=== PATIENT | female | born 1960 | race Caucasian/White ===

== ENCOUNTER → 2019-12-22 14:16 | Outpatient (BNVA) | payer OTHER, SELFPAY | PROVIDERS: PCP Internal Medicine; Visit Provider Anesthesiology | DX: M47.816 Spondylosis without myelopathy or radiculopathy, lumbar region (principal); M51.36 Other intervertebral disc degeneration, lumbar region; M96.1 Postlaminectomy syndrome, not elsewhere classified; G89.4 Chronic pain syndrome | CPT/HCPCS: 99212 ==

== ENCOUNTER 2020-01-07 07:36 | Outpatient (REF) | payer OTHER, SELFPAY ==
[2020-01-07 09:35] LABS: MANUAL DIFF FLAG NO
[2020-01-07 09:42] LABS: Basophils Percent Auto 0.8 % (0-2); Eosinophils Absolute Auto 0.1 X10*3/uL (0.0-0.4); Eosinophils Percent Auto 2.3 % (0-4); Hemoglobin 13.2 g/dl (12.0-16.0); Imm Gran Abs Auto 0.01 X10*3/uL (0.00-0.03); Imm Gran Pct Auto 0.2 % (0.0-0.4); Lymphocytes Absolute Auto 1.3 X10*3/uL (1.2-4.9); Lymphocytes Percent Auto 26.7 % (20-40); Mean Corpuscular HGB Conc 32.2 g/dl (31.0-35.0); Mean Corpuscular Hemoglobin 31.3 pg (27.0-33.0); Mean Corpuscular Volume 97.2 fL (80-98); Mean Platelet Volume 10.6 fL (9.4-12.3); Monocytes Absolute Auto 0.4 X10*3/uL (0.1-1.2); Monocytes Percent Auto 7.6 % (2-11); Neutrophils Percent Auto 62.4 % (45-73); Platelet Count 265 X10*3/uL (160-400); Red Blood Count 4.22 X10*6/uL (4.20-5.50); Red Cell Distribution Width 12.5 % (11.0-16.0); White Blood Count 4.8 X10*3/uL (4.8-10.8)
[2020-01-07 09:46] LABS: Estimated Average Glucose 114 mg/dL; Hemoglobin A1c % 5.6 %
[2020-01-07 10:04] LABS: Anion Gap 14 (12-20); Blood Urea Nitrogen 13 mg/dL (9-16); Calcium 8.7 mg/dL (8.4-10.2); Carbon Dioxide 27 mmol/L (22-29); Chloride 107 mmol/L (96-108); Cholesterol 249 mg/dL; Estimated Glomerular Filt Rate > 60; Glucose Fasting 96 mg/dL (60-99); HDL Cholesterol 66 mg/dL; LDL Cholesterol Calculated 170 mg/dl; Potassium 4.5 mmol/l (3.3-5.1); Sodium 143 mmol/L (135-145); Triglycerides 68 mg/dL
[2020-01-07 10:29] LABS: TSH reflex Free T4 1.08 mIU/mL (0.32-4.0)
== END 2020-01-07 07:37 | disposition home or self-care (01) ==
LOC: HO.LAB 07:36
PROVIDERS: PCP Internal Medicine; Visit Provider Nurse Practitioner Family
DX: Z00.00 Encounter for general adult medical examination without abnormal findings (principal)
CPT/HCPCS: 36415; 80048; 80061; 83036; 84443; 85025

== ENCOUNTER 2020-05-02 07:34 | Outpatient (REF) | payer OTHER, SELFPAY ==
[2020-05-02 07:59] LABS: MANUAL DIFF FLAG NO
[2020-05-02 08:03] LABS: Basophils Percent Auto 0.9 % (0-2); Eosinophils Absolute Auto 0.1 X10*3/uL (0.0-0.4); Eosinophils Percent Auto 2.7 % (0-4); Hematocrit 40.3 % (37-47); Hemoglobin 13.1 g/dl (12.0-16.0); Lymphocytes Absolute Auto 1.3 X10*3/uL (1.2-4.9); Lymphocytes Percent Auto 29.4 % (20-40); Mean Corpuscular HGB Conc 32.5 g/dl (31.0-35.0); Mean Corpuscular Volume 95.3 fL (80-98); Mean Platelet Volume 10.4 fL (9.4-12.3); Monocytes Absolute Auto 0.4 X10*3/uL (0.1-1.2); Monocytes Percent Auto 8.2 % (2-11); Neutrophils Absolute Auto 2.7 X10*3/uL (2.0-8.3); Neutrophils Percent Auto 58.8 % (45-73); Platelet Count 255 X10*3/uL (160-400); Red Blood Count 4.23 X10*6/uL (4.20-5.50); Red Cell Distribution Width 12.4 % (11.0-16.0); White Blood Count 4.5 X10*3/uL (4.8-10.8)
[2020-05-02 08:37] LABS: Alanine Aminotransferase 10 U/L (0-31); Albumin Level 4.5 g/dL (3.5-5.0); Alkaline Phosphatase 107 U/L (39-117); Anion Gap 11 (12-20); Aspartate Amino Transferase 16 U/L (5-31); Bilirubin Total 0.5 mg/dL (0.0-1.0); Blood Urea Nitrogen 15 mg/dL (9-16); Calcium 9.5 mg/dL (8.4-10.2); Carbon Dioxide 29 mmol/L (22-29); Chloride 106 mmol/L (96-108); Cholesterol 230 mg/dL; Estimated Glomerular Filt Rate > 60; Glucose Fasting 105 mg/dL (60-99); HDL Cholesterol 54 mg/dL; LDL Cholesterol Calculated 162 mg/dl; Sodium 141 mmol/L (135-145); Total Protein 6.7 g/dL (6.5-8.0); Triglycerides 70 mg/dL
[2020-05-02 08:58] LABS: TSH reflex Free T4 1.33 uIU/mL (0.32-4.0)
[2020-05-07 13:22] LABS: Vitamin D 25-OH, D2 <4 ng/mL; Vitamin D 25-OH, D3 48 ng/mL; Vitamin D 25-OH, Total 48 ng/mL (30-100)
== END 2020-05-02 07:35 | disposition home or self-care (01) ==
LOC: HO.LAB 07:34
PROVIDERS: PCP Internal Medicine; Visit Provider Internal Medicine
DX: E78.5 Hyperlipidemia, unspecified (principal); R63.5 Abnormal weight gain; E55.9 Vitamin D deficiency, unspecified
CPT/HCPCS: 36415; 80053; 80061; 82306; 84443; 85025

== ENCOUNTER → 2020-05-03 08:00 | Outpatient (BNVA) | payer OTHER, SELFPAY | PROVIDERS: PCP Internal Medicine; Visit Provider Anesthesiology | DX: M47.816 Spondylosis without myelopathy or radiculopathy, lumbar region (principal); M51.36 Other intervertebral disc degeneration, lumbar region; M96.1 Postlaminectomy syndrome, not elsewhere classified; G89.4 Chronic pain syndrome; Z79.899 Other long term (current) drug therapy | CPT/HCPCS: 99212 ==

== ENCOUNTER → 2020-08-22 10:01 | Outpatient (BNVA) | payer OTHER, SELFPAY | PROVIDERS: PCP Internal Medicine; Visit Provider Psychiatry & Neurology Neurology | DX: G47.62 Sleep related leg cramps (principal); G47.00 Insomnia, unspecified | CPT/HCPCS: 99202 ==

== ENCOUNTER 2020-08-25 09:00 | Outpatient (RCR) | payer OTHER, SELFPAY ==
--- NOTE | 2020-05-30 13:17 | MHC.PT.EP ---
[facility] [place] Office [place] [facility] [place] Office [address] Rowan Vnan [address] [phone] F: [phone] F: [phone] F: [phone] F: [phone] Physical Therapy Plan of Care Date of Evaluation: 05/30/20 Date of Surgery: 03/10/20 Diagnosis: chronic pain syndrome other intervertebral disc degenerative, lumbar region spondylosis withotu myelopathy or radiculopathy, lumbar region Assessment: 60 y/o male referred to PT with chronic pain syndrome, other intervertebral disc degeneration lumbar region, spondylosis without myelopathy or radiculopathy lumbar region. Pt has PMH significant for laminectomy lumbar spine 03/10/20, cervical fusion C4-7 2014, and anxiety/depression. She reports pain and difficulty with sitting, transitional movements and feels like she veers when she walks. Examination shows decreased lumbar AROM, decreased core and LE strength, poor squat mechanics, and impaired gait pattern with intermittent drifting. Pt reports Dr. Araujo would like her to perform nerve flossing. Recommend PT 2x/week for 4 weeks to address impairments, implement HEP, and optimize functional mobility. POC to include nerve glides, log-rolling, core stabilization, and balance training. Frequency and Duration: The patient will be seen 2x/week for 4 weeks Short Term Goals: 2 weeks: 1. I with HEP 2. Pt will demonstrate proper log roll technique without cues 5/5x 3. 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 I with HEP and self management 2. Pt will be able to sit > 30minutes with pain < 3/10 Treatment Plan: Modalities to reduce pain, spasms and effusion. Manual therapy to restore motion and function. Therapeutic exercise to improve strength and flexibility. Neuromuscular re-education for posture and balance. Therapeutic activities to return to functional activities of daily living. Electronically signed by: Missy Childs PT Please sign and return to therapist. Thank you for your referral.
--- NOTE | 2020-08-30 14:09 | MHC.PT.DC ---
[facility] [place] Office [place] Office [place] Office [address] Rowan Vann 140 [facility] [phone] F: [phone] F: [phone] F: [phone] F: [phone] Physical Therapy Discharge Report Diagnosis: chronic pain syndrome other intervertebral disc degenerative, lumbar region spondylosis withotu myelopathy or radiculopathy, lumbar region Date of Surgery: 03/10/20 Date of Evaluation: 05/30/20 Date of Discharge: 08/30/20 Treatments to Date: 12 Cancellations to Date: 5 No Shows to Date: 0 Discharge Status: Recommend MD Follow-up Discharge Summary: The patient overall reports minimal to no improvement with physical therapy to this point. She is still experiencing low back pain and radicular symptoms including lower extremity numbness. She is independent with her home exercise program including core stabilization and a thoracolumbar and lower extremity flexibility program. She is discharged from this physical therapy plan of care. She does have a follow-up with her doctor and her surgeon in the near future. Electronically signed by: Lady Pérez PT, DPT Please sign and return to therapist. Thank you for your referral.
== END 2020-08-30 14:10 | disposition home or self-care (01) ==
LOC: HO.PT 09:00
PROVIDERS: PCP Internal Medicine; Visit Provider Anesthesiology
DX: G89.4 Chronic pain syndrome (principal); M51.36 Other intervertebral disc degeneration, lumbar region; M47.816 Spondylosis without myelopathy or radiculopathy, lumbar region
CPT/HCPCS: 97110; 97112; 97161; 97530

== ENCOUNTER → 2020-09-07 09:06 | Outpatient (BNVA) | payer OTHER, SELFPAY | PROVIDERS: PCP Internal Medicine; Visit Provider Anesthesiology | DX: M47.816 Spondylosis without myelopathy or radiculopathy, lumbar region (principal); M51.36 Other intervertebral disc degeneration, lumbar region; M96.1 Postlaminectomy syndrome, not elsewhere classified; G89.4 Chronic pain syndrome | CPT/HCPCS: 99212 ==

== ENCOUNTER 2020-09-22 08:01 | Outpatient (REF) | payer OTHER, SELFPAY ==
[2020-09-22 08:45] LABS: MANUAL DIFF FLAG NO
[2020-09-22 08:55] LABS: Basophils Percent Auto 0.7 % (0-2); Eosinophils Absolute Auto 0.1 X10*3/uL (0.0-0.4); Hematocrit 39.8 % (37-47); Hemoglobin 12.9 g/dl (12.0-16.0); Imm Gran Abs Auto 0.01 X10*3/uL (0.00-0.03); Imm Gran Pct Auto 0.2 % (0.0-0.4); Lymphocytes Absolute Auto 1.4 X10*3/uL (1.2-4.9); Lymphocytes Percent Auto 30.2 % (20-40); Mean Corpuscular HGB Conc 32.4 g/dl (31.0-35.0); Mean Corpuscular Hemoglobin 31.1 pg (27.0-33.0); Mean Corpuscular Volume 95.9 fL (80-98); Mean Platelet Volume 10.4 fL (9.4-12.3); Monocytes Absolute Auto 0.4 X10*3/uL (0.1-1.2); Monocytes Percent Auto 9.7 % (2-11); Neutrophils Absolute Auto 2.6 X10*3/uL (2.0-8.3); Neutrophils Percent Auto 57.2 % (45-73); Platelet Count 216 X10*3/uL (160-400); Red Blood Count 4.15 X10*6/uL (4.20-5.50); Red Cell Distribution Width 12.3 % (11.0-16.0); White Blood Count 4.5 X10*3/uL (4.8-10.8)
[2020-09-23 09:31] LABS: Lyme Blot 1.41 index
[2020-09-24 13:28] LABS: Lyme Abs Screen POSITIVE
[2020-09-27 10:46] LABS: 18 KD (IgG) Band NON-REACTIVE; 23 KD (IgG) Band NON-REACTIVE; 23 KD (IgM) Band REACTIVE; 28 KD (IgG) Band NON-REACTIVE; 30 KD (IgG) Band NON-REACTIVE; 39 KD (IgM) Band NON-REACTIVE; 41 KD (IgM) Band NON-REACTIVE; 45 KD (IgG) Band NON-REACTIVE; 58 KD (IgG) Band NON-REACTIVE; 66 KD (IgG) Band NON-REACTIVE; 93 KD (IgG) Band NON-REACTIVE; Lyme IgG Blot Interp NEGATIVE (NEGATIVE); Lyme IgM Blot Interp NEGATIVE (NEGATIVE)
== END 2020-09-22 08:02 | disposition home or self-care (01) ==
LOC: HO.LAB 08:01
PROVIDERS: PCP Internal Medicine; Visit Provider Nurse Practitioner Family
DX: S30.860A Insect bite (nonvenomous) of lower back and pelvis, initial encounter (principal); W57.XXXA Bitten or stung by nonvenomous insect and other nonvenomous arthropods, initial encounter; D72.819 Decreased white blood cell count, unspecified
CPT/HCPCS: 36415; 85025; 86617; 86618

== ENCOUNTER → 2020-10-23 19:18 | Outpatient (REF) | payer OTHER, SELFPAY | LOC: HO.SL 19:18 | PROVIDERS: PCP Internal Medicine; Visit Provider Psychiatry & Neurology Neurology | DX: G47.62 Sleep related leg cramps (principal); G47.00 Insomnia, unspecified; R40.0 Somnolence | CPT/HCPCS: 95810 ==

== ENCOUNTER → 2020-11-13 13:46 | Outpatient (BNVA) | payer OTHER, SELFPAY | PROVIDERS: Visit Provider Orthopaedic Surgery | DX: M25.531 Pain in right wrist (principal) | CPT/HCPCS: 20550; 99202; J1100 ==

== ENCOUNTER → 2020-11-14 09:35 | Outpatient (BNVA) | payer OTHER, SELFPAY | PROVIDERS: PCP Internal Medicine; Visit Provider Psychiatry & Neurology Neurology ==

== ENCOUNTER 2021-01-17 10:57 | Observation (INO) | payer OTHER, SELFPAY ==
[2021-01-17] VITALS (7 sets, daily range): BP systolic 98–186; BP diastolic 53–95; PULSE 51–113; RESP 12–18; TEMP 36.1–36.9; O2SAT 96–100; BMI 25.7
--- NOTE | 2021-01-17 | ECG_ITS ---
Test Reason : marilyn symptoms Blood Pressure : / mmHG Vent. Rate : 098 BPM Atrial Rate : 098 BPM P-R Int : 158 ms QRS Dur : 070 ms QT Int : 350 ms P-R-T Axes : 060 -34 027 degrees QTc Int : 446 ms Normal sinus rhythm Possible Left atrial enlargement Left axis deviation Abnormal ECG No previous ECGs available Referred By: Generic ED Physician Electronically Signed By:NAREN HIGHTOWER MD
--- NOTE | ~2021-01-17 | CT_ITS ---
EXAMINATION: CT HEAD WITHOUT CONTRAST (STROKE PROTOCOL) CLINICAL INFORMATION: Stroke protocol. Tingling left arm and face. COMPARISON: None. TECHNIQUE: Contiguous axial imaging was performed from the skull base to vertex without intravenous administration of contrast. This CT examination was performed using dose optimization techniques as appropriate, variously including the following: *Automated exposure control *Adjustment of mA and/or kV according to patient size (this includes techniques or standardized protocols for targeted exams where dose is matched to indication/reason for exam; i.e. extremities or head) *Use of iterative reconstruction technique DLP: 637 mGy-cm. FINDINGS: There is no intracranial hemorrhage, hematoma, or extra-axial fluid collection. The ventricles are normal in size. There is no hydrocephalus, edema, or mass effect. The polanco-white matter differentiation appears symmetric. There is no acute infarct or mass lesion. The calvarium appears intact. There is no pneumocephalus or orbital emphysema. The visualized sinuses and middle ears and mastoid air cells show no significant mucosal thickening. There are no air-fluid levels. CT/CT head for stroke IMPRESSION: No acute intracranial findings. This critical result was discussed with Dr. Plunkett at 1208 hours on 01/17/2021. It was ascertained that the content and urgency of the report was understood at the time of direct communication.
--- NOTE | ~2021-01-17 | CT_ITS ---
EXAMINATION: CT ANGIOGRAM NECK WITH CONTRAST CT ANGIOGRAM BRAIN WITH CONTRAST CLINICAL INFORMATION: Possible thrombectomy. Large vessel occlusion. COMPARISON: Head CT 01/17/2021. TECHNIQUE: Test bolus sequences followed by intravenous administration 100 mL of Omnipaque 350. Helical imaging was performed in the axial plane from the thoracic inlet to the skull vertex. Delayed postcontrast imaging of the head was also performed. The data was processed at the ep technologist workstation for generation of MIP sequences. Angled MIPs and volume rendered reformatted images were also generated at an offline 3D workstation. Stenoses are assessed in accordance with NASCET criteria unless otherwise indicated. This CT examination was performed using dose optimization techniques as appropriate, variously including the following: *Automated exposure control *Adjustment of mA and/or kV according to patient size (this includes techniques or standardized protocols for targeted exams where dose is matched to indication/reason for exam; i.e. extremities or head) *Use of iterative reconstruction technique DLP: 1455 mGy-cm FINDINGS: Head CT: There is no intracranial hemorrhage, large acute infarction, or mass lesion. The ventricles are normal in size and configuration without evidence of hydrocephalus. There is no abnormal enhancement. The visualized paranasal sinuses and mastoid air cells are clear. Maxillary and mandibular dental disease is seen. Neck CTA: The aortic arch and great vessel origins are patent. The bilateral common carotid arteries are patent. Atheromatous changes are seen at the right carotid bifurcation without significant stenosis of the proximal internal carotid artery. The left internal carotid artery is patent. The bilateral vertebral arteries are patent. Head CTA: No proximal vessel occlusion is seen. There is a 2.8 mm medially projecting aneurysm arising from the paraclinoid segment of the left internal carotid artery best seen on series 6 image 292/891. Non-vascular findings: There is no consolidation within the upper lungs. A 5 mm pulmonary nodule seen in the right upper lobe abutting the pleura. CT/CT angio head neck stroke IMPRESSION: No acute intracranial abnormality identified. No large vessel occlusion or high-grade narrowing within the head or neck arteries. Incidentally noted 2.8 mm medially projecting aneurysm arising from the paraclinoid segment of the left internal carotid artery. 5 mm right upper lobe pulmonary nodule. According to the updated 2017 Fleischner Society recommendations, the advised follow-up imaging for solid nodules < 6 mm is: LOW RISK PATIENT: No routine follow-up. HIGH RISK PATIENT: Optional CT at 12 months. Degenerative changes are seen within the spine. There are postoperative findings of anterior cervical discectomy and fusion from C4 to C7. This critical result was discussed with Dr. Wallace on 01/17/2021 12:24 PM, and it was ascertained that the content and urgency of the report was understood at the time of direct communication.
--- NOTE | ~2021-01-17 | MR_ITS ---
EXAMINATION: MR BRAIN WITHOUT CONTRAST CLINICAL INFORMATION: Stroke. COMPARISON: CTA head and neck from 01/17/2021. TECHNIQUE: MRI of the brain was obtained using routine sequences without contrast. FINDINGS: Potential punctate focus of restricted diffusion within the right cerebellar hemisphere of these image ). No additional focal restricted diffusion is demonstrated to suggest acute or subacute cerebral ischemia. No evidence of acute or chronic hemorrhagic products on heme-sensitive imaging. Scattered periventricular and deep white matter T2 FLAIR hyperintensities consistent with mild underlying microangiopathy. The ventricles are normal in morphology and size. No abnormal mass effect. No midline shift. Normal appearance of the pituitary gland. Normal positioning of the cerebellar tonsils. Normal arterial and venous vascular flow voids are present. Normal, homogeneous marrow signal. Partially visualized anterior fusion of the cervical spine. Mild mucosal thickening of the paranasal sinuses. No signal abnormalities within the mastoids. MR/MR head/brain wo con IMPRESSION: 1. Potential punctate focus of restricted diffusion within the right cerebellar hemisphere may represent artifact versus a tiny acute infarct. 2. No additional acute intracranial abnormalities. 3. Mild underlying microangiopathy.
--- NOTE | 2021-01-17 11:28 | ED_ITS ---
HPI - Neuro Symptoms/Deficit General Chief Complaint: Neuro Symptoms/Deficit Stated Complaint: hbp Time Seen by Provider: 01/17/21 11:28 Source: patient Mode of arrival: ambulatory Limitations: no limitations History of Present Illness HPI Narrative: left facial, left arm and left leg tingling, started about 2 hours ago. Onset (ago): hour(s) Location: left face, left arm and left leg Severity: mild Associated symptoms: denies other symptoms Related Data Home Medications Medication Instructions Recorded Confirmed clonazepam 0.5 mg tablet 0.5 mg PO BID PRN 01/06/20 01/17/21 gabapentin 800 mg tablet 800 mg PO TID 01/06/20 01/17/21 acetaminophen 325 mg tablet 650 mg PO Q4H PRN 01/17/21 01/17/21 fluticasone propionate 50 1 spray INTRANASAL DAILY PRN 01/17/21 01/17/21 mcg/actuation nasal spray,suspension gabapentin 100 mg capsule 100 mg PO TID 01/17/21 01/17/21 melatonin 10 mg tablet 10 mg PO BEDTIME 01/17/21 01/17/21 Allergies Allergy/AdvReac Type Severity Reaction Status Date / Time Erythromycin Allergy Intermediate shortness Verified 11/14/20 09:36 of breath quetiapine [From SEROQUEL] Allergy Intermediate TREMORS, Verified 11/14/20 09:36 ISSUES WITH EYE PRESSURE, INCREASED SI trazodone [TRAZODONE] Allergy Mild DIFFICULTY Verified 11/14/20 09:36 BREATHING, shortness of breath Review of Systems Constitutional: Constitutional: Reports no additional constitutional complaints Eyes: Eyes: Reports no additional eye complaints ENT: Denies dizziness Cardiovascular: Cardiovascular: Reports no additional cardiovascular complaints Respiratory: Respiratory: Reports as per HPI Gastrointestinal: Gastrointestinal: Reports no additional gastrointestinal complaints Genitourinary: Genitourinary: Reports no additional female genitourinary complaints Musculoskeletal: Musculoskeletal: Reports no additional musculoskeletal complaints Integumentary/Breasts: Skin/Breast: Denies rash Neurologic: Reports system reviewed and no additional complaints, except as documented, Denies dizziness and Denies Sensory deficit (Neuro) Psychiatric: Psychiatric: Denies anxiety PMFSH Past Medical History Medical History Anxiety Chronic pain syndrome Daytime sleepiness De Quervain's disease (tenosynovitis) Disc degeneration, lumbar Dyslipidemia Left ear pain Leukopenia Mild recurrent major depression WILL (obstructive sleep apnea) Polyarthralgia Postlaminectomy syndrome, cervical Spondylosis without myelopathy or radiculopathy, lumbar region Weight gain Surgical History History of carpal tunnel release History of fusion of cervical spine Status post lumbar spine surgery for decompression of spinal cord Family History Family History Father Emphysema of lung Mother Stroke Hypertension Diabetes Brother Bladder cancer Son No problems noted. Daughter No problems noted. 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 Physical Exam Vital Signs: Vital Signs: Last Vital Signs Temp 98.4 F 01/17/21 13:16 Pulse 78 01/17/21 13:16 Resp 12 01/17/21 13:16 BP 153/88 H 01/17/21 13:16 Pulse Ox 100 01/17/21 13:16 Body Mass Index 25.7 Const: General: healthy appearing Nutritional Appearance: average body habitus Orientation/consciousness: oriented to person and patient oriented x3 Limitations: no limitations HENMT: Head: Yes normal to inspection Ears: external ears normal General nose exam: Normal external nose present Mouth: Normal oral and palatal mucosa present and oropharynx normal Throat: Yes posterior oropharynx normal Eyes: General: appearance normal, both eyes and all related structures Neck: Other: supple Neck: Yes normal visual inspection Chest: Chest palpation & inspection: normal inspection of the chest Resp: Auscultation: clear to auscultation bilaterally Cardio: Jugular venous distension: no JVD Rate: regular rate Rhythm: regular rhythm Heart sounds: S1 normal heart sound present and S2 normal heart sound present GI: Inspection: Yes normal to inspection Palpation (GI): Soft to palpation, nontender and No hepatosplenomegaly present Auscultation: normal bowel sounds : General: Yes no CVA tenderness Back/Spine/Pelvis: Back: no CVA tenderness Skin: General skin exam: no rashes or lesions noted Neuro: General: oriented to person and patient oriented x3 Cranial nerves: Yes CN's II-XII intact bilaterally Motor exam (neuro): 5/5 motor strength pr esent throughout Sensory Exam: No Sensory deficit (Neuro) Extrem: General: Yes normal to inspection Psych: Appearance: grossly normal Course Reevaluation(s) Reevaluation #1: on reavaluation patient is tearful and crying states that her leg is still numb worse than her arm and face. In addition incidental carotid aneurysm, I will admit for TIA Time: 13:55 [facility] - Neuro Symptoms/Deficit Lab Data Result diagrams: 01/17/21 11:48 01/17/21 11:48 Labs: Lab Results 01/17/21 01/17/21 01/17/21 Range/Units 11:40 11:48 11:48 WBC 5.5 (4.8-10.8) X10*3/uL RBC 4.09 L (4.20-5.50) X10*6/uL Hgb 13.1 (12.0-16.0) g/dl Hct 39.4 (37.0-47.0) % MCV 96.3 (80.0-98.0) fL MCH 32.0 (27.0-33.0) pg MCHC 33.2 (31.0-35.0) g/dl RDW 12.2 (11.0-16.0) % Plt Count 231 (160-400) X10*3/uL MPV 10.5 (9.4-12.3) fL Immature Gran % (Auto) 0.2 (0.0-0.4) % Neut % (Auto) 67.1 (45-73) % Lymph % (Auto) 25.1 (20-40) % [place] % (Auto) 6.5 (2-11) % Eos % (Auto) 0.4 (0-4) % Baso % (Auto) 0.7 (0-2) % Lymph # (Auto) 1.4 (1.2-4.9) X10*3/uL [place] # (Auto) 0.4 (0.1-1.2) X10*3/uL Eos # (Auto) 0.0 (0.0-0.4) X10*3/uL Baso # (Auto) 0.0 (0.0-0.2) X10*3/uL Abs Immat Gran (auto) 0.01 (0.00-0.03) X10*3/uL Absolute Neuts (auto) 3.7 (2.0-8.3) x10*3/uL Absolute Nucleated RBC 0.000 (0.0-0.012) X10*3/uL Nucleated RBC % (auto) 0.0 (0.0-0.2) /100WBC PT 12.5 (9.9-13.0) SEC INR 1.1 (0.9-1.1) Sodium (135-145) mmol/L Potassium (3.3-5.1) mmol/L Chloride (96-108) mmol/L Carbon Dioxide (22-29) mmol/L Anion Gap (12-20) BUN (9-16) mg/dL Creatinine (0.5-1.4) mg/dL Estim Creat Clear Calc Estimated GFR POC Glucose 109 (60-115) mg/dL Random Glucose (60-115) mg/dL Calcium (8.4-10.2) mg/dL Troponin I High Sens (<3.5-17.0) ng/L 01/17/21 01/17/21 01/17/21 Range/Units 11:48 11:48 13:13 WBC (4.8-10.8) X10*3/uL RBC (4.20-5.50) X10*6/uL Hgb (12.0-16.0) g/dl Hct (37.0-47.0) % MCV (80.0-98.0) fL MCH (27.0-33.0) pg MCHC (31.0-35.0) g/dl RDW (11.0-16.0) % Plt Count (160-400) X10*3/uL MPV (9.4-12.3) fL Immature Gran % (Auto) (0.0-0.4) % Neut % (Auto) (45-73) % Lymph % (Auto) (20-40) % [place] % (Auto) (2-11) % Eos % (Auto) (0-4) % Baso % (Auto) (0-2) % Lymph # (Auto) (1.2-4.9) X10*3/uL [place] # (Auto) (0.1-1.2) X10*3/uL Eos # (Auto) (0.0-0.4) X10*3/uL Baso # (Auto) (0.0-0.2) X10*3/uL Abs Immat Gran (auto) (0.00-0.03) X10*3/uL Absolute Neuts (auto) (2.0-8.3) x10*3/uL Absolute Nucleated RBC (0.0-0.012) X10*3/uL Nucleated RBC % (auto) (0.0-0.2) /100WBC PT (9.9-13.0) SEC INR (0.9-1.1) Sodium 144 (135-145) mmol/L Potassium 5.1 (3.3-5.1) mmol/L Chloride 108 (96-108) mmol/L Carbon Dioxide 28 (22-29) mmol/L Anion Gap 13 (12-20) BUN 15 (9-16) mg/dL Creatinine 0.81 (0.5-1.4) mg/dL Estim Creat Clear Calc 68.2 Estimated GFR > 60 POC Glucose 88 (60-115) mg/dL Random Glucose 119 H (60-115) mg/dL Calcium 10.1 D (8.4-10.2) mg/dL Troponin I High Sens < 3.5 (<3.5-17.0) ng/L Imaging Data CT scan - head: Radiologist's impression: no acute stroke seen. IMPRESSION: No acute intracranial findings. ? This critical result was discussed with Dr. Plunkett at 1208 hours on 01/17/2021. It was ascertained that the content and urgency of the report was understood at the time of direct communication. CT angio head and neck: Radiologist's impression: IMPRESSION: No acute intracranial abnormality identified. No large vessel occlusion or high-grade narrowing within the head or neck arteries. Incidentally noted 2.8 mm medially projecting aneurysm arising from the paraclinoid segment of the left internal carotid artery. 5 mm right upper lobe pulmonary nodule. According to the updated 2017 Fleischner Society recommendations, the advised follow-up imaging for solid nodules < 6 mm is: ?? LOW RISK PATIENT: No routine follow-up. ?? HIGH RISK PATIENT: Optional CT at 12 months. Degenerative changes are seen within the spine. There are postoperative findings of anterior cervical discectomy and fusion from C4 to C7. ? This critical result was discussed with Dr. Wallace on 01/17/2021 12:24 PM, and it was ascertained that the content and urgency of the report was understood at the time of direct communication. ? ECG Data Attestation: I personally reviewed and interpreted this ECG as follows: Interpretation: sinus rate of 100, no st or twave changes NIH Stroke Scale Level of Consciousness: Alert Level of Consciousness Questions: Answers both questions correctly Level of Consciousness Commands: Performs both tasks correctly Best Gaze: Normal Visual: No visual loss Facial Palsy: Normal Motor Arm (Right): No drift Motor Arm (Left): No drift Motor Leg (Right): No drift Motor Leg (Left): No drift Limb Ataxia: Absent Sensory: Mild to moderate sensory loss Best Language: No aphasia Dysarthia: Normal Extinction and Inattention: No abnormality Score: 1 Discharge Plan Discharge Clinical Impression: Transient ischemic attack (TIA) Patient Disposition: Admitted As Inpatient
[2021-01-17 11:45] LABS: Glucose, Whole Blood 109 mg/dL (60-115)
[2021-01-17 11:56] LABS: MANUAL DIFF FLAG NO
[2021-01-17 12:04] LABS: Basophils Percent Auto 0.7 % (0-2); Eosinophils Percent Auto 0.4 % (0-4); Hematocrit 39.4 % (37.0-47.0); Hemoglobin 13.1 g/dl (12.0-16.0); Imm Gran Abs Auto 0.01 X10*3/uL (0.00-0.03); Imm Gran Pct Auto 0.2 % (0.0-0.4); Lymphocytes Absolute Auto 1.4 X10*3/uL (1.2-4.9); Lymphocytes Percent Auto 25.1 % (20-40); Mean Corpuscular HGB Conc 33.2 g/dl (31.0-35.0); Mean Corpuscular Volume 96.3 fL (80.0-98.0); Mean Platelet Volume 10.5 fL (9.4-12.3); Monocytes Absolute Auto 0.4 X10*3/uL (0.1-1.2); Monocytes Percent Auto 6.5 % (2-11); Neutrophils Absolute Auto 3.7 x10*3/uL (2.0-8.3); Neutrophils Percent Auto 67.1 % (45-73); Platelet Count 231 X10*3/uL (160-400); Red Blood Count 4.09 X10*6/uL (4.20-5.50); Red Cell Distribution Width 12.2 % (11.0-16.0); White Blood Count 5.5 X10*3/uL (4.8-10.8)
[2021-01-17 12:11] LABS: INTERNATIONAL NORM RATIO 1.1 (0.9-1.1); Prothrombin Time 12.5 SEC (9.9-13.0)
[2021-01-17 12:18] LABS: Anion Gap 13 (12-20); Blood Urea Nitrogen 15 mg/dL (9-16); Calcium 10.1 mg/dL (8.4-10.2); Carbon Dioxide 28 mmol/L (22-29); Chloride 108 mmol/L (96-108); Creatinine Clr Calc Pharmacy 68.2; Estimated Glomerular Filt Rate > 60; Glucose Random 119 mg/dL (60-115); Potassium 5.1 mmol/L (3.3-5.1); Sodium 144 mmol/L (135-145)
[2021-01-17] MEDS: iohexoL 350 MG/ML 100 ML INFUS..BTL IV (12:22)
[2021-01-17 12:25] LABS: Troponin-I High Sensitivity < 3.5 ng/L (<3.5-17.0)
[2021-01-17 12:29] LABS: Stroke Lab Use COMPLETE
[2021-01-17 13:19] LABS: Glucose, Whole Blood 88 mg/dL (60-115)
--- NOTE | 2021-01-17 13:45 | PC.NURSE ---
pt seen by dr. chavez, pt aware of plan of care.
--- NOTE | 2021-01-17 14:06 | PHA.MEDREC ---
Pharmacy Consult ? Medication Reconciliation Pharmacy has completed the medication reconciliation. There are no remarkable issues for provider's attention. Radha Hazel, PromiseD
--- NOTE | 2021-01-17 14:09 | MHC.STROKE ---
[address] MCKEON THAT HE WAS ACTIVATING A STROKE PROTOCOL . WALK-IN, LKW/ONSET 0900. NIHSS = 1 FOR SENSORY/NUMBNESS FACE/ARM/LEG. CTH AND CTA H/N DONE, REVIEWED BY DR PRAJAPATI AND DISCUSSED WITH DR MCKEON. THERE IS AN INCIDENTAL 2.8MM ANEURYSN LEFT ICA ON THE CTA. HER BP IS RUNNING 170'S/100'S, EXCLUDED FROM TPA BASED ON LOW NIHSS AND NON-DISABLING SYMPTOMS. I MET WITH THE PATIENT, SHE IS VERY ANXIOUS, I WALKED HER THE BATHROOM, SLIGHTLY UNSTEADY GAIT WHICH EXPLAINED THAT IS HER BASELINE. PASSED SWALLOW SCREEN. SHE IS VERY ANXIOUS AND SAID SHE IS TREATED FOR THAT. SHE LIVES AND CARES FOR HER MOTHER, THE MOTHER IS WITH HER AND I HAVE ARRANGED FOR THE [facility] TO GIVE THE MOTHER A RIDE HOME. SHE LIVES CLOSE BY. STROKE EDUCATION INITIATED.
--- NOTE | 2021-01-17 14:30 | PC.NURSE ---
pt seen by hosp, pt aware of plan of care for admission to hosp.
--- NOTE | 2021-01-17 14:34 | PM.IMHP ---
History of Present Illness Date of Service: 01/17/21 Chief Complaint: Tingling sensation A 60 years old female with PMH of depression, Lyme disease, WILL, PTSD among others who presented to the hospital with 2 hours history of tingling sensation on the left side of her body. The patient reports that she was trying to read her blood pressure this morning and found a significantly elevated at the same time she started feeling left-sided face, arm and leg tingling sensation with numbness. Denies any headache, lightheadedness, double vision, nausea or vomiting or any focal weakness. She presented to the emergency where a CT scan and CTA were negative for any acute findings but noticed a small aneurysm and pulm nodule. Admitted for further evaluation and treatment. Review of Systems Review of Systems: No fever, chills but reports feeling anxious and worried No chest pain, palpitation but concerned about high blood pressure readings No shortness of breath or coughing No abdominal pain, nausea or vomiting No urinary symptoms No any rash or wounds PMFSH Medical History Anxiety Chronic pain syndrome Daytime sleepiness De Quervain's disease (tenosynovitis) Disc degeneration, lumbar Dyslipidemia Left ear pain Leukopenia Mild recurrent major depression WILL (obstructive sleep apnea) Polyarthralgia Postlaminectomy syndrome, cervical Spondylosis without myelopathy or radiculopathy, lumbar region Weight gain Family History Father Emphysema of lung Mother Stroke Hypertension Diabetes Brother Bladder cancer Son No problems noted. Daughter No problems noted. 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 Meds Allergies Allergy/AdvReac Type Severity Reaction Status Date / Time Erythromycin Allergy Intermediate shortness Verified 11/14/20 09:36 of breath quetiapine [From SEROQUEL] Allergy Intermediate TREMORS, Verified 11/14/20 09:36 ISSUES WITH EYE PRESSURE, INCREASED SI trazodone [TRAZODONE] Allergy Mild DIFFICULTY Verified 11/14/20 09:36 BREATHING, shortness of breath Active Medications: Current Medications Acetaminophen (Acetaminophen 325 Mg Tablet) 650 mg PO Q4H PRN PRN Reason: Pain, Mild (Pain Scale 1-3) Amlodipine Besylate (Amlodipine Besylate 5 Mg Tablet) 5 mg PO DAILY BRAIN; Protocol Aspirin (Aspirin Enteric Coated 81 Mg Tablet.Dr) 162 mg PO DAILY BRAIN Clonazepam (Clonazepam 0.5 Mg Tablet) 0.5 mg PO BID PRN PRN Reason: Anxiety Enoxaparin Sodium (Enoxaparin Sodium 40 Mg/0.4 Ml Syringe) 40 mg SUBCUT Q24H BRAIN Fluticasone Propionate (Fluticasone Propionate Nasal [address] [place]) 1 spray NOSTRIL-B DAILY PRN PRN Reason: Allergy Symptoms Gabapentin (Gabapentin 100 Mg Capsule) 100 mg PO TID BRAIN Gabapentin (Gabapentin 400 Mg Capsule) 800 mg PO TID COUNT INCLUDES THE [facility] Ondansetron HCl (Ondansetron Hcl 4 Mg/2 Ml Vial) 4 mg IVPUSH Q8H PRN PRN Reason: Nausea and Vomiting Pharmacy Consult (Consult Rx Perform Med Rec) 1 each MISCELLANE ONCE PRN PRN Reason: Consult order Sodium Chloride (0.9 % Sodium Chloride Flush 3 Ml Syringe) 3 ml IVFLUSH QSHIFT COUNT INCLUDES THE [facility] Home Medications Medication Instructions Recorded Confirmed Last Taken Type clonazepam 0.5 mg tablet 0.5 mg PO BID PRN 01/06/20 01/17/21 01/17/21 History gabapentin 800 mg tablet 800 mg PO TID 01/06/20 01/17/21 01/17/21 History acetaminophen 325 mg tablet 650 mg PO Q4H PRN 01/17/21 01/17/21 01/17/21 History fluticasone propionate 50 1 spray INTRANASAL DAILY PRN 01/17/21 01/17/21 Unknown History mcg/actuation nasal spray,suspension gabapentin 100 mg capsule 100 mg PO TID 01/17/21 01/17/21 01/17/21 History melatonin 10 mg tablet 10 mg PO BEDTIME 01/17/21 01/17/21 01/17/21 History Physical Exam Vital Signs and Narrative: Vital Signs: Last Vital Signs Temp 98.4 F 01/17/21 13:16 Pulse 78 01/17/21 13:16 Resp 12 01/17/21 13:16 BP 153/88 H 01/17/21 13:16 Pulse Ox 100 01/17/21 13:16 Body Mass Index 25.7 Const: Other: Constitutional : Alert, oriented, anxious and distressed Neck : Normal inspection, Supple Cardiovascular : RRR, S1 S2, no lower extremity edema Respiratory : Good bilateral air entry, no crackles, wheezes or rhonchi Gastrointestinal: soft, lax, Normal bowel sounds, Non tender Skin : Warm, Dry Neurological : Alert & oriented x3, No focal deficit, mild numbness noted on superficial exam Results Labs CBC and Chem 7: 01/17/21 11:48 01/17/21 11:48 Labs: Laboratory Results - last 24 hr 01/17/21 01/17/21 01/17/21 11:40 11:48 11:48 MCV 96.3 MCH 32.0 MCHC 33.2 RDW 12.2 Plt Count 231 MPV 10.5 Immature Gran % (Auto) 0.2 Neut % (Auto) 67.1 Lymph % (Auto) 25.1 [place] % (Auto) 6.5 Eos % (Auto) 0.4 Baso % (Auto) 0.7 Lymph # (Auto) 1.4 [place] # (Auto) 0.4 Eos # (Auto) 0.0 Baso # (Auto) 0.0 Abs Immat Gran (auto) 0.01 Absolute Neuts (auto) 3.7 Absolute Nucleated RBC 0.000 Nucleated RBC % (auto) 0.0 PT 12.5 INR 1.1 Anion Gap Estim Creat Clear Calc Estimated GFR POC Glucose 109 Random Glucose Calcium Troponin I High Sens 01/17/21 01/17/21 01/17/21 11:48 11:48 13:13 MCV MCH MCHC RDW Plt Count MPV Immature Gran % (Auto) Neut % (Auto) Lymph % (Auto) [place] % (Auto) Eos % (Auto) Baso % (Auto) Lymph # (Auto) [place] # (Auto) Eos # (Auto) Baso # (Auto) Abs Immat Gran (auto) Absolute Neuts (auto) Absolute Nucleated RBC Nucleated RBC % (auto) PT INR Anion Gap 13 Estim Creat Clear Calc 68.2 Estimated GFR > 60 POC Glucose 88 Random Glucose 119 H Calcium 10.1 D Troponin I High Sens < 3.5 Imaging Radiologist's Impressions: Impressions Head CT 01/17/21 11:34 IMPRESSION: No acute intracranial findings. This critical result was discussed with Dr. Plunkett at 1208 hours on 01/17/2021. It was ascertained that the content and urgency of the report was understood at the time of direct communication. Head/Neck CTA 01/17/21 11:36 IMPRESSION: No acute intracranial abnormality identified. No large vessel occlusion or high-grade narrowing within the head or neck arteries. Incidentally noted 2.8 mm medially projecting aneurysm arising from the paraclinoid segment of the left internal carotid artery. 5 mm right upper lobe pulmonary nodule. According to the updated 2017 Fleischner Society recommendations, the advised follow-up imaging for solid nodules < 6 mm is: LOW RISK PATIENT: No routine follow-up. HIGH RISK PATIENT: Optional CT at 12 months. Degenerative changes are seen within the spine. There are postoperative findings of anterior cervical discectomy and fusion from C4 to C7. This critical result was discussed with Dr. Wallace on 01/17/2021 12:24 PM, and it was ascertained that the content and urgency of the report was understood at the time of direct communication. Assessment and Plan (1) Cerebral aneurysm: Status: Acute (2) Anxiety attack: Status: Acute (3) Tingling: Status: Acute A 60 years old female with PMH of depression, Lyme disease, WILL, PTSD among others who presented to the hospital with 2 hours history of tingling sensation on the left side of her body. Tingling sensation Concerning for possible TIA or stroke CT, CTA negative for any acute findings Started on baby aspirin Hold on MRI for now Monitor neurological signs Consider neurology evaluation the morning Uncontrolled hypertension Likely secondary to anxiety given normal previous readings To give amlodipine 5 mg now and monitor Anxiety attack Patient is very concerned about her blood pressure, mother, life and diseases To use as needed clonazepam To get care team evaluation Cerebral aneurysm Noticed on CTA arising from the left internal carotid next Lyme to follow-up as outpatient with neurosurgery Lung nodule Noted on CTA To repeat CT scan in 6 months DVT PPX Lovenox Quality Stroke Does the patient have a stroke diagnosis?: No VTE Prior VTE?: No VTE Risk Level:: Medical - moderate - high VTE Device Contraindication: Treatment Not Indicated VTE Drug Contraindication: N/A - Med Ordered
--- NOTE | 2021-01-17 14:35 | MHC.STROKE ---
NEUROLOGY CONSULT BY DR PRAJAPATI DONE TODAY WAS DONE UNDER AN ICORRECT ACCOUNT [[id number]. A PRINTED COPY OF THE CONSULT IS ON THE HARD COPY CHART OR REFER TO THAT ACCCOUNT NUMBER UNDER VISITS/REPORTS. HE IS RECOMMENDING A MRI. SEE HIS CONSULT.
[2021-01-17] MEDS: Gabapentin 400 MG CAPSULE 800 MG PO ×2 (16:11→21:38)
[2021-01-17] MEDS: Gabapentin 100 MG CAPSULE PO ×2 (16:12→21:38)
[2021-01-17] MEDS: amLODIPine Besylate 5 MG TABLET PO (16:13)
[2021-01-17] MEDS: clonazePAM 0.5 MG TABLET PO ×2 (16:13→22:31)
[2021-01-17] MEDS: 0.9 % Sodium Chloride Flush 3 ML SYRINGE IVFLUSH ×2 (16:23→21:40)
[2021-01-17] MEDS: Enoxaparin Sodium 40 MG/0.4 ML SYRINGE SUBCUT (17:19)
[2021-01-17] MEDS: Melatonin 3 MG TABLET 9 MG PO (22:31)
[2021-01-18 03:42] VITALS: BP 105/68; PULSE 62; RESP 18; TEMP 36.4; O2SAT 97
[2021-01-18 07:02] LABS: Hematocrit 38.5 % (37.0-47.0); Hemoglobin 12.7 g/dl (12.0-16.0); Mean Corpuscular Hemoglobin 32.2 pg (27.0-33.0); Mean Corpuscular Volume 97.7 fL (80.0-98.0); Platelet Count 227 X10*3/uL (160-400); Red Blood Count 3.94 X10*6/uL (4.20-5.50); Red Cell Distribution Width 12.2 % (11.0-16.0); White Blood Count 10.1 X10*3/uL (4.8-10.8)
[2021-01-18] MEDS: 0.9 % Sodium Chloride Flush 3 ML SYRINGE IVFLUSH (07:24)
[2021-01-18 07:31] LABS: Anion Gap 13 (12-20); Blood Urea Nitrogen 13 mg/dL (9-16); Calcium 9.2 mg/dL (8.4-10.2); Carbon Dioxide 28 mmol/L (22-29); Chloride 107 mmol/L (96-108); Cholesterol 208 mg/dL; Creatinine Clr Calc Pharmacy 67.4; Estimated Glomerular Filt Rate > 60; Glucose Random 92 mg/dL (60-115); HDL Cholesterol 52 mg/dL; LDL Cholesterol Calculated 137 mg/dl; Potassium 4.4 mmol/L (3.3-5.1); Sodium 144 mmol/L (135-145); Triglycerides 97 mg/dL
[2021-01-18 08:00] VITALS: BP 99/54; PULSE 53; RESP 18; TEMP 36.7; O2SAT 96
--- NOTE | 2021-01-18 10:12 | P.DS_ITS ---
DS: Providers Provider Date of Service: 01/18/21 Date of admission: 01/17/21 14:30 Primary care physician: Radha Gee MD Consults: 01/17/21 14:30 Consult to Care Team Routine Comment: Reason for consultation: PTSD, Stressed, in tears, not suicidal. for eval and rec. DS: Diagnosis Discharge Diagnosis (1) Cerebral aneurysm: Status: Acute (2) Anxiety attack: Status: Acute (3) Tingling: Status: Acute DS: Summary Hospital Course Hospital Course: Admission note HPI A 60 years old female with PMH of depression, Lyme disease, WILL, PTSD among others who presented to the hospital with 2 hours history of tingling sensation on the left side of her body.? The patient reports that she was trying to read her blood pressure this morning and found a significantly elevated at the same time she started feeling left- sided face, arm and leg tingling sensation with numbness.? Denies any headache, lightheadedness, double vision, nausea or vomiting or any focal weakness. She presented to the emergency where a CT scan and CTA were negative for any acute findings but noticed a small aneurysm and pulm nodule. Admitted for further evaluation and treatment. Hospital course The patient was admitted for observation were reported tingling sensation on the left side. CT scan and CTA were negative for any acute findings. Evaluated by Neurology who recommended doing MRI to rule out any strokes or masses as her symptoms is likely a result of migraine disorder. MRI was negative for any acute findings. CT a showed an evidence of left internal carotid aneurysm small in size of 2.8 mm. To be evaluated as outpatient with neurosurgery. CTA also showed 5 mm right upper lobe pulmonary nodule which need to be followed in 6 months by PCP as well. To follow-up with Dr. Aiken in the office after calling for an appointment. To see your primary care physician to arrange for neuro surgery consult for internal carotid aneurysm and to arrange for a repeat CT chest in 6 months to follow-up on lung nodule. Time Spent with Patient Time attestation: Total time spent providing and/or coordinating discharge services: Discharge coordination time: Greater than 30 minutes Quality: Stroke Does the patient have a stroke diagnosis?: No Physical Exam Vital Signs: Vital Signs: Last Vital Signs Temp 98.0 F 01/18/21 08:00 Pulse 53 01/18/21 08:00 Resp 18 01/18/21 08:00 BP 99/54 L 01/18/21 08:00 Pulse Ox 96 01/18/21 08:00 Body Mass Index 25.7 Const: Other: Constitutional : Alert, oriented, anxious and distressed Neck : Normal inspection, Supple Cardiovascular : RRR, S1 S2, no lower extremity edema Respiratory : Good bilateral air entry, no crackles, wheezes or rhonchi Gastrointestinal: soft, lax, Normal bowel sounds, Non tender Skin : Warm, Dry Neurological : Alert & oriented x3, No focal deficit, mild numbness noted on superficial exam DS: Data Data Completed and Pending Labs on day of discharge: Laboratory Results - last 24 hr 01/17/21 01/17/21 01/17/21 11:40 11:48 11:48 WBC 5.5 RBC 4.09 L Hgb 13.1 Hct 39.4 MCV 96.3 MCH 32.0 MCHC 33.2 RDW 12.2 Plt Count 231 MPV 10.5 Immature Gran % (Auto) 0.2 Neut % (Auto) 67.1 Lymph % (Auto) 25.1 [place] % (Auto) 6.5 Eos % (Auto) 0.4 Baso % (Auto) 0.7 Lymph # (Auto) 1.4 [place] # (Auto) 0.4 Eos # (Auto) 0.0 Baso # (Auto) 0.0 Abs Immat Gran (auto) 0.01 Absolute Neuts (auto) 3.7 Absolute Nucleated RBC 0.000 Nucleated RBC % (auto) 0.0 PT 12.5 INR 1.1 Sodium Potassium Chloride Carbon Dioxide Anion Gap BUN Creatinine Estim Creat Clear Calc Estimated GFR POC Glucose 109 Random Glucose Calcium Troponin I High Sens Triglycerides Cholesterol LDL Cholesterol, Calc HDL Cholesterol 01/17/21 01/17/21 01/17/21 11:48 11:48 13:13 WBC RBC Hgb Hct MCV MCH MCHC RDW Plt Count MPV Immature Gran % (Auto) Neut % (Auto) Lymph % (Auto) [place] % (Auto) Eos % (Auto) Baso % (Auto) Lymph # (Auto) [place] # (Auto) Eos # (Auto) Baso # (Auto) Abs Immat Gran (auto) Absolute Neuts (auto) Absolute Nucleated RBC Nucleated RBC % (auto) PT INR Sodium 144 Potassium 5.1 Chloride 108 Carbon Dioxide 28 Anion Gap 13 BUN 15 Creatinine 0.81 Estim Creat Clear Calc 68.2 Estimated GFR > 60 POC Glucose 88 Random Glucose 119 H Calcium 10.1 D Troponin I High Sens < 3.5 Triglycerides Cholesterol LDL Cholesterol, Calc HDL Cholesterol 01/18/21 01/18/21 05:34 05:34 WBC 10.1 RBC 3.94 L Hgb 12.7 Hct 38.5 MCV 97.7 MCH 32.2 MCHC 33.0 RDW 12.2 Plt Count 227 MPV 11.0 Immature Gran % (Auto) Neut % (Auto) Lymph % (Auto) [place] % (Auto) Eos % (Auto) Baso % (Auto) Lymph # (Auto) [place] # (Auto) Eos # (Auto) Baso # (Auto) Abs Immat Gran (auto) Absolute Neuts (auto) Absolute Nucleated RBC 0.000 Nucleated RBC % (auto) 0.0 PT INR Sodium 144 Potassium 4.4 Chloride 107 Carbon Dioxide 28 Anion Gap 13 BUN 13 Creatinine 0.82 Estim Creat Clear Calc 67.4 Estimated GFR > 60 POC Glucose Random Glucose 92 Calcium 9.2 D Troponin I High Sens Triglycerides 97 Cholesterol 208 LDL Cholesterol, Calc 137 HDL Cholesterol 52 Discharge Plan Discharge Patient Disposition: Home, Self-Care Discharge Diagnosis: Tingling sensation Referrals: Radha Schultz MD [Primary Care Provider] - 1 Week Discharge Medications: Continued gabapentin 100 mg capsule 100 mg PO TID RF: 0 fluticasone propionate 50 mcg/actuation spray,suspension 1 spray intranasal DAILY PRN (Reason: Allergy Symptoms) RF: 0 melatonin 10 mg tablet 10 mg PO BEDTIME RF: 0 acetaminophen 325 mg Tablet 650 mg PO Q4H PRN (Reason: Pain) RF: 0 clonazepam 0.5 mg tablet 0.5 mg PO BID PRN (Reason: Anxiety) RF: 0 gabapentin 800 mg tablet 800 mg PO TID RF: 0 Discharge Orders: Discharge Order (Routine); Ordered 01/18/21 Ordered By: Kraig Fernandez Diet: advance to usual diet Activity on Discharge: As tolerated Stand Alone Forms: Patient Portal Discharge page Care Plan Goals: Read below Health Concerns: Read below Plan of Treatment: Read below Assessment: You were admitted to the hospital for evaluation of left-sided numbness. Images for your brain done including CT scan and MRI were negative for any acute findings or stroke. You were evaluated by neurologist with think her symptoms are result of migraine headache or nerve injury. Try to take pain medications and improvement should be expected the next few days. To follow-up with Dr. Aiken in the office after calling for an appointment. To see your primary care physician to arrange for neuro surgery consult for internal carotid aneurysm and to arrange for a repeat CT chest in 6 months to follow-up on lung nodule.
[2021-01-18] MEDS: Gabapentin 400 MG CAPSULE 800 MG PO (10:53)
[2021-01-18] MEDS: Aspirin Enteric Coated 81 MG TABLET.DR PO (10:53)
[2021-01-18] MEDS: Gabapentin 100 MG CAPSULE PO (10:53)
[2021-01-18] MEDS: clonazePAM 0.5 MG TABLET PO (10:55)
--- NOTE | 2021-01-18 11:13 | MHC.CM.PN ---
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 SHE REPORTS SHE IS INDEPENDENT WITH ALL CARE AND MOBILITY PT DENIES USE OF DME OR SERVICES SHE SAYS HER DAUGHTER IS HER HCP, COPY REQUESTED PCP IS [facility] NOTICE DELIVERED PT REPORTS SHE IS FEELING OVERWHELMED AND ASKS TO SPEAK WITH SOMEONE FROM CARE TEAM. CM WILL PASS REQUEST TO THE CARE TEAM THE CONSULT WAS ALREADY PLACED. PT WILL DC HOME TODAY WITH NO SERVICES
--- NOTE | 2021-01-19 11:11 | MHC.CARE ---
CARE Team left VM with Pt regarding support secondary to Pt being on list for follow up call.
--- NOTE | 2021-01-19 12:36 | MHC.CARE ---
Follow up call completed.
== END 2021-01-18 13:42 | disposition home or self-care (01) ==
LOC: HO.ED 13:56 → HO.EDOVER 14:36 → HO.S3 18:19
PROVIDERS: Admitting Provider Student in an Organized Health Care Education/Training Program; Emergency Provider Emergency Medicine; PCP Internal Medicine; Visit Provider Student in an Organized Health Care Education/Training Program
DX: I67.1 Cerebral aneurysm, nonruptured (principal); R20.2 Paresthesia of skin; R94.31 Abnormal electrocardiogram [ECG] [EKG]; I99.8 Other disorder of circulatory system; R91.1 Solitary pulmonary nodule; M43.22 Fusion of spine, cervical region
CPT/HCPCS: 36415; 70450; 70496; 70498; 70551; 80048; 80061; 82947; 84484; 85025; 85027; 85610; 90471; 90686; 93005; 96372; 96374; 96375; 99218; 99285; J1650; Q9967

== ENCOUNTER 2021-01-29 08:31 | Outpatient (REF) | payer OTHER, SELFPAY ==
--- NOTE | ~2021-01-29 | XR_ITS ---
EXAMINATION: XR HAND, LEFT XR HAND, RIGHT CLINICAL INFORMATION: Polyarthralgia COMPARISON: None TECHNIQUE: 3 views of each hand FINDINGS: Left hand: No fracture or dislocation. Alignment is maintained. Mild joint space narrowing throughout the interphalangeal joints with small osteophytes present. Mild degenerative change of the first carpal metacarpal joint. The soft tissues are unremarkable. No osseous erosions. Right hand: No fracture or dislocation. Alignment is anatomic. Mild joint space narrowing with small osteophytes throughout the interphalangeal joints. Mild degenerative change of the first carpometacarpal joint. No osseous erosion. The soft tissues are unremarkable. XR/XR hand LT min 3V IMPRESSION: Mild osteoarthritic changes bilaterally.
--- NOTE | ~2021-01-29 | XR_ITS ---
EXAMINATION: XR HAND, LEFT XR HAND, RIGHT CLINICAL INFORMATION: Polyarthralgia COMPARISON: None TECHNIQUE: 3 views of each hand FINDINGS: Left hand: No fracture or dislocation. Alignment is maintained. Mild joint space narrowing throughout the interphalangeal joints with small osteophytes present. Mild degenerative change of the first carpal metacarpal joint. The soft tissues are unremarkable. No osseous erosions. Right hand: No fracture or dislocation. Alignment is anatomic. Mild joint space narrowing with small osteophytes throughout the interphalangeal joints. Mild degenerative change of the first carpometacarpal joint. No osseous erosion. The soft tissues are unremarkable. XR/XR hand RT min 3V IMPRESSION: Mild osteoarthritic changes bilaterally.
--- NOTE | ~2021-01-29 | XR_ITS ---
EXAMINATION: XR CERVICAL SPINE CLINICAL INFORMATION: Polyarthralgia COMPARISON: 02/09/2019 TECHNIQUE: 5 views of the cervical spine were obtained. FINDINGS: There is anterior fusion hardware in place from C4-C7. There is solid bony fusion of the vertebral bodies. Hardware is intact. Disc spaces at the upper cervical spine are maintained with remaining vertebral body heights maintained. No bony neuroforaminal narrowing. The atlantoaxial joint is well aligned. The dens is intact. The prevertebral soft tissues are unremarkable. The visualized lung apices are clear. XR/XR cervical spine 5V IMPRESSION: Intact fusion hardware from C4 to C7 with appropriate alignment.
--- NOTE | ~2021-01-29 | XR_ITS ---
EXAMINATION: XR FOOT, LEFT XR FOOT, RIGHT CLINICAL INFORMATION: Polyarthralgia COMPARISON: None TECHNIQUE: 3 views of each foot FINDINGS: Left foot: No fracture or dislocation. Mild joint space narrowing at the first metatarsophalangeal joint with osteophyte formation. Small plantar heel spur. No ankle joint effusion. The soft tissues are unremarkable. Right foot: No fracture or dislocation. Alignment is anatomic. Mild joint space narrowing at the first metatarsophalangeal joint with small osteophytes present. The soft tissues are unremarkable. No ankle joint effusion. XR/XR foot RT min 3V IMPRESSION: Mild degenerative changes bilaterally at the first metatarsophalangeal joints.
--- NOTE | ~2021-01-29 | XR_ITS ---
EXAMINATION: XR FOOT, LEFT XR FOOT, RIGHT CLINICAL INFORMATION: Polyarthralgia COMPARISON: None TECHNIQUE: 3 views of each foot FINDINGS: Left foot: No fracture or dislocation. Mild joint space narrowing at the first metatarsophalangeal joint with osteophyte formation. Small plantar heel spur. No ankle joint effusion. The soft tissues are unremarkable. Right foot: No fracture or dislocation. Alignment is anatomic. Mild joint space narrowing at the first metatarsophalangeal joint with small osteophytes present. The soft tissues are unremarkable. No ankle joint effusion. XR/XR foot LT min 3V IMPRESSION: Mild degenerative changes bilaterally at the first metatarsophalangeal joints.
== END 2021-01-29 08:32 | disposition home or self-care (01) ==
LOC: HO.HMGCX 08:31
PROVIDERS: PCP Internal Medicine; Visit Provider Internal Medicine Rheumatology
DX: M25.50 Pain in unspecified joint (principal)
CPT/HCPCS: 72050; 73130; 73630

== ENCOUNTER → 2021-03-06 12:43 | Outpatient (BNVA) | payer OTHER, SELFPAY | PROVIDERS: PCP Internal Medicine; Referring Provider Internal Medicine; Visit Provider Psychiatry & Neurology Neurology ==

== ENCOUNTER 2021-03-08 18:07 | Outpatient (REF) | payer OTHER, SELFPAY | END 2021-03-08 18:08 | disposition home or self-care (01) | LOC: HO.LNP 18:07 | PROVIDERS: Visit Provider Internal Medicine | DX: N39.0 Urinary tract infection, site not specified (principal) | CPT/HCPCS: 87086; 87088; 87186 ==

== ENCOUNTER 2021-06-21 08:00 | Outpatient (RCR) | payer OTHER, SELFPAY ==
[2021-04-06 10:05] VITALS: BP 124/62; PULSE 53; O2SAT 96
--- NOTE | 2021-04-06 12:28 | MHC.PT.EP ---
[facility] [place] Office [place] Office [place] Office [address] Rowan Vann [address] [phone] F: [phone] F: [phone] F: [phone] F: [phone] Physical Therapy Plan of Care Date of Evaluation: Date of Surgery: Diagnosis: ABNORMALITIES OF GAIT AND MOBILITY Assessment: 61 YO FEMALE REF TO PT W H/O TIA ON 01/17/21 W LEFT LE RESIDUAL STRENGTH AND STANDING BALANCE DEFICITS. Pt IS CURRENTLY IN THE PROCESS OF MEDICAL MANAGEMENT OF HER INTERNAL CAROTID ANEURYSM- SHE NOTED SHE WAS NOT GIVEN ANY ACTIVITY RESTRICTIONS. SHE INTERMITTENTLY USES HER CANE- MORE FOR OUTDOOR FITNESS WALKING, TODAY WE DISCUSSED IMPORTANCE OF MORE CONSISTENT GAIT W CANE. SHE HAS A H/O LUMBAR AND CERVICAL LAMINECTOMIES, AND, PRE-EXISTING TO TIA SHE HAD LEs NEUROPATHY. OBJECTIVELY, Pt HAS DECENT LEs AROM, LIMITED TRUNK AROM, DECR PROX LEs AND TRUNK STRENGTH, DECR SENSATION IN LEFT LE (NUMBNESS/ TINGLING), AND FLUCTUATING PAIN IN HER HIP AND LB. FUNCTIONALLY, Pt HAS (+) BALANCE DEFICITS W MORE STATIC TASKS, Pt INCONSISTENTLY UTILIZES HER CANE CREATING AN ALTERED/ UNSTEADY GAIT, REQ ASSIST TO REGAIN NEUTRAL POSE AT TIMES. Pt WOULD BENEFIT FROM PT TO ADDRESS ABOVE FINDINGS -> DEV A HEP ADDRESSING STRENGTH AND BALANCE , GUIDING Pt W IMPROVING SAFETY AWARENESS AND FUNCTIONAL INDEP. Frequency and Duration: The patient will be seen 1-2 x WK x 8 WKS Short Term Goals: Pt DEMON STATIC STAND, FOR SIMUL ADLs x 2 MIN, W/O LOB IN 2 WKS Pt DEMO IMPROVED GAIT MECH W LEAST RESTRICTIVE AD ON LEVEL GROUND AND STAIRS IN 3 WKS INITIATE / DEV A HEP TO ADDRESS LEs STRENGTH AND TRUNK STAB IN 2 WKS Outreach Associate Goals: Pt REPORT INCREASED PERF W REG ADLs EVIDENT IN IMPROVED LEFI BY 8-10 POINTS ( AT EVAL 45/80 ) IN 8 WKS *Pt SIMUL 3:3 ADLs , ESPEC FUNCTIONAL SQUAT, W PROPER MECHANICS IN 8 WKS *Pt DEMON IMPROVED STRENGTH IN LEFT > Rt LE/ TRUNK BY 1 GRADE IN 8 WKS Treatment Plan: Modalities to reduce pain, spasms and effusion. Manual therapy to restore motion and function. Therapeutic exercise to improve strength and flexibility. Neuromuscular re-education for posture and balance. Therapeutic activities to return to functional activities of daily living. Electronically signed by: Barbara Mackey PT Please sign and return to therapist. Thank you for your referral.
--- NOTE | 2021-06-21 09:31 | MHC.PT.DC ---
[facility] [place] Office [place] Office [place] Office [address] Rowan Vann 140 [facility] [phone] F: [phone] F: [phone] F: [phone] F: [phone] Physical Therapy Discharge Report Diagnosis: ABNORMALITIES OF GAIT AND MOBILITY Date of Surgery: Date of Evaluation: 04/06/21 Date of Discharge: 06/21/21 Treatments to Date: 9 Cancellations to Date: 1 No Shows to Date: Discharge Status: Achieved Goals Improved Function Independent with HEP Discharge Summary: Pt MET PT GOALS AT THIS TIME- SHE IS INDEP W PROGR HEP; Pt PERF HIGHER LEVEL FOOT STRENGTHENING/ STAB EXER, JORDANA IMPROVED CATIE LEs AND TRUNK STRENGTH- SHE DEMON OVERALL IMPROVED GAIT AND FUNCTIONAL MOB W/O LOB. Electronically signed by: Barbara Mackey,PT Please sign and return to therapist. Thank you for your referral.
== END 2021-06-21 09:32 | disposition home or self-care (01) ==
LOC: HO.PT 08:00
PROVIDERS: PCP Internal Medicine; Visit Provider Internal Medicine
DX: R26.89 Other abnormalities of gait and mobility (principal); R29.898 Other symptoms and signs involving the musculoskeletal system
CPT/HCPCS: 97110; 97112; 97162; 97530

== ENCOUNTER 2021-07-03 07:13 | Outpatient (REF) | payer OTHER, SELFPAY ==
[2021-07-03 07:43] LABS: MANUAL DIFF FLAG NO
[2021-07-03 08:34] LABS: Basophils Absolute Auto 0.1 X10*3/uL (0.0-0.2); Basophils Percent Auto 0.5 % (0-2); Eosinophils Absolute Auto 0.1 X10*3/uL (0.0-0.4); Eosinophils Percent Auto 1.3 % (0-4); Hematocrit 38.4 % (37.0-47.0); Hemoglobin 12.4 g/dl (12.0-16.0); Imm Gran Abs Auto 0.03 X10*3/uL (0.00-0.03); Imm Gran Pct Auto 0.3 % (0.0-0.4); Lymphocytes Absolute Auto 1.6 X10*3/uL (1.2-4.9); Lymphocytes Percent Auto 17.7 % (20-40); Mean Corpuscular HGB Conc 32.3 g/dl (31.0-35.0); Mean Corpuscular Hemoglobin 31.2 pg (27.0-33.0); Mean Corpuscular Volume 96.5 fL (80.0-98.0); Mean Platelet Volume 10.9 fL (9.4-12.3); Monocytes Absolute Auto 0.6 X10*3/uL (0.1-1.2); Monocytes Percent Auto 6.7 % (2-11); Neutrophils Absolute Auto 6.8 x10*3/uL (2.0-8.3); Neutrophils Percent Auto 73.5 % (45-73); Platelet Count 224 X10*3/uL (160-400); Red Blood Count 3.98 X10*6/uL (4.20-5.50); Red Cell Distribution Width 12.3 % (11.0-16.0); White Blood Count 9.2 X10*3/uL (4.8-10.8)
[2021-07-03 09:00] LABS: Alanine Aminotransferase 26 U/L (0-31); Albumin Level 4.4 g/dL (3.5-5.0); Alkaline Phosphatase 84 U/L (39-117); Anion Gap 13 (12-20); Aspartate Amino Transferase 23 U/L (5-31); Bilirubin Total 0.4 mg/dL (0.0-1.0); Blood Urea Nitrogen 19 mg/dL (9-16); Carbon Dioxide 29 mmol/L (22-29); Chloride 105 mmol/L (96-108); Cholesterol 174 mg/dL; Estimated Glomerular Filt Rate > 60; Glucose Fasting 89 mg/dL (60-99); HDL Cholesterol 68 mg/dL; LDL Cholesterol Calculated 96 mg/dl; Potassium 4.7 mmol/L (3.3-5.1); Sodium 142 mmol/L (135-145); Total Protein 6.7 g/dL (6.5-8.0); Triglycerides 51 mg/dL
== END 2021-07-03 07:14 | disposition home or self-care (01) ==
LOC: HO.LAB 07:13
PROVIDERS: PCP Internal Medicine; Visit Provider Nurse Practitioner Family
DX: E78.5 Hyperlipidemia, unspecified (principal); M25.50 Pain in unspecified joint; D64.9 Anemia, unspecified
CPT/HCPCS: 36415; 80053; 80061; 85025

== ENCOUNTER 2021-07-17 07:40 | Outpatient (REF) | payer OTHER, SELFPAY ==
--- NOTE | ~2021-07-17 | CT_ITS ---
EXAMINATION: CT CHEST WITHOUT CONTRAST CLINICAL INFORMATION: Solitary pulmonary nodule. COMPARISON: None TECHNIQUE: Multidetector volumetric CT imaging of the chest was done. Axial MIP volume rendering provided. Sagittal and coronal reformatted images were obtained. This CT examination was performed using dose optimization techniques as appropriate, variously including the following: *Automated exposure control *Adjustment of mA and/or kV according to patient size (this includes techniques or standardized protocols for targeted exams where dose is matched to indication/reason for exam; i.e. 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 LUNGS: The lungs are well-expanded and clear of acute pneumonic process. There is a 5 mm nodule right posterior apex image 92/5, 4 mm ground-glass nodule right upper lobe axial image 148/5, 3 mm nodule right upper lobe anterior segment image 220/5, 4 mm nodule right middle lobe axial image 244/5, 4 mm nodule subpleural based left lower lobe axial image 244/5, 3 mm nodule left lower lobe adjacent to the major fissure axial image 245/5, ground-glass 3 mm nodule left upper lobe peripherally based axial image 209/5, subpleural-based 3 mm nodule right middle lobe axial image 289/5, 3 mm nodule left lower lobe axial image 311/5, 2 mm nodule right lower lobe image 317/5. MEDIASTINUM: The thyroid lobes are symmetrical and normal. The central trachea and the bronchi are widely patent. The heart size and great vessels are normal caliber. No pericardial effusion seen. No abnormal sized mediastinal or hilar lymph nodes. PLEURA: There is no pleural effusion. No pleural mass or thickening. AXILLA: There are small bilateral axillary lymph nodes. The largest left axillary lymph node measures 1.2 cm in long axis with normal-appearing central medulla. The chest wall appears unremarkable. UPPER ABDOMEN: Visualized liver, spleen, pancreas and bilateral adrenal glands are unremarkable. OSSEOUS STRUCTURES: There is mild ventral spondylosis mid dorsal spine. No lytic or sclerotic process seen. CT/CT chest wo con IMPRESSION: Multiple bilateral pulmonary nodules, the largest measuring 5 mm in the right upper lobe. Recommend followup as per Fleischner guidelines in 12 months and then followed by 18 months. No abnormal mediastinal or axillary lymphadenopathy seen. Fleischner guidelines were followed.
== END 2021-07-17 07:41 | disposition home or self-care (01) ==
LOC: HO.CT 07:40
PROVIDERS: PCP Internal Medicine; Visit Provider Nurse Practitioner Family
DX: R91.1 Solitary pulmonary nodule (principal)
CPT/HCPCS: 71250

== ENCOUNTER 2021-09-03 07:14 | Outpatient (REF) | payer OTHER, SELFPAY ==
[2021-09-03 08:32] LABS: Alanine Aminotransferase 20 U/L (0-31); Albumin Level 4.3 g/dL (3.5-5.0); Alkaline Phosphatase 91 U/L (39-117); Anion Gap 9 (12-20); Aspartate Amino Transferase 20 U/L (5-31); Bilirubin Total 0.5 mg/dL (0.0-1.0); Blood Urea Nitrogen 13 mg/dL (9-16); Carbon Dioxide 28 mmol/L (22-29); Chloride 108 mmol/L (96-108); Cholesterol 181 mg/dL; Estimated Glomerular Filt Rate > 60; Glucose Fasting 96 mg/dL (60-99); HDL Cholesterol 72 mg/dL; LDL Cholesterol Calculated 99 mg/dl; Potassium 4.1 mmol/L (3.3-5.1); Sodium 141 mmol/L (135-145); Total Protein 6.5 g/dL (6.5-8.0); Triglycerides 51 mg/dL
== END 2021-09-03 07:15 | disposition home or self-care (01) ==
LOC: HO.LAB 07:14
PROVIDERS: PCP Internal Medicine; Visit Provider Internal Medicine
DX: E78.5 Hyperlipidemia, unspecified (principal)
CPT/HCPCS: 36415; 80053; 80061

== ENCOUNTER → 2021-10-09 10:34 | Outpatient (BNVA) | payer OTHER, SELFPAY | PROVIDERS: PCP Internal Medicine; Visit Provider Hospitalist | DX: R91.8 Other nonspecific abnormal finding of lung field (principal); J43.9 Emphysema, unspecified; F17.210 Nicotine dependence, cigarettes, uncomplicated | CPT/HCPCS: 99202 ==

== ENCOUNTER 2022-03-11 08:47 | Outpatient (REF) | payer OTHER, SELFPAY ==
[2022-03-11 11:25] LABS: Alanine Aminotransferase 18 U/L (0-31); Albumin Level 4.5 g/dL (3.5-5.0); Alkaline Phosphatase 93 U/L (39-117); Anion Gap 11 (12-20); Aspartate Amino Transferase 22 U/L (5-31); Bilirubin Total 0.4 mg/dL (0.0-1.0); Blood Urea Nitrogen 14 mg/dL (9-16); Calcium 9.6 mg/dL (8.4-10.2); Carbon Dioxide 30 mmol/L (22-29); Chloride 109 mmol/L (96-108); Cholesterol 188 mg/dL; Estimated Glomerular Filt Rate > 60; Glucose Fasting 102 mg/dL (60-99); HDL Cholesterol 79 mg/dL; LDL Cholesterol Calculated 100 mg/dl; Potassium 4.6 mmol/L (3.3-5.1); Sodium 145 mmol/L (135-145); Total Protein 6.7 g/dL (6.5-8.0); Triglycerides 46 mg/dL
== END 2022-03-11 08:48 | disposition home or self-care (01) ==
LOC: HO.HMGCLDS 08:47
PROVIDERS: PCP Internal Medicine; Visit Provider Internal Medicine
DX: G89.4 Chronic pain syndrome (principal); E78.5 Hyperlipidemia, unspecified
CPT/HCPCS: 36415; 80053; 80061

== ENCOUNTER 2022-04-11 08:35 | Outpatient (REF) | payer OTHER, SELFPAY ==
--- NOTE | ~2022-04-11 | CT_ITS ---
EXAMINATION: CT ANGIOGRAM OF THE HEAD CLINICAL INFORMATION: Internal carotid aneurysm follow-up. COMPARISON: MRI scan of the brain and CTA of the head and neck 01/17/2021. TECHNIQUE: A noncontrast axial CT scan of the head was obtained. Test bolus series followed by intravenous administration 17 mL of Omnipaque 350. Helical imaging was performed in the axial plane from the mediastinum to the skull vertex. The degree of stenosis is based off NASCET criteria. The data was processed at the clinical technologist workstation for generation of MIP images. Three-dimensional volume rendered reformatted images were also generated at an offline 3-D workstation. This CT examination was performed using dose optimization techniques as appropriate, variously including the following: *Automated exposure control *Adjustment of mA and/or kV according to patient size (this includes techniques or standardized protocols for targeted exams where dose is matched to indication/reason for exam; i.e. extremities or head) *Use of iterative reconstruction technique DLP: 2341 mGy-cm. FINDINGS: CT Head: There is no evidence of acute intracranial hemorrhage or territorial infarction. No abnormal mass-effect or midline shift is seen. Schmidt to white matter differentiation is well preserved. No extra-axial fluid collections are identified. There is no abnormal enhancement. The ventricles and sulci normal in size. Brain parenchymal signal is unremarkable. The osseous structures and soft tissues are normal. The mastoid air cells are well-aerated. There is mucoperiosteal thickening in the right greater than left maxillary sinuses, and there are right greater than left maxillary sinus fluid levels dependently. CTA Head: In the anterior circulation, the distal internal carotid arteries within the neck appear normal. The bilateral cavernous internal carotid arteries are patent. The study redemonstrates a saccular aneurysm off the medial aspect of the left paraclinoid internal carotid artery which measures 3.2 mm (image 177/604, series 15), slightly increased compared to prior imaging. The middle and anterior cerebral arteries bilaterally demonstrate normal caliber with no evidence of focal stenosis, aneurysm or vascular malformation. There is normal arborization of the middle cerebral artery branches. The anterior communicating artery is normal. In the posterior circulation, the left vertebral artery is dominant. The vertebral arteries intradurally have uniform caliber. The basilar artery appears normal. The posterior cerebral arteries have normal caliber. The venous sinuses opacify normally. CT/CT angio head neck IMPRESSION: 1. There are no acute bleeds or territorial infarcts. 2. There are no masses or areas of abnormal enhancement. 3. The study redemonstrates an aneurysm off the medial aspect of the left paraclinoid internal carotid artery, slightly increased in size compared to prior imaging.
[2022-04-11] MEDS: iohexoL 350 MG/ML 100 ML INFUS..BTL 70 ML IV (09:34)
== END 2022-04-11 08:36 | disposition home or self-care (01) ==
LOC: HO.CT 08:35
PROVIDERS: Visit Provider Internal Medicine
DX: I67.1 Cerebral aneurysm, nonruptured (principal)
CPT/HCPCS: 70496; 70498; Q9967

== ENCOUNTER → 2022-05-14 09:53 | Outpatient (BNVA) | payer OTHER, SELFPAY | PROVIDERS: PCP Internal Medicine; Visit Provider Psychiatry & Neurology Neurology | DX: I67.1 Cerebral aneurysm, nonruptured (principal); R26.9 Unspecified abnormalities of gait and mobility | CPT/HCPCS: 99212 ==

== ENCOUNTER 2022-06-19 08:56 | Outpatient (REF) | payer OTHER, SELFPAY ==
[2022-06-21 22:09] LABS: Lyme Abs Screen <0.90 index
== END 2022-06-19 08:57 | disposition home or self-care (01) ==
LOC: HO.HMGCLDS 08:56
PROVIDERS: PCP Internal Medicine; Visit Provider Internal Medicine
DX: T14.8XXA Other injury of unspecified body region, initial encounter (principal); W57.XXXA Bitten or stung by nonvenomous insect and other nonvenomous arthropods, initial encounter; Y93.9 Activity, unspecified; Y92.9 Unspecified place or not applicable; Y99.9 Unspecified external cause status
CPT/HCPCS: 36415; 86617; 86618

== ENCOUNTER 2022-07-01 08:48 | Outpatient (REF) | payer OTHER, SELFPAY ==
--- NOTE | 2022-07-01 14:04 | PFT_ITS ---
Forced vital capacity 89%, FEV1 89%, FEV1/FVC ratio is 76. [id number] 80% and MVV 75%. Post bronchodilator therapy, there is a small improvement in FEV1 and significant improvement in [id number]. Total lung capacity 84%. Residual volume 82%. Diffusion capacity 83% CONCLUSION: The baseline results are normal, but there is a good response to bronchodilator therapy indicating that the patient may have mild bronchial asthma or reactive airways. Clinical correlation is recommended. MD ANDRES Weinstein/[facility] / [id number]
== END 2022-07-01 08:49 | disposition home or self-care (01) ==
LOC: HO.RESP 08:48
PROVIDERS: PCP Internal Medicine; Visit Provider Hospitalist
DX: R91.1 Solitary pulmonary nodule (principal)
CPT/HCPCS: 94010; 94727; 94729

== ENCOUNTER 2022-07-04 08:32 | Outpatient (REF) | payer OTHER, SELFPAY ==
--- NOTE | ~2022-07-04 | CT_ITS ---
EXAMINATION: CT CHEST WITHOUT CONTRAST CLINICAL INFORMATION: Solitary pulmonary nodule. COMPARISON: CT of the chest 07/17/2021. TECHNIQUE: Multidetector volumetric CT imaging of the chest was done. Axial MIP volume rendering provided. Sagittal and coronal reformatted images were obtained. This CT examination was performed using dose optimization techniques as appropriate, variously including the following: *Automated exposure control *Adjustment of mA and/or kV according to patient size (this includes techniques or standardized protocols for targeted exams where dose is matched to indication/reason for exam; i.e. 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 LUNGS: Again visualized are multiple pulmonary nodules 4 mm and less. The largest pulmonary nodule right upper lobe posterior apex measures 5 mm and is stable on axial image 116/6. A 4 mm ground-glass right upper lobe nodule in the right upper lobe is stable on axial image 22/4. Left lower lobe superior segment subpleural 3 mm nodule is stable as well. Other 4 mm nodules are stable as well. There is no new appearing nodule seen. No acute consolidation. The lungs are expanded. MEDIASTINUM: Thyroid lobes are symmetric and normal. The central trachea and the bronchi are widely patent. Heart size and the great vessels are normal caliber. No pericardial effusion seen. No abnormal size mediastinal or hilar lymph nodes. CORONARY ARTERY CALCIFICATION: None visualized on this study. PLEURA: There is no pleural effusion. No pleural mass or thickening. AXILLA: No lymphadenopathy. UPPER ABDOMEN: Visualized liver, spleen, pancreas and bilateral adrenal glands are unremarkable. There are no radiopaque gallstones. OSSEOUS STRUCTURES: No aggressive lytic or sclerotic process seen. CT/CT chest wo IV con IMPRESSION: Multiple bilateral upper nodules are stable. The largest 5 mm nodule in right upper lobe is stable. There are no new nodules. Recommend follow-up as per Fleischner guidelines. Fleischner guidelines were followed.
== END 2022-07-04 08:33 | disposition home or self-care (01) ==
LOC: HO.CT 08:32
PROVIDERS: PCP Internal Medicine; Visit Provider Hospitalist
DX: R91.1 Solitary pulmonary nodule (principal)
CPT/HCPCS: 71250

== ENCOUNTER 2022-07-09 08:33 | Outpatient (REF) | payer OTHER, SELFPAY ==
--- NOTE | ~2022-07-09 | MR_ITS ---
EXAMINATION: MR BRAIN WITHOUT CONTRAST MR ANGIOGRAPHY BRAIN WITHOUT CONTRAST CLINICAL INFORMATION: Gait abnormalities. Cerebral aneurysm. COMPARISON: CTA head from 04/11/2022. Brain MRI from 01/17/2021. TECHNIQUE: MRI of the brain was obtained using routine sequences without contrast. 3D [id number] MR angiography was performed through the brain without the use of intravenous gadolinium. 3D postprocessing including acquisition of multiplanar MIP reformats are obtained at the technologist workstation and utilized for image interpretation. Stenoses are assessed in accordance with NASCET criteria unless otherwise indicated. FINDINGS: Brain MRI: No focal restricted diffusion is demonstrated to suggest acute or subacute cerebral ischemia. No evidence of acute or chronic hemorrhagic products on heme-sensitive imaging. Scattered periventricular and deep white matter T2 FLAIR hyperintensities consistent with mild underlying microangiopathy. The ventricles are normal in morphology and size. No abnormal mass effect. No midline shift. Normal appearance of the pituitary gland. Normal positioning of the cerebellar tonsils. Normal arterial and venous vascular flow voids are present. Normal, homogeneous marrow signal. Moderate degenerative spondyloarthropathy of the visualized upper cervical spine. Partially visualized instrumented anterior fusion of the mid cervical spine. Mild mucosal thickening of the paranasal sinuses. No signal abnormalities within the mastoids. Head MRA: Normal flow-related signal within the anterior circulation without evidence of focal stenosis or occlusion of the intradural internal carotid, middle cerebral, or anterior cerebral arteries. Normal flow-related signal within the posterior circulation without evidence of focal stenosis or occlusion of the intradural vertebral, basilar, superior cerebellar, or posterior cerebral arteries. 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 No demonstrated new intradural aneurysms. MR/MR angio head wo con IMPRESSION: 1. No acute intracranial abnormalities. 2. Mild underlying microangiopathy. 3. 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 4. Otherwise, normal MRA of the head.
--- NOTE | ~2022-07-09 | MR_ITS ---
EXAMINATION: MR BRAIN WITHOUT CONTRAST MR ANGIOGRAPHY BRAIN WITHOUT CONTRAST CLINICAL INFORMATION: Gait abnormalities. Cerebral aneurysm. COMPARISON: CTA head from 04/11/2022. Brain MRI from 01/17/2021. TECHNIQUE: MRI of the brain was obtained using routine sequences without contrast. 3D [id number] MR angiography was performed through the brain without the use of intravenous gadolinium. 3D postprocessing including acquisition of multiplanar MIP reformats are obtained at the technologist workstation and utilized for image interpretation. Stenoses are assessed in accordance with NASCET criteria unless otherwise indicated. FINDINGS: Brain MRI: No focal restricted diffusion is demonstrated to suggest acute or subacute cerebral ischemia. No evidence of acute or chronic hemorrhagic products on heme-sensitive imaging. Scattered periventricular and deep white matter T2 FLAIR hyperintensities consistent with mild underlying microangiopathy. The ventricles are normal in morphology and size. No abnormal mass effect. No midline shift. Normal appearance of the pituitary gland. Normal positioning of the cerebellar tonsils. Normal arterial and venous vascular flow voids are present. Normal, homogeneous marrow signal. Moderate degenerative spondyloarthropathy of the visualized upper cervical spine. Partially visualized instrumented anterior fusion of the mid cervical spine. Mild mucosal thickening of the paranasal sinuses. No signal abnormalities within the mastoids. Head MRA: Normal flow-related signal within the anterior circulation without evidence of focal stenosis or occlusion of the intradural internal carotid, middle cerebral, or anterior cerebral arteries. Normal flow-related signal within the posterior circulation without evidence of focal stenosis or occlusion of the intradural vertebral, basilar, superior cerebellar, or posterior cerebral arteries. 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 No demonstrated new intradural aneurysms. MR/MR head/brain wo con IMPRESSION: 1. No acute intracranial abnormalities. 2. Mild underlying microangiopathy. 3. 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 4. Otherwise, normal MRA of the head.
== END 2022-07-09 08:34 | disposition home or self-care (01) ==
LOC: HO.MRI 08:33
PROVIDERS: PCP Internal Medicine; Visit Provider Psychiatry & Neurology Neurology
DX: I67.1 Cerebral aneurysm, nonruptured (principal); R26.9 Unspecified abnormalities of gait and mobility
CPT/HCPCS: 70544; 70551

== ENCOUNTER → 2022-07-17 10:45 | Outpatient (BNVA) | payer OTHER, SELFPAY | PROVIDERS: PCP Internal Medicine; Visit Provider Hospitalist | DX: J43.9 Emphysema, unspecified (principal); R91.8 Other nonspecific abnormal finding of lung field; F17.210 Nicotine dependence, cigarettes, uncomplicated | CPT/HCPCS: 99212 ==

== ENCOUNTER 2022-10-01 13:38 | Outpatient (AMB) | payer OTHER, SELFPAY ==
[2022-10-01 13:43] VITALS: BP 118/80; PULSE 75; O2SAT 98; BMI 27.1
--- NOTE | 2022-10-01 13:43 | A.OFFPC_ITS ---
Vital Signs 10/01/22 13:43 Height 5 ft 4 in Weight 158 lb BMI 27.1 BP 118/80 Blood Pressure Location Lt brachial Position Sitting Pulse 75 Pulse Source Pulse Oximeter Pulse Oximetry (%) 98 Oxygen Delivery Method Room Air Intake Visit Reasons: Annual exam Intake Note: Patient is here today for a physical. Wholesale Representative Required: No Accompanied by: Self / Same As Patient Allergies erythromycin base Allergy (Intermediate, Verified 10/01/22 14:11) Shortness of Breath quetiapine [From Seroquel] Allergy (Intermediate, Verified 10/01/22 14:11) Tremors, issue with eye pressure, Increased SI trazodone [TRAZODONE] Allergy (Mild, Verified 10/01/22 14:11) Difficulty breathing, shortness of breath Medication List - Last Reconciled 10/01/22 by Radha Gee MD acetaminophen 650 mg PO Q4H PRN aspirin (Adult Aspirin Regimen) 81 mg PO DAILY clonazepam 0.5 mg PO BID PRN duloxetine 30 mg PO DAILY fluticasone propionate 50 mcg/actuation 2 sprays intranasal DAILY 30 days gabapentin 100 mg PO BEDTIME gabapentin 800 mg PO TID rosuvastatin 5 mg PO BEDTIME 90 days Ventolin HFA 90 mcg/actuation (albuterol sulfate) 2 inhalations inhalation Q6H PRN 30 days NS Tobacco use date assessed: 03/11/22 Fall risk assessment: 1 Fall in past year Last assessed Fall Risk: 10/01/22 Dental Screening Dental Screen Date: 10/01/22 Did you have a dental visit in the last 12 months?: No Did you have a dental problem in the last 6 months where you did not have access to dental care?: Yes Was dental information given to patient?: Yes HPI HPI Comments History of Present Illness Details This is a 62-year-old female that comes for her physical exam. She has 0.3 cm saccular aneurysm projecting from left ICA by MRI of the brain done in June 2022 and would like to see Lenin Oseguera at [facility] from neuro surgery due to seen him before for her lumbar spine. She is very interested in surgical repair of aneurysm. Last mammogram was over a year ago. Has never had a bone density. Last Pap smear was over 3 years ago. Last colonoscopy was at 58 years old in [place] and was normal as per patient. Has abnormal gait and use a cane occasionally. Had esophageal stricture and was told that needed repair every 2-3 years. Barium swallow pending for next month. [facility] Medical History (Updated 10/01/22 @ 14:26 by Radha Gee MD) Anxiety Chronic pain syndrome Daytime sleepiness De Quervain's disease (tenosynovitis) Disc degeneration, lumbar Dyslipidemia Emphysema lung Gait disorder Left ear pain Leg weakness Leukopenia Loss of balance Mild recurrent major depression WILL (obstructive sleep apnea) Physical exam Polyarthralgia Postlaminectomy syndrome, cervical Spondylosis without myelopathy or radiculopathy, lumbar region Tobacco dependence UTI (urinary tract infection) Weight gain Surgical History History of back surgery History of carpal tunnel release History of fusion of cervical spine Status post lumbar spine surgery for decompression of spinal cord Family History Father Emphysema of lung Mother Stroke Hypertension Diabetes Brother Bladder cancer Son No problems noted. Daughter No problems noted. 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 Dinesh Dalton, Angy Pickard, Arcadio Luis and colleagues, with an educational tad from [employer]. Review of Systems Const All systems reviewed & are unremarkable except as noted in HPI and below Eyes Reports no additional complaints, Denies change in vision and Denies other visual disturbances Card Denies chest pain at rest, Denies chest pain with activity, Denies edema, Denies irregular heart rhythm, Denies claudication, Denies dyspnea, Denies dyspnea on exertion, Denies orthopnea, Denies paroxysmal nocturnal dyspnea and Denies slow heart rate Resp Denies cough, Denies dyspnea and Denies dyspnea on exertion GI Denies abdominal pain, Denies change in bowel habits, Denies excessive flatus, Denies nausea and Denies vomiting Denies urinary incontinence, Denies urinary hesitancy and Denies urinary urgency Musc Reports abnormal gait, Denies atrophy, Denies deformity and Denies limited range of motion Skin/Breast Denies bleeding lesions, Denies changing lesions and Denies rash Neuro Reports abnormal gait, Denies confusion and Denies lack of coordination Psych Denies confusion Physical exam (Primary Care) Vital Signs: Last Vital Signs Pulse 75 10/01/22 13:43 BP 118/80 10/01/22 13:43 Pulse Ox 98 10/01/22 13:43 Oxygen Delivery Method Room Air 10/01/22 13:43 BMI result Body Mass Index 27.1 Tobacco/Smoking Status: Tobacco use Status Tobacco use date assessed 03/11/22 10/01/22 13:58 Patient Tobacco Use Status Current someday Tobacco 10/01/22 13:58 Tobacco use type Cigarette 10/01/22 13:58 e-Cigarette/Vaping Use Never Used 10/01/22 13:58 Thrive Assessment: Date of Thrive Assessment Date Thrive assessed 03/11/22 10/01/22 13:58 Const General: No confusion Orientation/consciousness: patient oriented x3 and No confusion HENMT Head: Yes normal to inspection, Yes normocephalic and Yes atraumatic Ears: external ears normal Eyes General: appearance normal, both eyes and all related structures Eyelids: Yes eyelids normal Conjunctivae: conjunctivae normal Neck Neck: Yes normal visual inspection and Yes supple Resp Effort & Inspection: normal respiratory effort Auscultation: clear to auscultation bilaterally Cardio Jugular venous distension: no JVD Rate: regular rate Rhythm: regular rhythm Heart sounds: S1 normal heart sound present and S2 normal heart sound present GI Inspection: Yes normal to inspection Palpation (GI): Soft to palpation and nontender Auscultation: normal bowel sounds Skin General skin exam: no rashes or lesions noted Neuro General: patient oriented x3, no focal motor deficits and No confusion Gait exam (Neuro): Wide-based gait present Extrem General: Yes full ROM Psych Appearance: grossly normal Assessment and Plan Assessment & Plan (1) Physical exam: Code(s): Z00.00 - Encounter for general adult medical examination without abnormal findings Plan: Repeat in a year Orders: Orders Comprehensive [place]. 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
== END 2022-10-01 14:38 | disposition home or self-care (01) ==
PROVIDERS: PCP Internal Medicine; Visit Provider Internal Medicine
DX: Z00.00 Encounter for general adult medical examination without abnormal findings (principal)
CPT/HCPCS: 99396

== ENCOUNTER 2022-10-15 09:57 | Outpatient (REF) | payer OTHER, SELFPAY ==
[2022-10-15 14:08] LABS: Alanine Aminotransferase 20 U/L (0-31); Albumin Level 4.7 g/dL (3.5-5.0); Alkaline Phosphatase 101 U/L (39-117); Anion Gap 13 (12-20); Aspartate Amino Transferase 24 U/L (5-31); Bilirubin Total 0.4 mg/dL (0.0-1.0); Blood Urea Nitrogen 7 mg/dL (9-16); Calcium 10.2 mg/dL (8.4-10.2); Carbon Dioxide 28 mmol/L (22-29); Chloride 107 mmol/L (96-108); Cholesterol 200 mg/dL (<200); Estimated Glomerular Filt Rate > 60; Glucose Fasting 104 mg/dL (60-99); HDL Cholesterol 73 mg/dL (>40); LDL Cholesterol Calculated 110 mg/dL (<100); Potassium 4.1 mmol/L (3.3-5.1); Sodium 144 mmol/L (135-145); Total Protein 7.6 g/dL (6.5-8.0); Triglycerides 86 mg/dL (<150)
[2022-10-15 14:12] LABS: Vitamin D 25-OH Total > 154.2 ng/mL (>30)
== END 2022-10-15 09:58 | disposition home or self-care (01) ==
LOC: HO.HMGCLDS 09:57
PROVIDERS: PCP Internal Medicine; Visit Provider Internal Medicine
DX: E55.9 Vitamin D deficiency, unspecified (principal); E78.5 Hyperlipidemia, unspecified; R26.9 Unspecified abnormalities of gait and mobility; J43.9 Emphysema, unspecified
CPT/HCPCS: 36415; 80053; 80061; 82306

== ENCOUNTER 2022-11-22 08:47 | Outpatient (REF) | payer OTHER, SELFPAY ==
--- NOTE | ~2022-11-22 | FL_ITS ---
EXAMINATION: FL BARIUM SWALLOW CLINICAL INFORMATION: Gastroesophageal reflux disease without esophagitis COMPARISON: None available. TECHNIQUE: Barium swallow examination is performed using fluoroscopic evaluation in addition to multiple fluoroscopic spot views. The patient is imaged both upright and prone and using both thick and thin sulfate along with effervescent granules. Barium tablet was also administered Fluoroscopy time: 40 seconds DAP: 3966 microGycm2 Images: 22 FINDINGS: The swallowing mechanism is normal. No aspiration or penetration is seen. Esophageal motility is normal. No hernia, reflux, mass or stricture is seen. Barium tablet passed freely into the stomach. FL/FL barium swallow IMPRESSION: Normal barium swallow.
== END 2022-11-22 08:48 | disposition home or self-care (01) ==
LOC: HO.XRAY 08:47
PROVIDERS: PCP Internal Medicine; Visit Provider Hospitalist
DX: K21.9 Gastro-esophageal reflux disease without esophagitis (principal)
CPT/HCPCS: 74220

== ENCOUNTER → 2022-11-22 08:51 | Outpatient (BNV) | payer OTHER, SELFPAY | PROVIDERS: PCP Internal Medicine; Visit Provider Radiology Diagnostic Radiology | DX: K21.9 Gastro-esophageal reflux disease without esophagitis (principal) | CPT/HCPCS: 74221 ==

== ENCOUNTER 2022-12-05 12:19 | Emergency (ER) | payer OTHER, SELFPAY ==
[2022-12-05 12:27] VITALS: BP 200/100; PULSE 78; O2SAT 100
[2022-12-05 12:33] VITALS: BP 154/99; PULSE 77; RESP 19; TEMP 36.6; O2SAT 98; BMI 25.7
--- NOTE | 2022-12-05 12:35 | ECG_ITS ---
Test Reason : CHEST TIGHTNESS Blood Pressure : / mmHG Vent. Rate : 065 BPM Atrial Rate : 065 BPM P-R Int : 160 ms QRS Dur : 074 ms QT Int : 416 ms P-R-T Axes : 052 -50 027 degrees QTc Int : 432 ms Normal sinus rhythm Left anterior fascicular block Inferior infarct (cited on or before 05-DEC-2022) Abnormal ECG When compared with ECG of 17-JAN-2021 11:15, Vent. rate has decreased BY 33 BPM Questionable change in initial forces of Inferior leads Referred By: Cedrick Arteaga Electronically Signed By:NAREN HIGHTOWER MD
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
[2022-12-05 13:07] LABS: MANUAL DIFF FLAG NO
[2022-12-05 13:08] LABS: Basophils Absolute Auto 0.1 X10*3/uL (0.0-0.2); Basophils Percent Auto 1.4 % (0-2); Eosinophils Absolute Auto 0.1 X10*3/uL (0.0-0.4); Eosinophils Percent Auto 1.2 % (0-4); Hematocrit 40.5 % (37.0-47.0); Hemoglobin 13.5 g/dl (12.0-16.0); Imm Gran Abs Auto 0.02 X10*3/uL (0.00-0.03); Imm Gran Pct Auto 0.4 % (0.0-0.4); Lymphocytes Absolute Auto 1.5 X10*3/uL (1.2-4.9); Lymphocytes Percent Auto 31.9 % (20-40); Mean Corpuscular HGB Conc 33.3 g/dl (31.0-35.0); Mean Corpuscular Hemoglobin 31.9 pg (27.0-33.0); Mean Corpuscular Volume 95.7 fL (80.0-98.0); Mean Platelet Volume 9.9 fL (9.4-12.3); Monocytes Absolute Auto 0.3 X10*3/uL (0.1-1.2); Monocytes Percent Auto 5.8 % (2-11); Neutrophils Absolute Auto 2.9 x10*3/uL (2.0-8.3); Neutrophils Percent Auto 59.3 % (45-73); Platelet Count 229 X10*3/uL (160-400); Red Blood Count 4.23 X10*6/uL (4.20-5.50); Red Cell Distribution Width 11.9 % (11.0-16.0); White Blood Count 4.8 X10*3/uL (4.8-10.8)
[2022-12-05 13:33] LABS: Alanine Aminotransferase 12 U/L (0-31); Albumin Level 4.8 g/dL (3.5-5.0); Alkaline Phosphatase 89 U/L (39-117); Anion Gap 14 (12-20); Aspartate Amino Transferase 19 U/L (5-31); Bilirubin Total 0.4 mg/dL (0.0-1.0); Blood Urea Nitrogen 6 mg/dL (9-16); Carbon Dioxide 26 mmol/L (22-29); Chloride 109 mmol/L (96-108); Estimated Glomerular Filt Rate > 60; Glucose Random 99 mg/dL (60-115); Lipase 15 U/L (8-78); Potassium 3.8 mmol/L (3.3-5.1); Sodium 145 mmol/L (135-145); Total Protein 7.5 g/dL (6.5-8.0)
[2022-12-05 15:43] VITALS: BP 155/74; PULSE 84; RESP 16; O2SAT 95
[2022-12-05 17:55] VITALS: BP 160/96; PULSE 70; RESP 16; O2SAT 100
== END 2022-12-05 18:16 | disposition home or self-care (01) ==
PROVIDERS: Physician Assistant; Emergency Provider Emergency Medicine; PCP Internal Medicine
DX: I10 Essential (primary) hypertension (principal); E78.5 Hyperlipidemia, unspecified; F17.210 Nicotine dependence, cigarettes, uncomplicated; Z79.82 Long term (current) use of aspirin; Z79.899 Other long term (current) drug therapy
CPT/HCPCS: 36415; 80053; 83690; 85025; 93005; 99283

== ENCOUNTER 2022-12-13 10:02 | Outpatient (AMB) | payer OTHER, SELFPAY ==
[2022-12-13 10:06] VITALS: BP 142/96; PULSE 88; O2SAT 100; BMI 26.8
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
== END 2022-12-13 10:41 | disposition home or self-care (01) ==
PROVIDERS: PCP Internal Medicine; Visit Provider Nurse Practitioner Family
DX: I10 Essential (primary) hypertension (principal)
CPT/HCPCS: 99213

== ENCOUNTER 2023-01-14 08:13 | Outpatient (AMB) | payer OTHER, SELFPAY ==
[2023-01-14 08:29] VITALS: BP 128/76; PULSE 71; O2SAT 98; BMI 25.1
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
== END 2023-01-14 08:51 | disposition home or self-care (01) ==
PROVIDERS: PCP Internal Medicine; Visit Provider Hospitalist
DX: R91.8 Other nonspecific abnormal finding of lung field (principal); J43.2 Centrilobular emphysema; F17.200 Nicotine dependence, unspecified, uncomplicated; J43.9 Emphysema, unspecified
CPT/HCPCS: 99214

== ENCOUNTER → 2023-01-14 08:13 | Outpatient (BNVA) | payer OTHER, SELFPAY | PROVIDERS: PCP Internal Medicine; Visit Provider Hospitalist | DX: Z23 Encounter for immunization (principal); J43.2 Centrilobular emphysema; R91.8 Other nonspecific abnormal finding of lung field; F17.210 Nicotine dependence, cigarettes, uncomplicated | CPT/HCPCS: 90471; 90686; 99212 ==

== ENCOUNTER 2023-03-04 09:00 | Outpatient (RCR) | payer MEDICARE, OTHER, SELFPAY ==
--- NOTE | 2023-01-21 12:47 | MHC.PT.EP ---
[facility] Office [place] Office [place] Office [address] Rowan Vann [address] [phone] F: [phone] F: [phone] F: [phone] F: [phone] Physical Therapy Plan of Care Date of Evaluation: 01/21/23 Date of Surgery: n/a Diagnosis: gait and mobility abnormalities Assessment: Patient is a 62 year old male presenting to PT with complaints of abnormalities of gait and balance. Pt reports onset began about 1 year ago due to insidious onset with progressive worsening. She presents today with impairments in balance, gait mechanics, LE strength. Pt's current occupation is none, with baseline physical activities including caring for her mom, ADLs, ambulating, stair negotiation. Pt expresses jail goal of reducing falls, and is motivated to work towards this in PT. Clinical presentation today is most consistent with signs and sx associated with gait and mobility abnormalities and pt will benefit from skilled PT 1 week x 6 weeks to address the following problems and impairments noted upon evaluation: balance, gait mechanics, LE strength. These problems limit the patient with the following functional activities: caring for her mom, ADLs, ambulating, stair negotiation. The prescribed treatment plan of care is medically necessary. Co-morbidities of emphysema, hx lumbar and cervical fusion, hx TIA were identified and taken into considerations of plan of care. Pt was educated on HEP, role of PT, prognosis, POC. Frequency and Duration: The patient will be seen 1 x 6 weeks Short Term Goals: Pt will demonstrate compliance with getting a RW in 3 weeks for improved safety. Pt will demonstrate improved safety with STS by reaching for the chair with her hands in 3 weeks. Pt will demonstrate improved LE MMT strength by 1/3 grade in 3 weeks. Custodial Goals: Pt will demonstrate improved LEFI score by 9 points in 6 weeks for improved functional mobility. Pt will demonstrate improved DGI score in 6 weeks for decreased risk of falls. Treatment Plan: Modalities to reduce pain, spasms and effusion. Manual therapy to restore motion and function. Therapeutic exercise to improve strength and flexibility. Neuromuscular re-education for posture and balance. Therapeutic activities to return to functional activities of daily living. Electronically signed by: Krystina Esposito, PT, DPT, ATC Please sign and return to therapist. Thank you for your referral.
--- NOTE | 2023-03-04 09:55 | MHC.PT.DC ---
[facility] [place] Office [place] Office [place] Office [address] Rowan Vann [address] [phone] F: [phone] F: [phone] F: [phone] F: [phone] Physical Therapy Discharge Report Diagnosis: gait and mobility abnormalities Date of Surgery: n/a Date of Evaluation: 01/21/23 Date of Discharge: 03/04/23 Treatments to Date: 7 Cancellations to Date: 0 No Shows to Date: 0 Discharge Status: Recommend MD Follow-up Discharge Summary: 03/04/2023: Pt has unfortunately made little to no progress since start of PT. She reports she feels she is getting worse everyday. She is having daily falls. She is more stable with the walker but unfortunately this is not stopping her daily falls. She demonstrates foot drop primarily on R but also at times on the L too. I have encouraged her on multiple occasions to see a neurologist but it seems she has been unsuccessful in getting scheduled. At this time max benefits of PT have been provided and skilled PT is not appropriate as she is not progressing. I again highly encourage her to see a neurologist for further imaging and evaluation. Electronically signed by: Krystina Esposito, PT, DPT, ATC Please sign and return to therapist. Thank you for your referral.
== END 2023-03-04 09:56 | disposition home or self-care (01) ==
LOC: HO.PTCHIC 09:00
PROVIDERS: PCP Internal Medicine; Visit Provider Internal Medicine
DX: M54.16 Radiculopathy, lumbar region (principal); R26.89 Other abnormalities of gait and mobility
CPT/HCPCS: 97110; 97112; 97116; 97162

== ENCOUNTER 2023-03-24 09:17 | Outpatient (REF) | payer MEDICARE, OTHER, SELFPAY ==
[2023-03-24 10:14] LABS: Influenza A PCR NEGATIVE (Negative); Influenza B PCR NEGATIVE (Negative); Resp Syncy Virus RNA Qual PCR NEGATIVE (Negative); SARS COV2 PCR INHOUSE POSITIVE (Negative)
== END 2023-03-24 09:18 | disposition home or self-care (01) ==
LOC: HO.LAB 09:17
PROVIDERS: PCP Internal Medicine; Visit Provider Internal Medicine
DX: R09.89 Other specified symptoms and signs involving the circulatory and respiratory systems (principal); Z11.52 Encounter for screening for COVID-19; Z20.828 Contact with and (suspected) exposure to other viral communicable diseases
CPT/HCPCS: 0241U

== ENCOUNTER 2023-04-01 09:47 | Outpatient (AMB) | payer MEDICARE, OTHER, SELFPAY ==
[2023-04-01 09:53] VITALS: BP 120/82; BMI 25.2
--- NOTE | 2023-04-01 09:53 | A.OFFPC_ITS ---
Vital Signs 04/01/23 09:53 Height 5 ft 4 in Weight 147 lb BMI 25.2 BP 120/82 Blood Pressure Location Lt brachial Position Sitting Intake Visit Reasons: sacular aneurysm, esophageal stricture Intake Note: Patient here for a follow up sacular aneurysm, esophageal stricture, covid Boarding Room Fixer Required: No Accompanied by: Self / Same As Patient Allergies erythromycin base Allergy (Intermediate, Verified 04/01/23 10:12) Shortness of Breath quetiapine [From Seroquel] Allergy (Intermediate, Verified 04/01/23 10:12) Tremors, issue with eye pressure, Increased SI trazodone [TRAZODONE] Allergy (Mild, Verified 04/01/23 10:12) Difficulty breathing, shortness of breath Medication List - Last Reconciled 04/01/23 by Radha Gee MD acetaminophen 650 mg PO Q4H PRN aspirin (Adult Aspirin Regimen) 81 mg PO DAILY clonazepam 0.5 mg PO BID PRN duloxetine 30 mg PO DAILY fluocinolone acetonide oil 0.01% (DermOtic Oil) 5 drps otic (ear) left BID 7 days fluticasone propionate 50 mcg/actuation 2 sprays intranasal DAILY 30 days gabapentin 100 mg PO BEDTIME gabapentin 800 mg PO TID lisinopril 10 mg PO DAILY rosuvastatin 5 mg PO BEDTIME 90 days triamcinolone acetonide 0.1% 1 appl topical DAILY 30 days Ventolin HFA 90 mcg/actuation (albuterol sulfate) 2 inhalations inhalation Q6H PRN 30 days NS Tobacco use date assessed: 04/01/23 Fall risk assessment: 2 + Falls in past year Last assessed Fall Risk: 04/01/23 Dental Screening Dental Screen Date: 04/01/23 Did you have a dental visit in the last 12 months?: No Did you have a dental problem in the last 6 months where you did not have access to dental care?: No Was dental information given to patient?: Patient has dentist HPI HPI Comments History of Present Illness Details This is a 63-year-old female with hypertension, dyslipidemia, emphysema and mild major depression that complains of dysphagia and has history of esophageal stricture. She would like to be referred to Gastroenterology for possible endoscopy to fix this problem. Had a barium swallow recently that was normal. She had COVID a week ago and still feel short of breath but no cough, fever or congestion. Has a hard time taking a deep breath and I will order a chest x-ray. Lungs are clear. Blood pressure stable. Cholesterol well controlled with statins. On duloxetine for her depression. Has brain aneurysm and will have surgery next month at [facility]. Walks with a walker for gait stability. [facility] Medical History (Updated 04/01/23 @ 12:02 by Radha Gee MD) Gait disorder Tobacco dependence Emphysema lung UTI (urinary tract infection) Leg weakness Loss of balance Physical exam Left ear pain Mild recurrent major depression Polyarthralgia Daytime sleepiness Leukopenia De Quervain's disease (tenosynovitis) Anxiety Weight gain Dyslipidemia WILL (obstructive sleep apnea) Postlaminectomy syndrome, cervical Chronic pain syndrome Disc degeneration, lumbar Spondylosis without myelopathy or radiculopathy, lumbar region Surgical History History of back surgery Status post lumbar spine surgery for decompression of spinal cord History of fusion of cervical spine History of carpal tunnel release Family History Father Emphysema of lung Mother Stroke Hypertension Diabetes Brother Bladder cancer Son No problems noted. Daughter No problems noted. 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 1. Little interest or pleasure in doing things: several days 2. Feeling down, depressed, or hopeless: several days 3. Trouble falling or staying asleep, or sleeping too much: more than half the days 4. Feeling tired or having little energy: more than half the days 5. Poor appetite or overeating: nearly every day 6. Feeling bad about yourself - or that you are a failure or have let yourself or your family down: several days 7. Trouble concentrating on things, such as reading the newspaper or watching television: not at all 8. Moving or speaking so slowly that other people could have noticed. Or the opposite - being so fidgety or restless that you have been moving around a lot more than usual: not at all 9. Thoughts that you would be better off or of hurting yourself in some way: not at all Total score: 10 Depression Screening Interpretation: Positive Depression Screening Follow-up: Existing condition Depression Screening Done: Yes 35300 - PHQ-9 Billing: Yes Source: Developed by Drs. Dinesh Dalton, Angy Pickard, Arcadio Luis and colleagues, with an educational tad from [employer]. Thrive Questionnaire Date Thrive assessed: 04/01/23 I am a: Patient What is your living situation today?: I have a steady place to live Within the past 12 months, did the food you bought not last and you didn't have the money to get more?: Never true Within the past 12 months, did you worry whether your food would run out before you got money to buy more?: Never true Do you have trouble paying for medicines?: No Do you have trouble getting transportation to medical appointments?: No Do you have trouble paying your heating and electricity bill?: No Do you have trouble taking care of your child, family member or friend?: No Do you have trouble with day-to-day activities such as bathing, preparing meals, shopping, managing finances, etc.?: No Are you currently unemployed and looking for a job?: No Are you interested in more education?: No Please select the resources that you would like help with: None THRIVE Score: 0 AUDIT C Alcohol Use Questionnaire (AUDIT-C) 1. How often do you have a drink containing alcohol?: Never Total Score: 0 STEPHANIE-7 AMB Questionnaire STEPHANIE-7 Date STEPHANIE - 7 assessed: 04/01/23 Feeling nervous, anxious, or on edge: 3 = Nearly every day Not being able to stop or control worryin = Several days Worrying too much about different things: 1 = Several days Trouble relaxin = Nearly every day Being so restless that it is hard to sit still: 1 = Several days Becoming easily annoyed or irritable: 0 = Not at all Feeling afraid as if something awful might happen: 1 = Several days Total STEPHANIE-7 score (0-4 normal; 5-9 mild; 10-14 moderate; 15-21 severe): 10 Source: Developed by Drs. Dinesh Dalton, Angy Pickard, Arcadio Luis and colleagues, with an educational tad from [employer]. STEPHANIE-7 Assessment Billing STEPHANIE-7 Assessment Tool: STEPHANIE-7 Assessment 20083 Review of Systems Const All systems reviewed & are unremarkable except as noted in HPI and below Eyes Reports no additional complaints, Denies change in vision and Denies other visual disturbances Card Denies chest pain at rest, Denies chest pain with activity, Denies edema, Denies irregular heart rhythm, Denies claudication, Denies dyspnea, Denies dyspnea on exertion, Denies orthopnea, Denies paroxysmal nocturnal dyspnea and Denies slow heart rate Resp Denies cough, Denies dyspnea and Denies dyspnea on exertion GI Denies abdominal pain, Denies change in bowel habits, Denies excessive flatus, Denies nausea and Denies vomiting Denies urinary incontinence, Denies urinary hesitancy and Denies urinary urgency Musc Denies abnormal gait, Denies atrophy, Denies deformity and Denies limited range of motion Skin/Breast Denies bleeding lesions, Denies changing lesions and Denies rash Neuro Denies abnormal gait and Denies lack of coordination Physical exam (Primary Care) Vital Signs: Last Vital Signs BP 120/82 04/01/23 09:53 BMI result Body Mass Index 25.2 Tobacco/Smoking Status: Tobacco use Status Tobacco use date assessed 04/01/23 04/01/23 10:00 Patient Tobacco Use Status Former Tobacco user 04/01/23 10:00 Tobacco use type Cigarette 04/01/23 09:56 e-Cigarette/Vaping Use Never Used 04/01/23 09:56 PHQ-9: PHQ-9 Score PHQ-9: Total score 10 04/01/23 10:55 Depression Screening Interpretation: Positive Depression Screening Follow-up: Existing condition Thrive Assessment: Date of Thrive Assessment Date Thrive assessed 04/01/23 04/01/23 10:07 Const Limitations: ambulation with walker Eyes General: appearance normal, both eyes and all related structures Eyelids: Yes eyelids normal Conjunctivae: conjunctivae normal Neck Neck: Yes normal visual inspection and Yes supple Resp Effort & Inspection: normal respiratory effort Auscultation: clear to auscultation bilaterally Cardio Jugular venous distension: no JVD Rate: regular rate Rhythm: regular rhythm Heart sounds: S1 normal heart sound present and S2 normal heart sound present Extrem General: Yes full ROM Assessment and Plan Assessment & Plan (1) Mild recurrent major depression: Code(s): F33.0 - Major depressive disorder, recurrent, mild Plan: Continue duloxetine. (2) Dyslipidemia: Code(s): E78.5 - Hyperlipidemia, unspecified Plan: Continue statins. (3) Emphysema lung: Code(s): J43.9 - Emphysema, unspecified Qualifiers: Emphysema type: centrilobular Qualified Code(s): J43.2 - Centrilobular emphysema Plan: Continue rescue inhaler as needed. (4) Essential hypertension: Code(s): I10 - Essential (primary) hypertension Plan: Continue lisinopril. Blood pressure goal is equal or less than 130/80. (5) Dysphagia: Code(s): R13.10 - Dysphagia, unspecified Plan: Refer to Gastroenterology for further evaluation and management. Orders: Orders XR chest 2V Today R06.00 - Dyspnea, unspecified Referrals Gastroenterology Referral R13.10 - Dysphagia, unspecified, Z87.19 - Personal history of other diseases of the digestive system Coding Level of Care Code Est Pt Level 4 (04865) Diagnoses Mild recurrent major depression F33.0 Dyslipidemia E78.5 Centrilobular emphysema J43.2 Emphysema type: centrilobular Essential hypertension I10 Dysphagia R13.10 Additional Codes STEPHANIE-7 Assessment Billing - STEPHANIE-7 Assessment Tool: STEPHANIE-7 Assessment 79209 ([id number]) Time Spent (min) 24
== END 2023-04-01 10:22 | disposition home or self-care (01) ==
PROVIDERS: PCP Internal Medicine; Visit Provider Internal Medicine
DX: E78.5 Hyperlipidemia, unspecified (principal); F33.0 Major depressive disorder, recurrent, mild; J43.2 Centrilobular emphysema; I10 Essential (primary) hypertension; R13.10 Dysphagia, unspecified
CPT/HCPCS: 99214

== ENCOUNTER 2023-04-01 10:43 | Outpatient (REF) | payer MEDICARE, OTHER, SELFPAY ==
--- NOTE | ~2023-04-01 | XR_ITS ---
EXAMINATION: XR CHEST CLINICAL INFORMATION: Dyspnea. COMPARISON: Chest CT 07/18/2021. TECHNIQUE: 2 views of the chest were obtained. FINDINGS: The lungs are expanded and clear. Heart size and pulmonary vascularity is normal. There is moderate dextroscoliosis dorsal spine. XR/XR chest 2V IMPRESSION: No acute cardiopulmonary process seen.
== END 2023-04-01 10:44 | disposition home or self-care (01) ==
LOC: HO.HMGCX 10:43
PROVIDERS: PCP Internal Medicine; Visit Provider Internal Medicine
DX: R06.00 Dyspnea, unspecified (principal)
CPT/HCPCS: 71046

== ENCOUNTER 2023-04-23 10:34 | Outpatient (REF) | payer MEDICARE, OTHER, SELFPAY ==
--- NOTE | ~2023-04-23 | MR_ITS ---
EXAMINATION: MR LUMBAR SPINE WITHOUT AND WITH CONTRAST CLINICAL INFORMATION: Lumbar radiculopathy. COMPARISON: Lumbar spine MRI from 08/13/2019. TECHNIQUE: MRI of the lumbar spine was obtained using routine sequences without and following the administration of 6.5 mL of Gadavist intravenous contrast. FINDINGS: Normal anatomic alignment. Moderate degenerative disc disease at L1-L2 and L4-L5. Mild degenerative disc disease at T12-L1, L2-L3, and L3-L4. Associated mixed Modic type discogenic and plate changes including mild Modic type I discogenic edema from L1-L4. No additional suspicious marrow edema. The vertebral body heights are largely maintained. The conus medullaris terminates at the level of L2. The distal spinal cord is normal in appearance. No abnormal contrast enhancement. Laminotomy changes at L4-L5. No additional significant abnormalities of the paraspinal musculature. There is a nonenhancing 1 cm cyst in the right kidney partially incidental Limited evaluation of the intra-abdominal structures without significant abnormalities. The abdominal aorta is of normal contour and caliber. AXIAL SPINAL LEVELS: T12-L1: Shallow diffuse disc bulge. There is moderate left worse than right facet joint arthropathy. There is no neural foraminal stenosis. There is no spinal canal stenosis. L1-L2: Mild diffuse disc bulge with superimposed right foraminal disc protrusion. There is moderate right worse than left facet joint arthropathy. There is moderate right and mild left neural foraminal stenosis. There is stenosis of the right-sided radicular zone with no overt spinal canal stenosis centrally. L2-L3: Mild diffuse disc bulge. There is moderate bilateral facet joint arthropathy. There is mild bilateral neural foraminal stenosis. There is narrowing of the subarticular zones with no overt spinal canal stenosis centrally. L3-L4: Moderate diffuse disc bulge. There is moderate left worse than right facet joint arthropathy. There is moderate bilateral neural foraminal stenosis. There is stenosis of the subarticular zones with no overt spinal canal stenosis centrally. L4-L5: Moderate diffuse disc bulge. There is moderate to severe bilateral facet joint arthropathy. There is moderate to severe left and moderate right neural foraminal stenosis. There is stenosis of the subarticular zones with no overt spinal canal stenosis centrally. L5-S1: Shallow diffuse disc bulge. There is moderate left worse than right facet joint arthropathy. There is mild to moderate bilateral neural foraminal stenosis. There is no spinal canal stenosis. MR/MR lumbar spine wo/w con IMPRESSION: Moderate multilevel degenerative spondyloarthropathy of the lumbar spine as described in detail above. Most notably, there are narrowing/stenoses of the subarticular zones from L1-L5. Moderate neural foraminal stenoses from L1-S1. No overt spinal canal stenosis centrally.
[2023-04-23] MEDS: gadobutroL 7.5 ML VIAL IVPUSH (12:00)
== END 2023-04-23 10:35 | disposition home or self-care (01) ==
LOC: HO.MRI 10:34
PROVIDERS: PCP Internal Medicine; Visit Provider Internal Medicine
DX: M54.16 Radiculopathy, lumbar region (principal)
CPT/HCPCS: 72158; A9585

== ENCOUNTER 2023-05-15 08:25 | Outpatient (AMB) | payer MEDICARE, OTHER, SELFPAY ==
--- NOTE | 2023-05-15 08:29 | A.OFFVIS_ITS ---
Intake Vital Signs 05/15/23 08:38 Height 5 ft 4 in Weight 148 lb BMI 25.4 BP 120/70 Blood Pressure Location Rt brachial Position Sitting Pulse 66 Intake Visit Reasons: Dysphagia, unspecified Intake Note: New patient presents in office today for dysphagia. CC: Patient reports that she last had an EGD with dilation on 2016 and felt a huge improvement on her swallowing after procedure. She states that when she swallows she can feel her pills going down and sometimes chokes with foods for example noah rice . She states that she was told she would need dilation done every 3 years. She sates sometimes if she bends over after eating her food comes up. She also reports having back and neck issues and having an appt with a spine doctor coming up. Consumer Loan Officer Required: No Accompanied by: Self / Same As Patient Allergies erythromycin base Allergy (Intermediate, Verified 05/15/23 08:56) Shortness of Breath quetiapine [From Seroquel] Allergy (Intermediate, Verified 05/15/23 08:56) Tremors, issue with eye pressure, Increased SI trazodone [TRAZODONE] Allergy (Mild, Verified 05/15/23 08:56) Difficulty breathing, shortness of breath HPI Dysphagia, unspecified HPI Details 63-year-old female here for initial eval uation of dysphagia. She is referred by Rahda Schultz of [facility] primary care. PMX WILL - sleep study negative COPD High cholesterol Hypertension Smoker Allergic rhinitis Carotid aneurysm Depression/insomnia/anxiety Degenerative disc disease of the cervical spine with chronic pain Post-laminectomy syndrome-cervical Lumbar spondylosis De Quervain's tenosynovitis/polyarthralgias Gait disorder History of esophageal stricture * SURGICAL HISTORY Lumbar spine decompression surgery Cervical spinal fusion Right carpal tunnel release * ALLERGIES Erythromycin - sleepy Trazodone - diff breathing quetiapine - worse anxiety * Phase [employer] LABS: none sinee 11/2022 BARIUM SWALLOW 11/22/22 FINDINGS: The swallowing mechanism is normal. No aspiration or penetration is seen. Esophageal motility is normal. No hernia, reflux, mass or stricture is seen. Barium tablet passed freely into the stomach. FL/FL barium swallow IMPRESSION: Normal barium swallow. TODAY'S VISIT She HAD AN EGD at [facility] in [place] and they found Schatskis ring and it was dilated. She did have dysphagia as the indication for the procedure, and this was successful. She now has odynophagia of pills and they feel like they get stuck at the GE jxn. She also has trouble swallowing things like rice that will stick higher in the throat that near chokes her. She was told she would need stretching again every 3 years. And she found that the dilation lasted about this time. She has never been on any consistent acid reducing medication. She does not experience any subjective consistent HB except occasionally. She does burp alot. She will have GERD when she bends over. ROV after EGD [facility] Medical History Gait disorder Tobacco dependence Emphysema lung UTI (urinary tract infection) Leg weakness Loss of balance Physical exam Left ear pain Mild recurrent major depression Polyarthralgia Daytime sleepiness Leukopenia De Quervain's disease (tenosynovitis) Anxiety Weight gain Dyslipidemia WILL (obstructive sleep apnea) Postlaminectomy syndrome, cervical Chronic pain syndrome Disc degeneration, lumbar Spondylosis without myelopathy or radiculopathy, lumbar region Surgical History History of esophagogastroduodenoscopy (EGD) H/O colonoscopy History of back surgery Status post lumbar spine surgery for decompression of spinal cord History of fusion of cervical spine History of carpal tunnel release Family History Father Emphysema of lung Mother Stroke Hypertension Diabetes Brother Bladder cancer Son No problems noted. Daughter No problems noted. 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 Cognitive needs: No Hearing needs: No Vision needs: Yes Review of Systems Const Denies fatigue, Denies fever(s), Denies night sweats, Denies poor appetite and Denies weight loss Eyes Details: glasses Reports requires corrective lenses ENT Reports Normal hearing present, Denies dental pain, Reports dysphagia, Denies hearing loss, Denies mouth pain, Denies odynophagia, Denies throat swelling, Denies tongue swelling and Reports other (Dentition adequate) Card Reports no additional complaints Resp Reports no additional complaints GI Details: Denies abdominal pain, Denies melena, Denies bloating, Denies hematochezia, Denies constipation, Denies GI cramping, Reports dysphagia, Denies excessive flatus, Denies early satiety, Denies heartburn, Denies diarrhea, Denies nausea, Denies odynophagia, Denies vomiting and Denies hematemesis Musc Reports abnormal gait Skin/Breast Denies pruritus, Denies lesions, Denies rash and Denies jaundice Neuro Reports Normal hearing present, Denies Abnormal speech present, Reports abnormal gait, Reports lack of coordination, Reports focal weakness and Reports par esthesias Psych Reports anxiety Endo Denies fatigue Aller/Immun Denies throat swelling and Denies tongue swelling Physical Exam Vital Signs: Last Vital Signs Pulse 66 05/15/23 08:38 BP 120/70 05/15/23 08:38 BMI result Body Mass Index 25.4 Const General: cooperative, no acute distress, well developed and well groomed Nutritional Appearance: average body habitus and well nourished Orientation/consciousness: oriented to person, oriented to place and oriented to time Limitations: No language barrier and ambulation with walker HEENT Head: Yes normocephalic and Yes atraumatic Eyes General: appearance normal, both eyes and all related structures Pupils: Equal, round and reactive pupils present Neck Neck: Yes normal visual inspection and Yes no lymphadenopathy Thyroid: Thyroid normal Resp Effort & Inspection: normal respiratory effort and able to speak in complete sentences Auscultation: clear to auscultation bilaterally Cardio Rate: regular rate Rhythm: regular rhythm Heart sounds: Normal, physiologic split S2 sound present Peripheral pulses: radial pulses present and posterior tibial pulses present GI Inspection: No distended, No Abdominal panniculus present and Yes obesity Palpation (GI): Soft to palpation, nontender, no guarding, not rigid and No hepatosplenomegaly present Percussion: Yes normal to percussion Auscultation: normal bowel sounds Rectal Exam - Female: deferred Skin General skin exam: no rashes or lesions noted, turgor normal, skin not dry, no jaundice, No spider nevi and no striae Rashes: no rashes Nails: normal Neuro General: oriented to person, oriented to place and oriented to time Cranial nerves: Yes Equal, round and reactive pupils present and Yes Normal hearing present Speech: No Abnormal speech present Extrem General: Yes normal to inspection, No clubbing, No cyanosis and No edema Psych Appearance: grossly normal and well kempt Mental Status: mental status grossly normal Speech and movement: Normal speech and movement present Affect: normal affect Attitude: cooperative Thought process: Normal thought process present and not confabulating Thought content: Normal thought content present Insight: Fair insight present (Psych) Judgement: Fair judgement present (Psych) Assessment & Plan Assessment & Plan (1) Dysphagia: Code(s): R13.10 - Dysphagia, unspecified Plan She HAD AN EGD at [facility] in [place] and they found Schatskis ring and it was dilated. She did have dysphagia as the indication for the procedure, and this was successful. She now has odynophagia of pills and they feel like they get stuck at the GE jxn. She also has trouble swallowing things like rice that will stick higher in the throat that near chokes her. She was told she would need stretching again every 3 years. And she found that the dilation lasted about this time. She has never been on any consistent acid reducing medication. She does not experience any subjective consistent HB except occasionally. She does burp alot. She will have GERD when she bends over. ROV after EGD Orders: Orders EGD with Hernandez - GI Use Only Today R13.10 - Dysphagia, unspecified Comprehensive Met. Panel Today R13.10 - Dysphagia, unspecified Complete Blood Count Auto Diff Today R13.10 - Dysphagia, unspecified Quality Reporting (2019) Adult ([facility] 138/04/17/68) Smoking risk assessment performed?: Yes Patient Tobacco Use Status: Former Tobacco user Coding Level of Care Code New Pt Level 3 (55192) Diagnoses Dysphagia R13.10
[2023-05-15 08:38] VITALS: BP 120/70; PULSE 66; BMI 25.4
== END 2023-05-15 10:01 | disposition home or self-care (01) ==
PROVIDERS: PCP Internal Medicine; Visit Provider Nurse Practitioner
DX: R13.10 Dysphagia, unspecified (principal)
CPT/HCPCS: 99203

== ENCOUNTER → 2023-05-15 08:25 | Outpatient (BNVA) | payer MEDICARE, OTHER, SELFPAY | PROVIDERS: PCP Internal Medicine; Visit Provider Nurse Practitioner | DX: R13.10 Dysphagia, unspecified (principal) | CPT/HCPCS: 99202 ==

== ENCOUNTER 2023-05-16 08:49 | Outpatient (AMB) | payer MEDICARE, OTHER, SELFPAY ==
--- NOTE | 2023-05-16 08:59 | HO.SPINEOV ---
Intake Intake Visit Reasons: radiculopathy, lumbar region Intake Note: Ms. Arguelles is here today c/o low back pain. Secretary Board Of Commissioners Required: No Allergies erythromycin base Allergy (Intermediate, Verified 05/15/23 08:56) Shortness of Breath quetiapine [From Seroquel] Allergy (Intermediate, Verified 05/15/23 08:56) Tremors, issue with eye pressure, Increased SI trazodone [TRAZODONE] Allergy (Mild, Verified 05/15/23 08:56) Difficulty breathing, shortness of breath Assessment & Plan Assessment & Plan (1) Cervical myelopathy: Code(s): G95.9 - Disease of spinal cord, unspecified Plan Mrs Arguelles known to us from our previous practice at [facility] where we did an L4-5 decompression in 2020. The patient reports that she also had history of anterior cervical fusion from C4-C7 with Dr. Jass Velasquez in 2014. She states that over the last year so she is noticing more numbness of her hands and trouble with her gait. She is a bit of a difficult historian, but tells me that she was in [place] at some point and when she came back to [place] that when she started to notice this worsening issues with her hand in her mobility. At this point if she is going any distant she will bring a walker because she has been falling a lot. On my exam she is demonstrating overt signs of myelopathy including hand weakness, diffuse hyperreflexia as well as proximal leg weakness in the iliopsoas. I went back and reviewed her notes from [facility], and Dr. Velasquez's intraoperative x-rays. She had a large plate placed from C4-C7 with cadaver bone graft. His notes at that time suggests that she had an ongoing myelopathy with cord signal change behind C5-6. The patient tells me that she recovered from surgery and was significantly better afterwards, so clearly this retail coverage merchandiser lead the last year has been something new and my suspicion is that she has adjacent segment disease. I will need a new cervical MRI to rule this out. I will see her back after the MRI is ordered. She did have a lumbar MRI done and this looks basically normal with no signs of nerve compression or any residual stenosis. Total amount of time spent in this visit was 20 minutes in discussion of symptoms, lumbar imaging results and subsequent plan of care eLnin Hendricksons MD,PhD [facility] Orders: Orders MR cervical spine wo con 1 Week G95.9 - Disease of spinal cord, unspecified Coding Level of Care Code Est Pt Level 3 (17968) Diagnoses Cervical myelopathy G95.9
== END 2023-05-16 09:16 | disposition home or self-care (01) ==
PROVIDERS: PCP Internal Medicine; Referring Provider Internal Medicine; Visit Provider Physician Assistant
DX: G95.9 Disease of spinal cord, unspecified (principal)
CPT/HCPCS: 99213

== ENCOUNTER → 2023-05-16 08:49 | Outpatient (BNVA) | payer MEDICARE, OTHER, SELFPAY | PROVIDERS: PCP Internal Medicine; Referring Provider Internal Medicine; Visit Provider Physician Assistant | DX: G95.9 Disease of spinal cord, unspecified (principal); M54.16 Radiculopathy, lumbar region | CPT/HCPCS: 99212 ==

== ENCOUNTER 2023-05-19 10:33 | Outpatient (REF) | payer MEDICARE, OTHER, SELFPAY ==
--- NOTE | ~2023-05-19 | MR_ITS ---
EXAMINATION: MR CERVICAL SPINE WITHOUT CONTRAST CLINICAL INFORMATION: Left-sided neck pain. Frequent falls. Pain radiating into arms. Numbness in fingers. Difficulty walking. COMPARISON: None. TECHNIQUE: Multiplanar, multisequential imaging of the cervical spine was performed without contrast. FINDINGS: VERTEBRAL BODIES AND PARASPINAL SOFT TISSUES: The patient is status post previous multilevel anterior cervical discectomies and fusion with hardware instrumentation at the C4-C5, C5-C6, and C6-C7 level. The marrow signal is within normal limits. There are no compression fractures. Mild leftward cervical spinal curvature noted. There is moderate disc space narrowing and endplate spurring with a mild retrosubluxation at the C3-C4 level. Moderate left-sided hypertrophic facet arthropathy visible at the C2-C3 and C3-C4 level. There is hypertrophic facet degeneration at the C7-T1 and T1-T2 levels as well. The paraspinal soft tissues are otherwise unremarkable. The vertebral artery flow voids are maintained. The imaged lung apices are grossly clear. CERVICOMEDULLARY JUNCTION AND VISUALIZED POSTERIOR FOSSA: The craniovertebral junction and imaged portions of the brain parenchyma appear normal. No syrinx is identified. There is T2 hyperintense signal change within the cord at the C3-C4 level which may reflect chronic myelomalacia and/or mild edema. At the C6-C7 level, there is T2 hyperintense signal abnormality within the cord which is suspected to represent chronic myelomalacia. SPINAL LEVELS: C2-C3: Small central disc protrusion with mild left-sided facet arthropathy. No central canal stenosis or foraminal narrowing. C3-C4: Retrosubluxation and broad-based disc-osteophyte complex with thickening of the ligamentum flavum and facet arthropathy resulting in severe central canal stenosis and effacement of CSF within the thecal sac. Zpurgcnm-ph-swjziw cord distortion with intramedullary signal change. Significant bilateral foraminal narrowing as well. Mild posterior endplate edema visible. C4-C5: Post-fusion changes with hardware instrumentation. No central canal stenosis or foraminal narrowing. C5-C6: Post-fusion changes and hardware instrumentation with endplate ridging. No central canal stenosis. Uqoz-kb-bktasyga foraminal narrowing. Mild T2 hyperintense signal change in the right lateral aspect of the cord which may reflect chronic myelomalacia. C6-C7: Post-fusion changes with hardware instrumentation. No central canal stenosis. Moderate bilateral foraminal encroachment due to osseous spurring. Intramedullary signal change from suspected chronic myelomalacia. C7-T1: Mild anterolisthesis and unroofing of the disc without central canal stenosis. Qirzlslr-cc-ioyygf facet arthropathy with significant bilateral foraminal encroachment. T1-T2: Mild anterolisthesis and shallow central disc protrusion with qgllmgkk-qi-olaxmn facet arthrosis resulting in edtd-ps-cwwjjawg foraminal narrowing with mild central canal stenosis. MR/MR cervical spine wo con IMPRESSION: 1. Status post previous multilevel anterior cervical discectomies and fusion with hardware instrumentation from the C4 through the C7 levels. Moderate bilateral foraminal narrowing and chronic myelomalacia suspected at the C6-C7 level. 2. Severe junctional central canal stenosis at the C3-C4 level with a retrosubluxation and broad-based disc-osteophyte complex resulting in moderate to severe cord distortion. Significant bilateral foraminal narrowing. Signal abnormality within the cord at this level may reflect chronic myelomalacia and/or edema. Additional mild posterior endplate edema. 3. Mild anterolisthesis and pauvgtht-mc-zrkgnk facet arthropathy at the C7-T1 level with significant foraminal encroachment. 4. Shallow central disc protrusion and frluqnze-ps-buahzn facet arthropathy at the T1-T2 level with mild central canal stenosis and hrgo-vu-xxjssffx foraminal narrowing.
== END 2023-05-19 10:34 | disposition home or self-care (01) ==
LOC: HO.MRI 10:33
PROVIDERS: PCP Internal Medicine; Visit Provider Physician Assistant
DX: G95.9 Disease of spinal cord, unspecified (principal)
CPT/HCPCS: 72141

== ENCOUNTER 2023-06-05 06:20 | Outpatient (REF) | payer MEDICARE, SELFPAY ==
[2023-06-05 10:27] LABS: Alanine Aminotransferase 10 U/L (0-31); Albumin Level 4.2 g/dL (3.5-5.0); Alkaline Phosphatase 99 U/L (39-117); Anion Gap 11 (12-20); Aspartate Amino Transferase 14 U/L (5-31); Bilirubin Total 0.4 mg/dL (0.0-1.0); Blood Urea Nitrogen 14 mg/dL (9-16); Calcium 9.5 mg/dL (8.4-10.2); Carbon Dioxide 30 mmol/L (22-29); Chloride 107 mmol/L (96-108); Estimated Glomerular Filt Rate > 60; Glucose Fasting 108 mg/dL (60-99); Potassium 4.6 mmol/L (3.3-5.1); Sodium 143 mmol/L (135-145); Total Protein 6.8 g/dL (6.5-8.0)
== END 2023-06-05 06:21 | disposition home or self-care (01) ==
LOC: HO.LAB 06:20
PROVIDERS: PCP Internal Medicine; Visit Provider Internal Medicine
DX: J43.9 Emphysema, unspecified (principal)
CPT/HCPCS: 36415; 80053

== ENCOUNTER 2023-06-09 12:19 | Outpatient (AMB) | payer MEDICARE, OTHER, SELFPAY ==
--- NOTE | 2023-06-09 12:26 | A.OFFPC_ITS ---
Vital Signs 06/09/23 12:27 Height 5 ft 4 in Weight 148 lb BMI 25.4 BP 118/82 Blood Pressure Location Lt brachial Position Sitting Intake Visit Reasons: C3-4 Cervical Spine Fusion 07/09/23. Dr. Clayton Fire Prevention Engineer Required: No Accompanied by: Self / Same As Patient Allergies erythromycin base Allergy (Intermediate, Verified 06/09/23 12:49) Shortness of Breath quetiapine [From Seroquel] Allergy (Intermediate, Verified 06/09/23 12:49) Tremors, issue with eye pressure, Increased SI trazodone [TRAZODONE] Allergy (Mild, Verified 06/09/23 12:49) Difficulty breathing, shortness of breath Medication List - Last Reconciled 06/09/23 by Radha Gee MD acetaminophen 650 mg PO Q4H PRN aspirin (Adult Aspirin Regimen) 81 mg PO DAILY clonazepam 0.5 mg PO BID PRN duloxetine 30 mg PO DAILY fluocinolone acetonide oil 0.01% (DermOtic Oil) 5 drps otic (ear) left BID 7 days fluticasone propionate 50 mcg/actuation 2 sprays intranasal DAILY 30 days gabapentin 800 mg PO TID gabapentin 100 mg PO TID lisinopril 10 mg PO DAILY rosuvastatin 5 mg PO BEDTIME 90 days triamcinolone acetonide 0.1% 1 appl topical DAILY 30 days Ventolin HFA 90 mcg/actuation (albuterol sulfate) 2 inhalations inhalation Q6H PRN 30 days NS Tobacco use date assessed: 04/01/23 Fall risk assessment: 2 + Falls in past year Last assessed Fall Risk: 06/09/23 Dental Screening Dental Screen Date: 04/01/23 HPI HPI Comments History of Present Illness Details This is a 63-year-old female with mild recurrent major depression, emphysema, hypertension and cervical myelopathy that comes today for preop evaluation for surgical repair of her cervical myelopathy scheduled for 07/09/2023. She denies any chest pain or dyspnea on exertion. Walks with a walker for gait stability due to loss of balance. Depression stable with Cymbalta. She use rescue inhaler few times a month for her emphysema and this is follow by pulmonology. Blood pressure stable with medications. Has 4-5 Mets of ADLs. EKG and labs are still pending for medical clearance. Has internal carotid artery aneurysm and will have echocardiogram to rule out intracardiac thrombus. [facility] Medical History (Updated 05/25/23 @ 09:37 by Radha Gee MD) Gait disorder Tobacco dependence Emphysema lung UTI (urinary tract infection) Leg weakness Loss of balance Physical exam Left ear pain Mild recurrent major depression Polyarthralgia Daytime sleepiness Leukopenia De Quervain's disease (tenosynovitis) Anxiety Weight gain Dyslipidemia WILL (obstructive sleep apnea) Postlaminectomy syndrome, cervical Chronic pain syndrome Disc degeneration, lumbar Spondylosis without myelopathy or radiculopathy, lumbar region Surgical History History of esophagogastroduodenoscopy (EGD) H/O colonoscopy History of back surgery Status post lumbar spine surgery for decompression of spinal cord History of fusion of cervical spine History of carpal tunnel release Family History Father Emphysema of lung Mother Stroke Hypertension Diabetes Brother Bladder cancer Son No problems noted. Daughter No problems noted. 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 Dinesh Dalton, Angy Pickard, Arcadio Luis and colleagues, with an educational tad from [employer]. Review of Systems Const All systems reviewed & are unremarkable except as noted in HPI and below Eyes Reports no additional complaints, Denies change in vision and Denies other visual disturbances Card Denies chest pain at rest, Denies chest pain with activity, Denies edema, Denies irregular heart rhythm, Denies claudication, Denies dyspnea, Denies dyspnea on exertion, Denies orthopnea, Denies paroxysmal nocturnal dyspnea and Denies slow heart rate Resp Denies cough, Denies dyspnea and Denies dyspnea on exertion Physical exam (Primary Care) Vital Signs: Last Vital Signs BP 118/82 06/09/23 12:27 BMI result Body Mass Index 25.4 Tobacco/Smoking Status: Tobacco use Status Tobacco use date assessed 04/01/23 06/09/23 12:33 Patient Tobacco Use Status Former Tobacco user 06/09/23 12:33 Tobacco use type Cigarette 06/09/23 12:33 e-Cigarette/Vaping Use Never Used 06/09/23 12:33 Thrive Assessment: Date of Thrive Assessment Date Thrive assessed 04/01/23 06/09/23 12:33 Const Limitations: ambulation with walker Resp Effort & Inspection: normal respiratory effort Auscultation: clear to auscultation bilaterally Cardio Jugular venous distension: no JVD Rate: regular rate Rhythm: regular rhythm Heart sounds: Murmur heart sound present GI Inspection: Yes normal to inspection Palpation (GI): Soft to palpation and nontender Auscultation: normal bowel sounds Assessment and Plan Assessment & Plan (1) Pre-op evaluation: Code(s): Z01.818 - Encounter for other preprocedural examination Plan: EKG and labs pending for medical clearance. (2) Cervical myelopathy: Code(s): G95.9 - Disease of spinal cord, unspecified Plan: EKG and labs pending for medical clearance for surgical repair. Follow-up with Neurosurgery. (3) Essential hypertension: Code(s): I10 - Essential (primary) hypertension Plan: Continue lisinopril. Blood pressure goal is equal or less than 130/80. (4) Emphysema lung: Code(s): J43.9 - Emphysema, unspecified Qualifiers: Emphysema type: centrilobular Qualified Code(s): J43.2 - Centrilobular emphysema Plan: Use rescue inhaler as needed. Follow-up with pulmonology. (5) Mild recurrent major depression: Code(s): F33.0 - Major depressive disorder, recurrent, mild Plan: Continue duloxetine. Orders: Orders CA echo transthoracic complete Today I67.1 - Cerebral aneurysm, nonruptured, R01.1 - Cardiac murmur, unspecified ECG 12 lead EKG Today Z01.818 - Encounter for other preprocedural examination Complete Blood Count Auto Diff Today G95.9 - Disease of spinal cord, unspecified Coding Level of Care Code Est Pt Level 4 (42237) Diagnoses Pre-op evaluation Z01.818 Cervical myelopathy G95.9 Essential hypertension I10 Centrilobular emphysema J43.2 Emphysema type: centrilobular Mild recurrent major depression F33.0 Time Spent (min) 22
[2023-06-09 12:27] VITALS: BP 118/82; BMI 25.4
== END 2023-06-09 13:07 | disposition home or self-care (01) ==
PROVIDERS: PCP Internal Medicine; Visit Provider Internal Medicine
DX: G95.9 Disease of spinal cord, unspecified (principal); J43.2 Centrilobular emphysema; F33.0 Major depressive disorder, recurrent, mild; Z01.818 Encounter for other preprocedural examination; I10 Essential (primary) hypertension
CPT/HCPCS: 99214

== ENCOUNTER → 2023-06-11 06:55 | Outpatient (REF) | payer MEDICARE, OTHER, SELFPAY ==
[2023-06-11 07:12] LABS: MANUAL DIFF FLAG NO
[2023-06-11 07:35] LABS: Basophils Absolute Auto 0.1 X10*3/uL (0.0-0.2); Basophils Percent Auto 0.9 % (0-2); Eosinophils Absolute Auto 0.2 X10*3/uL (0.0-0.4); Eosinophils Percent Auto 2.4 % (0-4); Hematocrit 40.4 % (37.0-47.0); Hemoglobin 13.5 g/dl (12.0-16.0); Imm Gran Abs Auto 0.03 X10*3/uL (0.00-0.03); Imm Gran Pct Auto 0.4 % (0.0-0.4); Lymphocytes Percent Auto 29.1 % (20-40); Mean Corpuscular HGB Conc 33.4 g/dl (31.0-35.0); Mean Corpuscular Hemoglobin 32.1 pg (27.0-33.0); Mean Platelet Volume 10.2 fL (9.4-12.3); Monocytes Absolute Auto 0.6 X10*3/uL (0.1-1.2); Monocytes Percent Auto 8.9 % (2-11); Neutrophils Absolute Auto 3.9 x10*3/uL (2.0-8.3); Neutrophils Percent Auto 58.3 % (45-73); Platelet Count 258 X10*3/uL (160-400); Red Blood Count 4.21 X10*6/uL (4.20-5.50); White Blood Count 6.7 X10*3/uL (4.8-10.8)
--- NOTE | 2023-06-11 07:42 | ECG_ITS ---
Test Reason : MURMUR Blood Pressure : / mmHG Vent. Rate : 068 BPM Atrial Rate : 068 BPM P-R Int : 170 ms QRS Dur : 066 ms QT Int : 398 ms P-R-T Axes : 012 -47 010 degrees QTc Int : 423 ms Normal sinus rhythm Left axis deviation Inferior infarct (cited on or before 05-DEC-2022) Abnormal ECG When compared with ECG of 05-DEC-2022 12:52, Minimal criteria for Anterior infarct are no longer Present Referred By: Radha Gee Electronically Signed By:THA CENTENO
--- NOTE | 2023-06-11 07:42 | CA_ITS ---
Transthoracic Echocardiogram Patient (Last, First, Middle): Kimberly Arguelles M Gender: Female Date of : 1960 Age: 63 Procedure Date: 06/11/2023 Procedure Type: Transthoracic Echocardiogram Location: OP Height: 162.56 cm Weight: 66.23 kg BSA: 1.71 m2 Heart Rate: bpm BP: 112 / 72 mmHg Senior Escrow Officer: TO Referring MD: Radha Gee MD Symptoms: I67.1 - Cerebral aneurysm, nonruptured Study Quality: Adequate, contrast ECG Rhythm: Sinus Conclusions: - The left ventricular systolic function is normal. The calculated ejection fraction is 64% by biplane method. - No obvious valvular pathology seen on this study. Findings Procedure Information Contrast agent, definity, is being given per protocol without apparent complications. Left Ventricle Normal left ventricular cavity size. There is normal left ventricular wall thickness. The left ventricular systolic function is normal. The calculated ejection fraction is 64% by biplane method. There is no evidence of regional wall motion abnormalities. Diastolic function is normal for age. LV peak GLS -21.8%. Right Ventricle Normal right ventricular cavity size and systolic function. Atria Both atria are normal in size. Aortic Valve There is a normal trileaflet aortic valve. There is no aortic valve stenosis. There is no aortic valve regurgitation. Mitral Valve The mitral valve appears normal. There is no mitral valve regurgitation. There is no mitral valve stenosis. Pulmonic Valve The pulmonic valve is likely normal. Tricuspid Valve Normal tricuspid valve structure. There is trace tricuspid valve regurgitation. Tricuspid regurgitation envelope is inadequate for calculation of right ventricular systolic pressure. Great Vessels The asc aorta is normal in size. Venous The inferior vena cava is normal in size and collapses greater than 50% with inspiration. Pericardium/Pleural There is no evidence of pericardial effusion. Prior Study Comparison No prior study available for comparison. Recommendations, Care & Conclusions No obvious valvular pathology seen on this study. Measurements 2D Linear Measurements IVSd: 0.97 0.6-0.9/0.6-1.0 cm LVIDd: 4.22 3.9-5.3/4.2-5.9 cm LVIDd Index: 2.47 2.4-3.2/2.2-3.1 cm/m2 LVIDs: 2.76 2.0-3.6 cm LVPWd: 0.71 0.7-1.1 cm LA Diam: 3.20 2.7-3.8/3.0-4.0 cm LAIDs Index: 1.87 1.5-2.3 cm/m2 LV Mass: 134.89 67-162/88-224 g LV Mass Index: 78.89 43-95/49-115 g/m2 LVOT Diam: 2.00 3.0+(-)1.3 cm 2D Systolic Function EF 4C: 65.80 >55% EF 2C: 62.00 >55% EF BiP: 64.30 >55% Mitral Valve MV Pk E: 0.96 MV PK A: 0.90 MV Decel Time: 178.00 E/A: 1.10 E'Lateral: 11.40 E'Medial: 8.70 E/E' Med: 11.00 E/E' Lat: 8.40 PHT: 52.00 MVA PHT: 4.23 Decel Imperial: 5.37 Aortic Valve AoV Pk Jasmeet: 1.25 AoV Mn Jasmeet: 0.93 AoV VTI: 0.29 AoV Pk Grad: 6.00 Aov Mn Grad: 4.00 SERGEY Cont.VTI: 3.26 LVOT LVOT Pk Jasmeet: 1.28 LVOT Mn Jasmeet: 0.73 LVOT VTI: 0.30 LVOT Pk Grad: 7.00 LVOT Mn Grad: 3.00 LVOT Diam: 2.00 LVOT Area: 3.14 Diastolic Function MV Pk E: 0.96 MV Pk A: 0.90 E/A: 1.10 E'Medial: 8.70 E/E' Med: 11.00 E' Laterial: 11.40 E/E' Lat: 8.40 Right Ventricle TAPSE (mm): 28.00 TVS' Jasmeet: 11.90 Tricuspid Valve RA Press: 3.00 Great Vessels Aorta Sinus of Valsalva: 3.18 2.0-3.5 cm Ao Asc: 3.20 2.1-3.4 cm Ao Arch: 3.00 Updated in Other Vendor System with Status of Final Sebastian Arroyo MD electronically signed on 06/12/2023 1:01:27 PM with status of Final
[2023-06-11 08:11] LABS: Alanine Aminotransferase 11 U/L (0-31); Albumin Level 4.5 g/dL (3.5-5.0); Alkaline Phosphatase 106 U/L (39-117); Anion Gap 12 (12-20); Aspartate Amino Transferase 17 U/L (5-31); Bilirubin Total 0.3 mg/dL (0.0-1.0); Blood Urea Nitrogen 14 mg/dL (9-16); Calcium 9.8 mg/dL (8.4-10.2); Carbon Dioxide 28 mmol/L (22-29); Chloride 105 mmol/L (96-108); Estimated Glomerular Filt Rate > 60; Glucose Random 105 mg/dL (60-115); Potassium 4.3 mmol/L (3.3-5.1); Sodium 141 mmol/L (135-145); Total Protein 7.2 g/dL (6.5-8.0)
== END ==
LOC: HO.CARD 06:55
PROVIDERS: Nurse Practitioner; PCP Internal Medicine; Visit Provider Internal Medicine
DX: Z01.818 Encounter for other preprocedural examination (principal); R13.10 Dysphagia, unspecified; R01.1 Cardiac murmur, unspecified; I67.1 Cerebral aneurysm, nonruptured
CPT/HCPCS: 36415; 80053; 85025; 93005; 93306; 93356; Q9957

== ENCOUNTER → 2023-06-11 07:42 | Outpatient (BNV) | payer MEDICARE, MEDICAID, OTHER, SELFPAY | PROVIDERS: PCP Internal Medicine; Visit Provider Internal Medicine | DX: I67.89 Other cerebrovascular disease (principal) | CPT/HCPCS: 93010; 93306; 93356 ==

== ENCOUNTER 2023-07-09 06:57 | Day surgery (SDC) | payer MEDICARE, OTHER, MEDICAID, SELFPAY ==
[2023-06-26 13:59] VITALS: BP 104/59; PULSE 83; RESP 20; O2SAT 98; BMI 26.4
--- NOTE | 2023-06-26 14:14 | P.CONAN_ITS ---
Documented by User: Marcia Schroeder NP 07/07/23 14:36 HPI - Anesthesia Eval Consult details Narrative: 63yo F for Ant Cerv Discectomy w/ fusion PCP cleared Pulmo cleared No recent illness. Seasonal allergies tx'd with flonase No CP/SOB with minimal activity Previous cspine surgery Recent quit smoking. 05/2023 COPD. Ventolin ~ 1 x daily. Stable Following with [facility] neuro IR for a 0.3 cm saccular aneurysm projecting medially from the paraophthalmic segment of the left ICA. Proposed angiogram for further eval. Case reviewed with Dr Ballesteros. [facility] Active Problems Active Problems: All Active Problems Pre-op evaluation (Acute) Cervical myelopathy (Acute) Osteoarthritis of lumbar spine (Acute) Essential hypertension (Acute) History of esophageal stricture (Acute) Dysphagia (Acute) Dyspnea (Acute) Left wrist pain (Acute) Lumbar radiculopathy (Acute) Screening for cervical cancer (Acute) Tick bite (Acute) Aneurysm of internal carotid artery (Acute) Pulmonary nodules (Acute) Pulmonary nodule less than 6 cm determined by computed tomography of lung (Acute) UTI (urinary tract infection) (Acute) Physical exam (Acute) Cervicalgia (Acute) Internal carotid aneurysm (Acute) Current smoker (Acute) Pulmonary nodule (Acute) Right wrist pain (Acute) Allergic rhinitis (Acute) Tick bite of back (Acute) Leg cramps, sleep related (Acute) Insomnia (Acute) Encounter for annual physical exam (Acute) Gait disorder (Acute) Tobacco dependence (Acute) Emphysema lung (Acute) Leg weakness (Acute) Loss of balance (Acute) Left ear pain (Acute) Mild recurrent major depression (Acute) Polyarthralgia (Acute) Daytime sleepiness (Acute) Leukopenia (Acute) De Quervain's disease (tenosynovitis) (Acute) Anxiety (Acute) Weight gain (Acute) Dyslipidemia (Acute) WILL (obstructive sleep apnea) (Acute) Postlaminectomy syndrome, cervical (Acute) Chronic pain syndrome (Acute) Disc degeneration, lumbar (Acute) Spondylosis without myelopathy or radiculopathy, lumbar region (Acute) Past Medical History Medical History (Updated 06/26/23 @ 13:56 by Rekha Rossi RN) Schatzki's ring of distal esophagus TIA (transient ischemic attack) PTSD (post-traumatic stress disorder) HTN (hypertension) Internal carotid aneurysm Gait disorder Tobacco dependence Emphysema lung Leg weakness Loss of balance Left ear pain Mild recurrent major depression Polyarthralgia Daytime sleepiness Leukopenia De Quervain's disease (tenosynovitis) Anxiety Weight gain Dyslipidemia WILL (obstructive sleep apnea) Postlaminectomy syndrome, cervical Chronic pain syndrome Disc degeneration, lumbar Spondylosis without myelopathy or radiculopathy, lumbar region Family History Family History Father Emphysema of lung Mother Stroke Hypertension Diabetes Brother Bladder cancer Son No problems noted. Daughter No problems noted. Sister Breast cancer Family history of problems with anesthesia: No Surgical History Surgical History (Updated 06/26/23 @ 13:54 by Rekha Rossi RN) History of esophagogastroduodenoscopy (EGD) H/O colonoscopy Status post lumbar spine surgery for decompression of spinal cord History of fusion of cervical spine History of carpal tunnel release History of Problems with Anesthesia: No Social History Social History Household Members Other:: mother w/dementia Housing: House Are you a primary day care center director to a significant other at home: Yes (mother-has dementia) Do you presently have visiting nurse or other home services: No Alcohol intake: never Patient Tobacco Use Status: Former Tobacco user Quit Date: 05/26/23 Tobacco use type: Cigarette Cigarettes Per Day: 4 Years Smoked: 6 Smoked in Last 30 Days: No e-Cigarette/Vaping Use: Never Used Second Hand Smoke Exposure: Yes Use of substances other than those prescribed or required for medical reasons: No Have you been hit, kicked, punched, or otherwise hurt by someone within the past year? 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 Cognitive needs: Yes Hearing needs: No Vision needs: Yes Meds Allergies Allergy/AdvReac Type Severity Reaction Status Date / Time erythromycin base Allergy Intermediate Shortness Verified 06/09/23 12:49 of Breath quetiapine [From Seroquel] Allergy Intermediate Tremors, Verified 06/09/23 12:49 issue with eye pressure, Increased SI trazodone [TRAZODONE] Allergy Intermediate Difficulty Verified 06/26/23 13:56 breathing, shortness of breath Home Medications ?Medication ?Instructions ?Recorded ?Confirmed ?Last Taken ?Type clonazepam 0.5 mg tablet 0.5 mg PO BID PRN Anxiety 01/06/20 06/25/23 07/09/23 06:15 History acetaminophen 325 mg tablet 650 mg PO Q4H PRN Pain 01/17/21 07/09/23 07/02/23 History aspirin 81 mg tablet,delayed 81 mg PO QAM 03/08/21 07/09/23 07/02/23 History release (Adult Aspirin Regimen) gabapentin 800 mg tablet 800 mg PO TID 05/14/22 06/25/23 07/09/23 06:15 History duloxetine 30 mg capsule,delayed 30 mg PO QAM 10/01/22 06/26/23 07/02/23 History release gabapentin 100 mg capsule 100 mg PO TID 05/15/23 06/25/23 07/09/23 06:15 History fluticasone propionate 50 2 spray intranasal Q2D 06/26/23 06/26/23 07/02/23 History mcg/actuation nasal spray,suspension lisinopril 10 mg tablet 10 mg PO QAM 06/26/23 06/26/23 07/02/23 History Exam Height,Weight and Vital Signs: Height 5 ft 4 in Weight 69.853 kg Last Vital Signs Pulse 83 06/26/23 13:59 Resp 20 06/26/23 13:59 BP 104/59 L 06/26/23 13:59 Pulse Ox 98 06/26/23 13:59 O2 Del Method Room Air 06/26/23 13:59 Pertinent Lab Results Pertinent Lab Results: Laboratory Tests 06/11/23 07:10 WBC 6.7 Hgb 13.5 Hct 40.4 Plt Count 258 Sodium 141 Potassium 4.3 Chloride 105 Carbon Dioxide 28 BUN 14 Creatinine 0.70 Narrative Narrative: EKG 05/2023 Vent. Rate : 068 BPM Atrial Rate : 068 BPM P-R Int : 170 ms QRS Dur : 066 ms QT Int : 398 ms P-R-T Axes : 012 -47 010 degrees QTc Int : 423 ms Normal sinus rhythm Left axis deviation Inferior infarct (cited on or before 05-DEC-2022) Abnormal ECG When compared with ECG of 05-DEC-2022 12:52, Minimal criteria for Anterior infarct are no longer Present ECHO 05/2023 Conclusions: - The left ventricular systolic function is normal. The calculated ejection fraction is 64% by biplane method. - No obvious valvular pathology seen on this study. Head MRA 2022 MR angio head wo con IMPRESSION: 1. No acute intracranial abnormalities. 2. Mild underlying microangiopathy. 3. 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 4. Otherwise, normal MRA of the head. Airway Mallampati Class: II TM Dist: >3cm Neck ROM: Poor Loose/Missing/Broken Teeth: Yes (Loose and broken teeth throughout. Permanent bridge on top) Heart: RRR mild +M (echo ok) Lungs: CTAB Assessment and Plan Assessment Anesthesia Assessment: Anesthesia Plan Discussed, Smoking Cess. Discussed and PAT Visit Final Anesthetic Review Family History of Problems with Anesthesia: No History of Problems with Anesthesia: No Documented by User: Vanessa Atkins MD 07/09/23 08:47 [facility] Past Medical History Medical History (Updated 06/26/23 @ 13:56 by Rekha Rossi RN) Schatzki's ring of distal esophagus TIA (transient ischemic attack) PTSD (post-traumatic stress disorder) HTN (hypertension) Internal carotid aneurysm Gait disorder Tobacco dependence Emphysema lung Leg weakness Loss of balance Left ear pain Mild recurrent major depression Polyarthralgia Daytime sleepiness Leukopenia De Quervain's disease (tenosynovitis) Anxiety Weight gain Dyslipidemia WILL (obstructive sleep apnea) Postlaminectomy syndrome, cervical Chronic pain syndrome Disc degeneration, lumbar Spondylosis without myelopathy or radiculopathy, lumbar region Family History Family History Father Emphysema of lung Mother Stroke Hypertension Diabetes Brother Bladder cancer Son No problems noted. Daughter No problems noted. Sister Breast cancer Surgical History Surgical History (Updated 06/26/23 @ 13:54 by Rekha Rossi RN) History of esophagogastroduodenoscopy (EGD) H/O colonoscopy Status post lumbar spine surgery for decompression of spinal cord History of fusion of cervical spine History of carpal tunnel release Social History Social History Household Members Other:: mother w/dementia Housing: House Are you a primary day care center director to a significant other at home: Yes (mother-has dementia) Do you presently have visiting nurse or other home services: No Alcohol intake: never Patient Tobacco Use Status: Former Tobacco user Quit Date: 05/26/23 Tobacco use type: Cigarette Cigarettes Per Day: 4 Years Smoked: 6 Smoked in Last 30 Days: No e-Cigarette/Vaping Use: Never Used Second Hand Smoke Exposure: Yes Use of substances other than those prescribed or required for medical reasons: No Have you been hit, kicked, punched, or otherwise hurt by someone within the past year? 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 Cognitive needs: Yes Hearing needs: No Vision needs: Yes Meds Allergies Allergy/AdvReac Type Severity Reaction Status Date / Time erythromycin base Allergy Intermediate Shortness Verified 06/09/23 12:49 of Breath quetiapine [From Seroquel] Allergy Intermediate Tremors, Verified 06/09/23 12:49 issue with eye pressure, Increased SI trazodone [TRAZODONE] Allergy Intermediate Difficulty Verified 06/26/23 13:56 breathing, shortness of breath Home Medications ?Medication ?Instructions ?Recorded ?Confirmed ?Last Taken ?Type clonazepam 0.5 mg tablet 0.5 mg PO BID PRN Anxiety 01/06/20 06/25/23 07/09/23 06:15 History acetaminophen 325 mg tablet 650 mg PO Q4H PRN Pain 11/07/09/23 07/02/23 History aspirin 81 mg tablet,delayed 81 mg PO QAM 03/08/21 07/09/23 07/02/23 History release (Adult Aspirin Regimen) gabapentin 800 mg tablet 800 mg PO TID 05/14/22 06/25/23 07/09/23 06:15 History duloxetine 30 mg capsule,delayed 30 mg PO QAM 10/01/22 06/26/23 07/02/23 History release gabapentin 100 mg capsule 100 mg PO TID 05/15/23 06/25/23 07/09/23 06:15 History fluticasone propionate 50 2 spray intranasal Q2D 06/26/23 06/26/23 07/02/23 History mcg/actuation nasal spray,suspension lisinopril 10 mg tablet 10 mg PO QAM 06/26/23 06/26/23 07/02/23 History Assessment and Plan Assessment Anesthesia Assessment: Chart Reviewed Final Anesthetic Review NPO: Yes ASA Class: III Final Preanesthetic Review: No Changes in Pt Med Stat, Meds/Allgs Chart R yari, Consent Obtained/Reviewed and Anes Risks/Benef Reviewed Patient Risk: Intermediate Procedure Risk: Intermediate Anesthetic Plan Anesthetic Plan: GA Disposition: Standard PACU
[2023-07-09] VITALS (9 sets, daily range): BP systolic 112–157; BP diastolic 67–83; PULSE 62–100; RESP 14–17; TEMP 36.6–37.1; O2SAT 94–100; BMI 26.6
--- NOTE | ~2023-07-09 | FL_ITS ---
EXAMINATION: XR FLUOROSCOPY WITH IMAGES CLINICAL INFORMATION: Anterior cervical disc with fusion. COMPARISON: None available. TECHNIQUE: Fluoroscopy Supervised By: Dr. Clayton. Fluoroscopy Time: 0.38 sec. Cumulative Dose: 0.3318 mGy. DAP: 0.1444 Gycm2. Images: 2. FINDINGS: Intraoperative fluoroscopy and spot films were performed during a procedure in the OR. ACDF hardware is noted from C3 through C7. Disc fusion devices present at C3-C4. Please see Dr. Clayton' report for complete details. FL/FL guidance in OR IMPRESSION: Intraoperative fluoroscopy and spot films were obtained. Please see Dr. Clayton' report for complete details.
--- NOTE | 2023-07-09 07:22 | MHC.SHP ---
Pre-Procedural Eval Section A - 24 Hr Update-Section A only Date of Service: 07/09/23 Section B - Complete if H&P > 30 days Chief Complaint: Disease of spinal cord, unspecified Allergies: Allergies Allergy/AdvReac Type Severity Reaction Status Date / Time erythromycin base Allergy Intermediate Shortness Verified 06/09/23 12:49 of Breath quetiapine [From Seroquel] Allergy Intermediate Tremors, Verified 06/09/23 12:49 issue with eye pressure, Increased SI trazodone [TRAZODONE] Allergy Intermediate Difficulty Verified 06/26/23 13:56 breathing, shortness of breath Review of Systems Sugical H&P ROS: Negative: Constitution, Cardiovascular, Respiratory, Neurological, Psychiatric, Hem-Onc, Allergic/Immunologic, Gastrointestinal, Genitourinary, Musculoskeletal, Integumentary, Endocrine and Eyes/Ears/Nose/Throat Exam Surgical H&P Exam: Not Evaluated: HEENT, Not Evaluated: Heart, Not Evaluated: Lungs, Not Evaluated: Extremities, Not Evaluated: Abdomen, Not Evaluated: Skin and Not Evaluated: Neurological Plan Diagnosis/Plan: Unchanged I have reviewed the history and physical and performed a pertinent physical examination on my patient. No changes have occurred unless specified. Plan remains the same, C3-4 ACDF. Time Spent With Patient Time: Total time managing care of this patient today __8__ minutes.
[2023-07-09] MEDS: Lactated Ringers 1,000 ML 100 ML IVCONT (08:27)
[2023-07-09] MEDS: methocarbamoL 750 MG TABLET PO (08:31)
[2023-07-09] MEDS: Albuterol Sulfate (0.083%) 2.5 MG/3 ML VIAL.NEB INHALE (08:38)
--- NOTE | 2023-07-09 11:13 | P.OP_ITS ---
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 I have explained the nature, purpose and benefits of the operation. I have discussed the risks and benefit of the operation including possible complications or adverse events with patient/family. Alternative(s) were discussed with the patient with their relative benefits and risks as well as the consequences of not accepting the operation were included in obtaining consent. Surgeon: BRIDGETT LEY MD, PHD Procedure Assisted By: MINO Goel Description of Procedure: This 63-year-old female had a previous C4-C7 fusion done in another institution. She presents with progressive cervical myelopathy due to adjacent degenerative disc disease with spinal cord compression at C3-C4. The procedure complications were explained. The patient was consented. The patient was brought to the operating room and endotracheally intubated. The patient was put in supine position with slight extension of the neck. Prep and drape was done followed by timeout. A mid cervical incision was made followed by opening of the platysma. The prevertebral fascia was reached following the natural planes while the physician assistant gm of content & delivery provided manual retraction. The prevertebral fascia was opened to expose the disc space. A spinal needle was placed in the disk space to confirm the correct level with xray. The longus colli muscles were released bilaterally and a self retaining retractor was inserted. Two [place] pins were placed in the C3-C4 vertebral bodies and distraction was give over the interspace. The discectomy was completed toward the posterior annulus of the disc. The microscope was brought in. The remainder of the discectomy was completed. The posterior ligament was opened and resected to expose the underlying dura. Osteophytes were resected from the body of C3 and C4 to decompress the spinal cord and saved for autograft. Bilateral foraminotomies were done. The endplates were prepared after which a 7 mm cage filled with autograft was inserted into the disc space. A separate attached plate was locked down with 2 x 14 mm screws as anterior instrumentation. Final x-rays in AP and lateral projection showed a satisfactory position of the implant. The physician assistant gm of content & delivery took over. The [place] pin was removed. Hemostasis was done. He closed the incision in 2 layers with a 3-0 Vicryl. Steri-Strips used to approximate incision. An OpSite with Tegaderm was used to cover the incision. All sponge and needle counts were correct. Patient was extubated and transported in stable is to recovery room. Anesthesia: General Estimated Blood Loss (ml): 25 mL Duration of Surgery: 60 minutes Postoperative Plan: Discharge home Complications: None
--- NOTE | 2023-07-09 11:15 | P.DS_ITS ---
DS: Providers Provider Date of Service: 07/09/23 Primary care physician: Radha Gee MD DS: Summary Time Attestation Discharge Coordination Time (in mins): 15 Quality: Safe Use of Opioids Does Pt have an Active Cancer Diagnosis on the Problem List?: No Quality: Stroke Does the patient have a stroke diagnosis?: No Physical Exam Vital Signs: Vital Signs: Last Vital Signs Temp 98.7 F 07/09/23 08:18 Pulse 62 07/09/23 08:38 Resp 16 07/09/23 08:38 BP 112/67 07/09/23 08:18 Pulse Ox 95 07/09/23 08:18 O2 Del Method Room Air 07/09/23 08:18 BMI result Body Mass Index 26.6 Discharge Plan Discharge Patient Disposition: Home, Self-Care Referrals: Radha Schultz MD [Primary Care Provider] - 1 Week Discharge Medications: New oxycodone 5 mg tablet 5 mg PO Q6H PRN (Reason: pain) Qty: 30 0RF Rx Instructions: Partial Fill upon patient request. Continued rosuvastatin 5 mg tablet 5 mg PO BEDTIME 90 Days Qty: 90 1RF triamcinolone acetonide 0.1 % cream 1 appl topical DAILY 30 Days Qty: 30 0RF fluocinolone acetonide oil [DermOtic Oil] 0.01 % drops 5 drp otic (ear) left BID 7 Days Qty: 20 0RF albuterol sulfate [Ventolin HFA] 90 mcg/actuation HFA aerosol inhaler 2 inh inhalation Q6H PRN (Reason: shortness of breath or wheezing) 30 Days Qty: 18 12RF acetaminophen 325 mg Tablet 650 mg PO Q4H PRN (Reason: Pain) gabapentin 100 mg capsule 100 mg PO TID lisinopril 10 mg tablet 10 mg PO QAM fluticasone propionate 50 mcg/actuation spray,suspension 2 spray intranasal Q2D gabapentin 800 mg tablet 800 mg PO TID duloxetine 30 mg capsule,delayed release(DR/EC) 30 mg PO QAM Held aspirin [Adult Aspirin Regimen] 81 mg tablet,delayed release (DR/EC) 81 mg PO QAM Hold Instructions: Resume on 07/16/23. Hold for 1 week postoperatively No Action clonazepam 0.5 mg tablet 0.5 mg PO BID PRN (Reason: Anxiety) Discharge Orders: Discharge Order (Routine); Ordered 07/09/23 Ordered By: Carlos Loredo Diet: Advance to usual diet Activity on Discharge: As tolerated Activity Restrictions/Additional Instructions: After your spinal surgery we ask you to observe the following restrictions/guidelines: Activity: It is normal to feel some discomfort as you increase your activity, but that will improve with time. We ask you avoid heavy lifting or acitivities that cause pain. As a general rule, 8lbs is a safe limit for lifting right after surgery. Walk as much as you feel comfortable but not to exhaustion. You will feel extra tired the first few days after surgery. Stay well hydrated. It is OK to walk up and down stairs You may return to driving when you are off narcotics (such as vicodin, oxycodone, dilaudid, etc), and you are back to normal functional capacity. If you have any concerns please check with office before driving. Return to work is specific to each patient and each surgery, so please speak with your doctor/PA at first follow up. Please bring paperwork such as FMLA at that time if you need it filled out. Medications: We will give you a short supply of narcotics after surgery (usually one weeks worth). If you need more please call the office but do not use more than prescribed. You will need to give our office 48 hours notice if you need narcotics refilled and we do not fill narcotics on weekends or evenings. If you are on a narcotic, it is a good idea to take a stool softener such as co lace or senna to avoid constipation If you take blood thinner such as aspirin, Plavix, Coumadin, Effient, Eliquis etc for conditions such as Afib, DVT, Pulmonary embolus, coronary disease, stents etc please speak with your surgeon about specific details as to when you can resume these medications. You can resume NSAIDs on post op day 1 (eg: Motrin, Naproxen, etc). Follow up: Please call the office, , after surgery to arrange a 3 week follow up for wound check. Wound Care: You may remove your dressing on the first day after surgery. ?You may ?leave open to air. Please do not remove the steri strips underneath. they will fall off on their own in one week. IT IS NORMAL FOR THE WOUND TO OOZE OR BE BLOODY FOR A FEW DAYS AFTER SURGERY. ?IF THIS HAPPENS JUST PLACE NEW DRESSING OVER IT TO AVOID STAINING CLOTHES. You may shower on post op day # 1 We ask that you do not let the water soak the wound. If it does get wet, just towel dry lightly. Please do not scrub your incision or place any type of chemical/ointment on the wound. No tub baths, pools or jacuzzis for one month. If you have any leaking or redness from your wound, or fevers, please call the office. Print Language: Montserratian
== END 2023-07-09 12:50 | disposition home or self-care (01) ==
PROVIDERS: PCP Internal Medicine; Visit Provider Neurological Surgery
PROC: (CPT 22551; principal; 2023-07-09 09:50)
DX: G95.9 Disease of spinal cord, unspecified (principal); M50.01 Cervical disc disorder with myelopathy, high cervical region; M96.1 Postlaminectomy syndrome, not elsewhere classified; G89.4 Chronic pain syndrome; R20.0 Anesthesia of skin; R29.2 Abnormal reflex; R29.6 Repeated falls; Z99.89 Dependence on other enabling machines and devices; I67.1 Cerebral aneurysm, nonruptured; I10 Essential (primary) hypertension; J44.9 Chronic obstructive pulmonary disease, unspecified; J43.9 Emphysema, unspecified; Z86.73 Personal history of transient ischemic attack (TIA), and cerebral infarction without residual deficits; Z79.51 Long term (current) use of inhaled steroids; Z79.82 Long term (current) use of aspirin; Z79.899 Other long term (current) drug therapy; Z88.1 Allergy status to other antibiotic agents; Z88.5 Allergy status to narcotic agent; Z88.8 Allergy status to other drugs, medicaments and biological substances; Z87.891 Personal history of nicotine dependence
CPT/HCPCS: 22551; 22853; 20936; 22845; 94640; C1713; C1889; J0131; J0690; J1100; J2250; J2405; J2704; J3010

== ENCOUNTER → 2023-07-09 06:57 | Outpatient (BNV) | payer MEDICARE, MEDICAID, OTHER, SELFPAY | PROVIDERS: PCP Internal Medicine; Visit Provider Neurological Surgery | DX: G95.9 Disease of spinal cord, unspecified (principal) | CPT/HCPCS: 20936; 22551; 22845; 22853; 99499 ==

== ENCOUNTER 2023-07-31 11:03 | Outpatient (AMB) | payer MEDICARE, MEDICAID, SELFPAY ==
--- NOTE | 2023-07-31 11:12 | HO.SPINEOV ---
Intake Visit Reasons: 1st post op Intake Note: Ms. Arguelles is here today for her 1st post po appointment. 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 She had a C3-4 ACDF completed for persistent cervical myelopathy despite previous interventions by Dr. Velasquez. To recap the goal of surgery was to stop progression of her myelopathy. Unfortunately, Kimberly has been having very difficult time since her surgery. She was quite distressed during this visit. She states she has had quite a bit of pain since surgery and had minimal relief from her pain medications that were prescribed postoperatively, therefore she only took them for the first 5 days after surgery. Additionally, she expressed frustrations regarding her continued symptomology; hand numbness, right arm pain, balance issues, lower extremity weakness. Wehad a conversation regarding the goals of surgery and discussed her anticipated healing progress given that she is only a few weeks out from surgery. No new neurological deficits. The patient continues to ambulate with the use of a walker. Her anterior incision site appears closed and well healing. Kimberly would like to follow up with either Sam or Dr. Clayton for her subsequent postoperative visit as they have previously evaluated her and provided her care at [facility] before the practice was moved here to [place]. I will order a set of x-rays to have completed at her subsequent follow-up visit. I also called in a prednisone Dosepak for Kimberly, in the hopes that this will help to mitigate some of her inflammation related symptoms. She denied subsequent narcotic pain medication prescriptions for the pain. Carlos Clayton MD,PhD [facility] Medications: New methylprednisolone (Medrol (Delvin)) PO PER PKG DIR 21 ea 0RF Coding Level of Care Code Global (36833) Diagnoses S/P cervical spinal fusion Z98.1
== END 2023-07-31 11:48 | disposition home or self-care (01) ==
PROVIDERS: PCP Internal Medicine; Visit Provider Physician Assistant
DX: Z98.1 Arthrodesis status (principal)
CPT/HCPCS: 99024

== ENCOUNTER → 2023-07-31 11:03 | Outpatient (BNVA) | payer MEDICARE, OTHER, MEDICAID, SELFPAY | PROVIDERS: PCP Internal Medicine; Visit Provider Physician Assistant | DX: Z98.1 Arthrodesis status (principal) | CPT/HCPCS: 99212 ==

== ENCOUNTER 2023-08-18 08:07 | Outpatient (REF) | payer MEDICARE, MEDICAID, SELFPAY ==
--- NOTE | ~2023-08-18 | CT_ITS ---
EXAMINATION: CT CHEST WITHOUT CONTRAST CLINICAL INFORMATION: Pulmonary nodules COMPARISON: 07/04/2022, 07/17/2021 TECHNIQUE: Multidetector volumetric CT imaging of the chest was done. Axial MIP volume rendering provided. Sagittal and coronal reformatted images were obtained. This CT examination was performed using dose optimization techniques as appropriate, variously including the following: *Automated exposure control *Adjustment of mA and/or kV according to patient size (this includes techniques or standardized protocols for targeted exams where dose is matched to indication/reason for exam; i.e. extremities or head) *Use of iterative reconstruction technique DLP: 118 mGy-cm FINDINGS: LUNGS: Left lower lobe 3 mm nodule (5:419), unchanged. Left lower lobe 5 mm subpleural nodule is unchanged (5:321). Right lower lobe 3 mm nodule (5:397), unchanged. Right upper lobe 6 mm nodule (5:118), unchanged. No new or enlarging pulmonary nodule. Central airways are patent. PLEURA: No pleural effusion. MEDIASTINUM: No cardiomegaly. Aorta and pulmonary artery are normal in caliber. No mediastinal adenopathy. Lack of IV contrast limits evaluation for hilar adenopathy. CORONARY ARTERY CALCIFICATION: No coronary artery calcification appreciated. CHEST WALL/AXILLA: No axillary or internal mammary lymphadenopathy. UPPER ABDOMEN: Unremarkable. OSSEOUS STRUCTURES: Partially visualized upper cervical spine hardware. Degenerative changes of the thoracolumbar spine. CT/CT chest wo IV con IMPRESSION: Bilateral pulmonary nodules measuring up to 6 mm are unchanged. No new or enlarging pulmonary nodule. According to Fleischner Society guidelines, these nodules are favored to be benign.
== END 2023-08-18 08:08 | disposition home or self-care (01) ==
LOC: HO.CT 08:07
PROVIDERS: PCP Internal Medicine; Visit Provider Hospitalist
DX: R91.8 Other nonspecific abnormal finding of lung field (principal)
CPT/HCPCS: 71250

== ENCOUNTER 2023-09-12 10:46 | Outpatient (AMB) | payer MEDICARE, MEDICAID, SELFPAY ==
--- NOTE | 2023-09-12 11:53 | A.SPINEOV_ITS ---
Intake Visit Reasons: 2nd post op with xrays Intake Note: Ms. 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 Unfortunately she has not seen any improvement in her myelopathic symptoms. I went back and looked at her MRI and this shows that she had a spinal cord T2 signal change at that level and this makes it much harder to predict, in fact makes it less likely the patient's can see long-term improvements. They do however have up to a year or more where things could get better. Her x-rays today look great. Her wound is healed up well. I will see her back in 2 months and reassess. If she has no better at that time I will get a new MRI just to double check that the spinal cord is adequately decompressed. Lenin Clayton MD, PhD [facility] Orders: Orders XR cervical spine 4V Today Z98.1 - Arthrodesis status Coding Level of Care Code Global (36247) Diagnoses S/P cervical spinal fusion Z98.1
== END 2023-09-12 12:24 | disposition home or self-care (01) ==
PROVIDERS: PCP Internal Medicine; Visit Provider Physician Assistant
DX: Z98.1 Arthrodesis status (principal)
CPT/HCPCS: 99024

== ENCOUNTER 2023-09-12 10:46 | Outpatient (REF) | payer MEDICARE, OTHER, MEDICAID, SELFPAY ==
--- NOTE | ~2023-09-12 | XR_ITS ---
EXAMINATION: XR CERVICAL SPINE CLINICAL INFORMATION: Arthrodesis status COMPARISON: #2020. TECHNIQUE: 4 views of the cervical spine were obtained. FINDINGS: No prevertebral swelling. Anterior fusion hardware previously seen C4-C7 appears to be intact and not appreciably changed in alignment. As noted previously, there appears to be a solid bony fusion at these levels which is unchanged. No acute compression fractures seen. There has been new disc space hardware inserted at the disc at the C3-C4 level since the previous evaluation. On the given limited flexion and extension views there does not appear to be any abnormal mobility. There is multilevel posterior facet arthrosis. XR/XR cervical spine 4V IMPRESSION: 1. Anterior fusion hardware C4-C7 appears to be intact and not appreciably changed in alignment. 2. New disc space hardware inserted at the C3-C4 level since the previous evaluation. 3. No abnormal mobility seen on the given limited flexion and extension views.
== END 2023-09-12 10:47 | disposition home or self-care (01) ==
LOC: HO.HOSX 10:46
PROVIDERS: PCP Internal Medicine; Visit Provider Physician Assistant
DX: Z47.89 Encounter for other orthopedic aftercare (principal); Z98.1 Arthrodesis status
CPT/HCPCS: 72050; 99212

== ENCOUNTER 2023-10-07 09:18 | Outpatient (AMB) | payer MEDICARE, MEDICAID, SELFPAY ==
--- NOTE | 2023-10-07 09:21 | A.OFFPC_ITS ---
Vital Signs 10/07/23 09:22 Height 5 ft 4 in Weight 151 lb BMI 25.9 BP 118/72 Blood Pressure Location Lt brachial Position Sitting Intake Visit Reasons: pe Intake Note: Patient here for a physical exam [employer] Attendant Required: No Accompanied by: Self / Same As Patient Allergies erythromycin base Allergy (Intermediate, Verified 10/07/23 09:40) Shortness of Breath quetiapine [From Seroquel] Allergy (Intermediate, Verified 10/07/23 09:40) Tremors, issue with eye pressure, Increased SI trazodone [TRAZODONE] Allergy (Intermediate, Verified 10/07/23 09:40) Difficulty breathing, shortness of breath Medication List - Last Reconciled 10/07/23 by Radha Gee MD aspirin (Adult Aspirin Regimen) 81 mg PO QAM clonazepam 0.5 mg PO BID PRN duloxetine 30 mg PO QAM fluocinolone acetonide oil 0.01% (DermOtic Oil) 5 drps otic (ear) left BID 7 days fluticasone propionate 50 mcg/actuation 2 sprays intranasal Q2D gabapentin 800 mg PO TID gabapentin 100 mg PO TID lisinopril 10 mg PO QAM methylprednisolone (Medrol (Delvin)) PO PER PKG DIR rosuvastatin 5 mg PO BEDTIME 90 days triamcinolone acetonide 0.1% 1 appl topical DAILY 30 days Ventolin HFA 90 mcg/actuation (albuterol sulfate) 2 inhalations inhalation Q6H PRN 30 days NS Tobacco use date assessed: 04/01/23 Fall risk assessment: 2 + Falls in past year Last assessed Fall Risk: 10/07/23 Dental Screening Dental Screen Date: 04/01/23 HPI HPI Comments History of Present Illness Details This is a 63-year-old female with mild recurrent major depression and emphysema that comes for her physical exam. Depression is follow by Psychiatry. Emphysema follow by pulmonology. Walks with a walker for gait stability. Complains of bilateral knee pain more prominent in the right. Would like x- rays. Also has dysuria due to urinary tract infection seen in urinalysis and I will order urine culture. Mammogram done over a year ago. DEXA scan done over 2 years ago. Colonoscopy done less than 10 years ago and was normal. [facility] Medical History (Updated 10/07/23 @ 10:55 by Radha Gee MD) Schatzki's ring of distal esophagus TIA (transient ischemic attack) PTSD (post-traumatic stress disorder) HTN (hypertension) Internal carotid aneurysm Gait disorder Tobacco dependence Emphysema lung Leg weakness Loss of balance Left ear pain Mild recurrent major depression Polyarthralgia Daytime sleepiness Leukopenia De Quervain's disease (tenosynovitis) Anxiety Weight gain Dyslipidemia WILL (obstructive sleep apnea) Postlaminectomy syndrome, cervical Chronic pain syndrome Disc degeneration, lumbar Spondylosis without myelopathy or radiculopathy, lumbar region Surgical History History of esophagogastroduodenoscopy (EGD) H/O colonoscopy Status post lumbar spine surgery for decompression of spinal cord History of fusion of cervical spine History of carpal tunnel release Family History (Updated 10/07/23 @ 09:45 by Radha Gee MD) Father Emphysema of lung Mother Stroke Hypertension Diabetes Dementia Brother Bladder cancer Son No problems noted. Daughter No problems noted. 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 Cognitive needs: Yes Hearing needs: No Vision needs: Yes Questionnaire Thrive Questionnaire Date Thrive assessed: 10/07/23 I am a: Patient What is your living situation today?: I have a steady place to live Within the past 12 months, did the food you bought not last and you didn't have the money to get more?: Never true Within the past 12 months, did you worry whether your food would run out before you got money to buy more?: Never true Do you have trouble paying for medicines?: No Do you have trouble getting transportation to medical appointments?: No Do you have trouble paying your heating and electricity bill?: No Do you have trouble taking care of your child, family member or friend?: No Do you have trouble with day-to-day activities such as bathing, preparing meals, shopping, managing finances, etc.?: No Are you currently unemployed and looking for a job?: No Are you interested in more education?: No Please select the resources that you would like help with: None Currently or been in a relationship where the following occur: No concerns reported THRIVE Score: 0 STEPHANIE-7 AMB Questionnaire STEPHANIE-7 Date STEPHANIE - 7 assessed: 04/01/23 Source: Developed by Drs. Dinesh Dalton, Angy Pickard, Arcadio Luis and colleagues, with an educational tad from [employer]. Review of Systems Const All systems reviewed & are unremarkable except as noted in HPI and below Card Denies chest pain at rest, Denies chest pain with activity, Denies edema, Denies irregular heart rhythm, Denies claudication, Denies dyspnea, Denies dyspnea on exertion, Denies orthopnea, Denies paroxysmal nocturnal dyspnea and Denies slow heart rate Resp Denies cough, Denies dyspnea and Denies dyspnea on exertion GI Denies abdominal pain, Denies change in bowel habits, Denies excessive flatus, Denies nausea and Denies vomiting Denies urinary incontinence, Denies urinary hesitancy and Reports urinary urgency Musc Reports abnormal gait, Reports back pain, Denies atrophy, Denies deformity, Reports joint swelling and Reports limited range of motion Skin/Breast Denies bleeding lesions, Denies changing lesions and Denies rash Neuro Reports abnormal gait and Denies lack of coordination Psych Reports abnormal sleep pattern, Reports anxiety and Reports depression Physical exam (Primary Care) Vital Signs: Last Vital Signs BP 118/72 10/07/23 09:22 BMI result Body Mass Index 25.9 Tobacco/Smoking Status: Tobacco use Status Tobacco use date assessed 04/01/23 10/07/23 09:31 Patient Tobacco Use Status Former Tobacco user 10/07/23 09:31 Tobacco use type Cigarette 10/07/23 09:31 e-Cigarette/Vaping Use Never Used 10/07/23 09:31 Thrive Assessment: Date of Thrive Assessment Date Thrive assessed 10/07/23 10/07/23 09:31 Currently or been in a relationship where the following occur: No concerns reported Const Limitations: ambulation with walker HENMT Head: Yes normal to inspection, Yes normocephalic and Yes atraumatic Ears: external ears normal Eyes General: appearance normal, both eyes and all related structures Eyelids: Yes eyelids normal Conjunctivae: conjunctivae normal Neck Neck: Yes normal visual inspection and Yes supple Resp Effort & Inspection: normal respiratory effort Auscultation: clear to auscultation bilaterally Cardio Jugular venous distension: no JVD Rate: regular rate Rhythm: regular rhythm Heart sounds: S1 normal heart sound present and S2 normal heart sound present GI Inspection: Yes normal to inspection Palpation (GI): Soft to palpation and nontender Auscultation: normal bowel sounds Skin General skin exam: no rashes or lesions noted Neuro General: no focal motor deficits Extrem Right lower extremity: knee Details: tenderness and swelling Psych Appearance: grossly normal Results AMB Urinalysis, Automated UA Leukoctes 3 Garcia/uL Last Edit by Alyssa Kyle [facility] on 10/07/23 10:10 UA Nitrite Negative Last Edit by [facility] on 10/07/23 10:10 UA Urobilinogen 0.2 mg/dL Last Edit by [facility], [facility] on 10/07/23 10: 10 UA Protein 0 mg/dL Last Edit [facility] on 10/07/23 10:10 UA pH 6.0 Last Edit by [facility] on 10/07/23 10:10 UA Blood 0 Jair/uL Last Edit by [facility] Saroj [facility] on 10/07/23 10:10 UA Specific [place] 1.010 Last Edit by Alyssa Kyle [facility] on 10/07/23 10 :10 UA Ketone Positive Last Edit by [facility], [facility] on 10/07/23 10:10 UA Bilirubin 0 mg/dL Last Edit by [facility] on 10/07/23 10:10 UA Glucose 0 mg/dL Last Edit by [facility] on 10/07/23 10:10 Results Reviewed Results Reviewed: Laboratory Last Values Urine pH (Auto) 6.0 10/07/23 10:07 Specific [place] (Auto) 1.010 10/07/23 10:07 Urine Protein (Auto) 0 mg/dL 10/07/23 10:07 Glucose (UA)(Auto) 0 mg/dL 10/07/23 10:07 Urine Ketones (Auto) Positive 10/07/23 10:07 Urine Blood (Auto) 0 Jair/uL 10/07/23 10:07 Urine Nitrite (Auto) Negative 10/07/23 10:07 Urine Bilirubin (Auto) 0 mg/dL 10/07/23 10:07 Urine Urobilinogen (Auto) 0.2 mg/dL 10/07/23 10:07 Leukocyte Esterase (Auto) 3 Garcia/uL 10/07/23 10:07 Assessment and Plan Assessment & Plan (1) Physical exam: Code(s): Z00.00 - Encounter for general adult medical examination without abnormal findings Plan: Repeat in a year. (2) Left knee pain: Code(s): M25.562 - Pain in left knee Qualifiers: Chronicity: chronic Qualified Code(s): M25.562 - Pain in left knee; G89.29 - Other chronic pain Plan: X-ray ordered. (3) Right knee pain: Code(s): M25.561 - Pain in right knee Qualifiers: Chronicity: chronic Qualified Code(s): M25.561 - Pain in right knee; G89.29 - Other chronic pain Plan: X-ray ordered. (4) UTI (urinary tract infection): Code(s): N39.0 - Urinary tract infection, site not specified Qualifiers: Urinary tract infection type: acute cystitis Hematuria presence: without hematuria Qualified Code(s): N30.00 - Acute cystitis without hematuria Plan: Start nitrofurantoin. Urine culture ordered. (5) Mild recurrent major depression: Code(s): F33.0 - Major depressive disorder, recurrent, mild Plan: Continue duloxetine. Follow-up with psychiatry. (6) Emphysema lung: Code(s): J43.9 - Emphysema, unspecified Qualifiers: Emphysema type: centrilobular Qualified Code(s): J43.2 - Centrilobular emphysema Plan: Use rescue inhaler as needed. Follow-up with pulmonology. Orders: Orders XR DEXA axial skeleton Today N95.9 - Unspecified menopausal and perimenopausal disorder MM screening mammo BI Today Z12.31 - Encounter for screening mammogram for malignant neoplasm of breast XR knee LT 2V Today M25.562 - Pain in left knee Urine Culture Today N39.0 - Urinary tract infection, site not specified AMB Urinalysis Automated Today N39.0 - Urinary tract infection, site not specif ied XR knee RT 2V Today M25.561 - Pain in right knee Lipid Panel Today E78.5 - Hyperlipidemia, unspecified Comprehensive [place]. Panel Fast Today G95.9 - Disease of spinal cord, unspecified Medications: New nitrofurantoin macrocrystal must administer with a meal/food 100 mg PO BID 10 caps 0RF 5 days Coding Level of Care Code Est Pt Level 3 (22813) Est Pt Prev Care >65y(14217) Diagnoses Physical exam Z00.00 Chronic pain of left knee M25.562; G89.29 Chronicity: chronic Chronic pain of right knee M25.561; G89.29 Chronicity: chronic Acute cystitis without hematuria N30.00 Urinary tract infection type: acute cystitis Hematuria presence: without hematuria Mild recurrent major depression F33.0 Centrilobular emphysema J43.2 Emphysema type: centrilobular Time Spent (min) 35
[2023-10-07 09:22] VITALS: BP 118/72; BMI 25.9
== END 2023-10-07 10:10 | disposition home or self-care (01) ==
PROVIDERS: PCP Internal Medicine; Visit Provider Internal Medicine
DX: Z00.00 Encounter for general adult medical examination without abnormal findings (principal); F33.0 Major depressive disorder, recurrent, mild; J43.2 Centrilobular emphysema; N30.00 Acute cystitis without hematuria; M25.562 Pain in left knee; N39.0 Urinary tract infection, site not specified; G89.29 Other chronic pain; M25.561 Pain in right knee
CPT/HCPCS: 81003; 99213; 99397

== ENCOUNTER 2023-10-07 10:02 | Outpatient (REF) | payer MEDICARE, MEDICAID, SELFPAY | END 2023-10-07 10:03 | disposition home or self-care (01) | LOC: HO.LAB 10:02 | PROVIDERS: Visit Provider Internal Medicine | DX: N39.0 Urinary tract infection, site not specified (principal) | CPT/HCPCS: 87086; 87147 ==

== ENCOUNTER 2023-11-10 11:21 | Outpatient (AMB) | payer MEDICARE, MEDICAID, SELFPAY ==
--- NOTE | 2023-11-10 11:35 | HO.SPINEOV ---
Intake Visit Reasons: 3rd post op Intake Note: Ms. Arguelles is here today for her 3rd post-op appointment. Senior Qa Tester Required: No Allergies erythromycin base Allergy (Intermediate, Verified 10/07/23 09:40) Shortness of Breath quetiapine [From Seroquel] Allergy (Intermediate, Verified 10/07/23 09:40) Tremors, issue with eye pressure, Increased SI trazodone [TRAZODONE] Allergy (Intermediate, Verified 10/07/23 09:40) Difficulty breathing, shortness of breath Assessment & Plan Assessment & Plan (1) S/P cervical spinal fusion: Code(s): Z98.1 - Arthrodesis status Category: Medical (2) Cervical myelopathy: Code(s): G95.9 - Disease of spinal cord, unspecified Category: Medical Plan Mrs Arguelles is here in the office today to follow-up, she underwent an anterior cervical fusion at C3-4 above previous fusion done by Dr. Velasquez from C4-C7. Unfortunately she has not seen a significant improvement in her symptoms that she had prior to surgery. The pain she had in her arm seemed to be better but her overall myelopathic symptoms of weakness, gait imbalance, falls etc. remains unchanged. We wanted to give it a little time before we repeated an MRI so I saw her back in the office today for evaluation. She remains diffusely weak in the upper and lower extremities with hyperreflexia. Her wound is healed well. I am going to repeat an MRI of the cervical spine to rule out recurrent stenosis. I did warn her that because she had cord signal change not only during the time of our surgery, but also at the time of Dr. Velasquez surgery that her spinal cord may just be damage to a degree where there is no way that surgery can make it heal and these maybe lasting deficits that she will have to live with. I will call her with the results of the MRI. Total amount of time spent in this visit was 20 minutes in discussion of symptoms, ordering MRI imaging and subsequent plan of care Lenin Clayton MD,PhD [facility] Orders: Orders XR cervical spine 4V Today Z98.1 - Arthrodesis status MR cervical spine wo con Today G95.9 - Disease of spinal cord, unspecified Coding Level of Care Code Est Pt Level 3 (85947) Diagnoses S/P cervical spinal fusion Z98.1 Cervical myelopathy G95.9
== END 2023-11-10 12:49 | disposition home or self-care (01) ==
PROVIDERS: PCP Internal Medicine; Visit Provider Physician Assistant
DX: Z98.1 Arthrodesis status (principal); G95.9 Disease of spinal cord, unspecified
CPT/HCPCS: 99213

== ENCOUNTER 2023-11-10 11:21 | Outpatient (REF) | payer MEDICARE, MEDICAID, SELFPAY ==
--- NOTE | ~2023-11-10 | XR_ITS ---
EXAMINATION: XR CERVICAL SPINE XR KNEE, BILATERAL CLINICAL INFORMATION: Evaluate cervical spine fusion. Bilateral knee pain. COMPARISON: Cervical spine 09/12/2023 TECHNIQUE: AP, lateral, and lateral flexion and extension views of the cervical spine. AP and lateral views of each knee. FINDINGS: Cervical spine: Solid fusion spans C4-C7. Interbody fusion at C3-C4 appears stable with no abnormal motion on the lateral flexion and extension views. Knees: No joint space narrowing. No fracture. No significant joint effusions. XR/XR knee LT 2V IMPRESSION: CERVICAL SPINE: Solid fusion from C4 through C7. C3-C4 interbody fusion appears stable with no abnormal motion. BILATERAL KNEES: Normal knees. Electronically signed by: Jericho Jyo MD 11/28/2023 08:28 AM EDT
--- NOTE | ~2023-11-10 | XR_ITS ---
EXAMINATION: XR CERVICAL SPINE XR KNEE, BILATERAL CLINICAL INFORMATION: Evaluate cervical spine fusion. Bilateral knee pain. COMPARISON: Cervical spine 09/12/2023 TECHNIQUE: AP, lateral, and lateral flexion and extension views of the cervical spine. AP and lateral views of each knee. FINDINGS: Cervical spine: Solid fusion spans C4-C7. Interbody fusion at C3-C4 appears stable with no abnormal motion on the lateral flexion and extension views. Knees: No joint space narrowing. No fracture. No significant joint effusions. XR/XR cervical spine 4V IMPRESSION: CERVICAL SPINE: Solid fusion from C4 through C7. C3-C4 interbody fusion appears stable with no abnormal motion. BILATERAL KNEES: Normal knees. Electronically signed by: Jericho Joy MD 11/28/2023 08:28 AM EDT
--- NOTE | ~2023-11-10 | XR_ITS ---
EXAMINATION: XR CERVICAL SPINE XR KNEE, BILATERAL CLINICAL INFORMATION: Evaluate cervical spine fusion. Bilateral knee pain. COMPARISON: Cervical spine 09/12/2023 TECHNIQUE: AP, lateral, and lateral flexion and extension views of the cervical spine. AP and lateral views of each knee. FINDINGS: Cervical spine: Solid fusion spans C4-C7. Interbody fusion at C3-C4 appears stable with no abnormal motion on the lateral flexion and extension views. Knees: No joint space narrowing. No fracture. No significant joint effusions. XR/XR knee RT 2V IMPRESSION: CERVICAL SPINE: Solid fusion from C4 through C7. C3-C4 interbody fusion appears stable with no abnormal motion. BILATERAL KNEES: Normal knees. Electronically signed by: Jericho Joy MD 11/28/2023 08:28 AM EDT
== END 2023-11-10 11:22 | disposition home or self-care (01) ==
LOC: HO.XRAY 11:21
PROVIDERS: PCP Internal Medicine; Referring Provider Internal Medicine; Visit Provider Physician Assistant
DX: G95.9 Disease of spinal cord, unspecified (principal); M25.561 Pain in right knee; M25.562 Pain in left knee; Z47.89 Encounter for other orthopedic aftercare; Z98.1 Arthrodesis status
CPT/HCPCS: 72050; 73560; 99212

== ENCOUNTER → 2023-12-12 10:04 | Outpatient (BNV) | payer MEDICARE, MEDICAID, SELFPAY | PROVIDERS: PCP Internal Medicine; Visit Provider Radiology Diagnostic Radiology | DX: G95.9 Disease of spinal cord, unspecified (principal) | CPT/HCPCS: 72141 ==

== ENCOUNTER 2023-12-12 10:09 | Outpatient (REF) | payer MEDICARE, MEDICAID, SELFPAY ==
--- NOTE | ~2023-12-12 | MR_ITS ---
EXAMINATION: MR CERVICAL SPINE WITHOUT CONTRAST CLINICAL INFORMATION: Disease of spinal cord, unspecified. COMPARISON: MRI dated May 19, 2023 TECHNIQUE: MRI of the cervical spine was obtained using routine sequences without contrast. FINDINGS: Submitted for interpretation on January 01, 2024. Craniocervical junction is intact. Paramagnetic field distortion secondary to metallic hardware from C3 to C7. No bone marrow STIR signal abnormality. Normal alignment. Focal hyperintense T2 STIR cor signal abnormality at C6 and C7 and to a lesser extent C4 levels of the spinal cord. C2-3: No cord compression. No neuroforamina stenosis. C3-4: Broad-based disc osteophyte complex formation. No cord compression. No neuroforamina stenosis. C4-5: No cord compression. No neuroforamina stenosis. C5-6: No cord compression. Hyperintense T2 cord signal abnormality in the left dorsal aspect. No neuroforamina stenosis. C6-7: No cord compression. Multifocal hyperintense T2 cord signal abnormality. No neuroforamina stenosis. C7-T1: No cord compression. Probable hyperintense T2 cord signal abnormality. No neuroforamina stenosis. No prevertebral compartment hematoma, mass or fluid collection. Flow-void signal within the main vessels is normal. Left vertebral artery is dominant. MR/MR cervical spine wo con IMPRESSION: Multilevel myelomalacia/myelopathy throughout the spinal cord from C3-4 to C7. No cord compression. No acute fracture or listhesis. Electronically signed by: Jemal Gan MD 01/01/2024 02:26 PM [facility]
== END 2023-12-12 10:10 | disposition home or self-care (01) ==
LOC: HO.MRI 10:09
PROVIDERS: PCP Internal Medicine; Visit Provider Physician Assistant
DX: G95.9 Disease of spinal cord, unspecified (principal)
CPT/HCPCS: 72141

== ENCOUNTER 2024-01-06 09:14 | Outpatient (AMB) | payer MEDICARE, MEDICAID, SELFPAY ==
--- NOTE | 2024-01-06 10:39 | AM.OFFWIN_ITS ---
Intake Vital Signs 01/06/24 10:43 Weight 157 lb BP 134/80 Blood Pressure Location Rt brachial Position Sitting Pulse 72 Pulse Source Pulse Oximeter Pulse Oximetry (%) 97 Oxygen Delivery Method Room Air Intake Visit Reasons: ep-Shingles Intake Note: Patient here for shingles that started on friday Patient Tobacco Use Status: Former Tobacco user Allergies erythromycin base Allergy (Intermediate, Verified 01/06/24 10:44) Shortness of Breath quetiapine [From Seroquel] Allergy (Intermediate, Verified 01/06/24 10:44) Tremors, issue with eye pressure, Increased SI trazodone [TRAZODONE] Allergy (Intermediate, Verified 01/06/24 10:44) Difficulty breathing, shortness of breath Do you need a note to return to daycare/school/sports/work: No HPI HPI Comments History of Present Illness Details Patient is a 63-year-old female complaining of 4 days of itching and burning rash that starts on her left mid back and goes around to the front, underneath her left breast. She tells me she felt a little nauseous 5 days ago and then 4 days ago she noticed her bra was hurting and when she took her off, she noticed a rash. She tells me she called her doctor's office and her doctor called in valacyclovir for her but she has not picked it up yet. She also tells me she does take 900 mg of gabapentin 3 times a day already for other nerve pain and anxiety issues. She tells me what she can see of the rash appears to be a little bit scabbed over and nothing seems to be leaking fluid right now but she can not see on her back, obviously [facility] Medical History Schatzki's ring of distal esophagus TIA (transient ischemic attack) PTSD (post-traumatic stress disorder) HTN (hypertension) Internal carotid aneurysm Gait disorder Tobacco dependence Emphysema lung Leg weakness Loss of balance Left ear pain Mild recurrent major depression Polyarthralgia Daytime sleepiness Leukopenia De Quervain's disease (tenosynovitis) Anxiety Weight gain Dyslipidemia WILL (obstructive sleep apnea) Postlaminectomy syndrome, cervical Chronic pain syndrome Disc degeneration, lumbar Spondylosis without myelopathy or radiculopathy, lumbar region Surgical History History of esophagogastroduodenoscopy (EGD) H/O colonoscopy Status post lumbar spine surgery for decompression of spinal cord History of fusion of cervical spine History of carpal tunnel release Family History (Updated 10/07/23 @ 09:45 by Radha Gee MD) Father Emphysema of lung Mother Stroke Hypertension Diabetes Dementia Brother Bladder cancer Son No problems noted. Daughter No problems noted. 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 Cognitive needs: Yes Hearing needs: No Vision needs: Yes Review of Systems Const All systems reviewed & are unremarkable except as noted in HPI and below Physical Exam Vital Signs: Last Vital Signs Pulse 72 01/06/24 10:43 BP 134/80 01/06/24 10:43 Pulse Ox 97 01/06/24 10:43 Oxygen Delivery Method Room Air 01/06/24 10:43 Const General: cooperative, healthy appearing, comfortable, no acute distress and well developed Orientation/consciousness: patient oriented x3 Limitations: no limitations Eyes General: appearance normal, both eyes and all related structures Resp Effort & Inspection: normal respiratory effort and able to speak in complete sentences Skin Other: left mid back wrapping around and under her left breast has lesions with an erythematous base in dermatomal orientation Neuro General: patient oriented x3 Assessment & Plan Assessment & Plan (1) Herpes zoster: Code(s): B02.9 - Zoster without complications Qualifiers: Herpes zoster complications: without complications Qualified Code(s): B02.9 - Zoster without complications Plan: Patient's primary care doctor apparently already called in an antiviral therapy for the patient. However, I did educate the patient that as she has had the rash for greater than 72 hours, the antiviral is less likely to be effective. I recommended she continue to take her gabapentin because this is helping her with her nerve pain. I also educated the patient on post herpetic neuralgia possibilities. Plan See above Coding Level of Care Code Est Pt Level 3 (46228) Diagnoses Herpes zoster without complication B02.9 Herpes zoster complications: without complications
[2024-01-06 10:43] VITALS: BP 134/80; PULSE 72; O2SAT 97
== END 2024-01-06 11:04 | disposition home or self-care (01) ==
PROVIDERS: PCP Internal Medicine; Visit Provider Physician Assistant
DX: B02.9 Zoster without complications (principal)

== ENCOUNTER → 2024-01-06 09:14 | Outpatient (BNVA) | payer MEDICARE, MEDICAID, SELFPAY | PROVIDERS: PCP Internal Medicine; Visit Provider Physician Assistant | DX: B02.9 Zoster without complications (principal) | CPT/HCPCS: 99212 ==

== ENCOUNTER 2024-01-13 09:54 | Outpatient (AMB) | payer MEDICARE, MEDICAID, SELFPAY ==
[2024-01-13 09:59] VITALS: BP 140/78; PULSE 89; O2SAT 100
--- NOTE | 2024-01-13 09:59 | MHC.OFFVIS ---
Vital Signs 01/13/24 09:59 Height 5 ft 4 in BP 140/78 H Blood Pressure Location Lt brachial Position Sitting Pulse 89 Pulse Source Pulse Oximeter Pulse Oximetry (%) 100 Oxygen Delivery Method Room Air Intake Visit Reasons: Pulm Nodule Intake Note: Patient refused weight check. Electric Power Superintendent Required: No Osha Inspector: Osha Inspector offered & declined Accompanied by: Self / Same As Patient Allergies erythromycin base Allergy (Intermediate, Verified 01/13/24 10:00) Shortness of Breath quetiapine [From Seroquel] Allergy (Intermediate, Verified 01/13/24 10:00) Tremors, issue with eye pressure, Increased SI trazodone [TRAZODONE] Allergy (Intermediate, Verified 01/13/24 10:00) Difficulty breathing, shortness of breath Medication List - Last Reconciled 01/13/24 by Dory Wise LPN aspirin (Adult Aspirin Regimen) 81 mg PO QAM clonazepam 0.5 mg PO BID PRN duloxetine 30 mg PO QAM fluocinolone acetonide oil 0.01% (DermOtic Oil) 5 drps otic (ear) left BID 7 days fluticasone propionate 50 mcg/actuation 2 sprays intranasal Q2D gabapentin 800 mg PO TID gabapentin 100 mg PO TID lisinopril 10 mg PO QAM rosuvastatin 5 mg PO BEDTIME 90 days triamcinolone acetonide 0.1% 1 appl topical DAILY 30 days valacyclovir 1,000 mg PO Q8H 7 days Ventolin HFA 90 mcg/actuation (albuterol sulfate) 2 inhalations inhalation Q6H PRN 30 days NS HPI Comments Details: The patient is a 63-year-old woman with a known history of tobacco dependency who apparently was in her usual state health until back in December 2020 when she started developing symptoms that were suggestive of a TIA. She was briefly admitted to the hospital. She did have a complete workup including a CT angiogram of the neck. It actually found that she had a small internal carotid aneurysm but also 5 mm pulmonary nodule. Because of her smoking history the patient did have further workup. She underwent a CT scan of the chest back in June 2021 which actually demonstrated numerous pulmonary nodules measuring between to 5 mm in size. The nodules were bilateral. She also appeared to have a right lower lobe pneumonic cyst. in the meantime the patient has been trying to quit smoking. She is motivated specially now that she has are CT scan with the pulmonary nodules and some degree of minimal emphysema. The patient does have some dyspnea on exertion. She does have a rescue inhaler that she can use as needed. 07/17/2022 the patient is here for a pulmonary follow-up visit. The patient overall has been feeling okay. She does have some chest congestion and likely sinus congestion. Nasal obstruction. Complains of dyspnea on exertion. Mild at the severity. She did have a repeat CT scan of the chest which we personally reviewed demonstrating evidence of pulmonary nodules bilaterally they have not changed since when compared to her previous CT scan. She needs to have a repeat CT scan in a year's time. She also has a brain aneurysm that is being evaluated. She did have an MRA and MRI of the brain and she does not know the results as of yet. The patient also underwent pulmonary function studies demonstrating normal lung capacity. She does have a rescue inhaler that she can use as needed and will start nasal spray for nasal congestion. The patient also has had a history of a esophageal stricture. This may be indeed impacting her respiratory capacity. Will go ahead and request a barium swallow. If abnormal will refer her to GI. 01/13/2024 the patient is here for a pulmonary follow-up visit. Overall the patient is doing well from a respiratory status. She is dealing with a lot of stress due to her mom's dementia. In the meantime the patient also developed zoster. She has a covered up and she is getting medications for. Breathing dorman she is doing okay. Denies any cough or chest tightness or wheezing. The patient did have a CT of the chest that I did review personally from 08/14/2023 demonstrating stable pulmonary nodules. Largest nodule measuring 6 mm in size. She will require another CT scan in July of 2024. She also was found to have cervical spinal cord malacia therefore she does have some numbness and tingling of her extremities. Questioning but could be affecting her phrenic nerve but it does not seem to be causing any respiratory difficulties at this time. Will plan to repeat her PFTs and a CT scan in July. If she develops any worsening symptoms however she will call for an earlier assessment. [facility] Medical History Schatzki's ring of distal esophagus TIA (transient ischemic attack) PTSD (post-traumatic stress disorder) HTN (hypertension) Internal carotid aneurysm Gait disorder Tobacco dependence Emphysema lung Leg weakness Loss of balance Left ear pain Mild recurrent major depression Polyarthralgia Daytime sleepiness Leukopenia De Quervain's disease (tenosynovitis) Anxiety Weight gain Dyslipidemia WILL (obstructive sleep apnea) Postlaminectomy syndrome, cervical Chronic pain syndrome Disc degeneration, lumbar Spondylosis without myelopathy or radiculopathy, lumbar region Surgical History History of esophagogastroduodenoscopy (EGD) H/O colonoscopy Status post lumbar spine surgery for decompression of spinal cord History of fusion of cervical spine History of carpal tunnel release Family History (Updated 10/07/23 @ 09:45 by Radha Gee MD) Father Emphysema of lung Mother Stroke Hypertension Diabetes Dementia Brother Bladder cancer Son No problems noted. Daughter No problems noted. 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 Cognitive needs: Yes Hearing needs: No Vision needs: Yes Review of Systems Const All systems reviewed & are unremarkable except as noted in HPI and below Denies fever(s) Eyes Reports no additional complaints, Denies change in vision and Denies other visual disturbances Card Denies chest pain at rest, Denies chest pain with activity, Denies edema, Denies irregular heart rhythm, Denies claudication, Denies dyspnea, Reports dyspnea on exertion, Denies orthopnea, Denies paroxysmal nocturnal dyspnea and Denies slow heart rate Resp Denies cough, Denies dyspnea and Reports dyspnea on exertion GI Denies abdominal pain, Denies change in bowel habits, Denies excessive flatus, Denies nausea and Denies vomiting Musc Reports as per HPI, Reports abnormal gait and Reports muscle weakness Skin/Breast Denies rash Neuro Reports abnormal gait Physical Exam Vital Signs: Last Vital Signs Pulse 89 01/13/24 09:59 BP 140/78 H 01/13/24 09:59 Pulse Ox 100 01/13/24 09:59 Oxygen Delivery Method Room Air 01/13/24 09:59 Const General: comfortable Orientation/consciousness: patient oriented x3 HEENT Head: Yes normal to inspection and Yes normocephalic Neck Neck: Yes supple Chest Chest palpation & inspection: normal inspection of the chest Resp Effort & Inspection: normal respiratory effort Auscultation: diminished lung sounds Cardio Rate: regular rate Rhythm: regular rhythm Heart sounds: S1 normal heart sound present and S2 normal heart sound present GI Inspection: Yes normal to inspection Skin General skin exam: no rashes or lesions noted Neuro General: patient oriented x3 Extrem General: Yes no clubbing, cyanosis or edema Psych Appearance: grossly normal Mental Status: mental status grossly normal Speech and movement: Normal speech and movement present Affect: Anxious affect present Attitude: cooperative Thought process: Normal thought process present Quality Reporting (2019) Adult ([facility] ) Smoking risk assessment performed?: Yes Patient Tobacco Use Status: Former Tobacco user Assessment & Plan Assessment & Plan (1) Pulmonary nodules: Code(s): R91.8 - Other nonspecific abnormal finding of lung field Category: Medical (2) Emphysema lung: Code(s): J43.9 - Emphysema, unspecified Category: Medical Qualifiers: Emphysema type: centrilobular Qualified Code(s): J43.2 - Centrilobular emphysema (3) Tobacco dependence: Code(s): F17.200 - Nicotine dependence, unspecified, uncomplicated Category: Medical (4) Cervicalgia: Code(s): M54.2 - Cervicalgia Category: Medical Plan HELEN as needed fluticasone nasal spray Tobacco cessation CT chest 07/2024 PFTs F/U 8 months Orders: Orders PFT pulmonary function test 08/08/24 M54.2 - Cervicalgia, R91.8 - Other nonspecific abnormal finding of lung field CT chest wo IV con 08/08/24 M54.2 - Cervicalgia, R91.8 - Other nonspecific abnormal finding of lung field Coding Level of Care Code Est Pt Level 4 (63437) Diagnoses Pulmonary nodules R91.8 Centrilobular emphysema J43.2 Emphysema type: centrilobular Tobacco dependence F17.200 Cervicalgia M54.2 Time Spent (min) 16
--- NOTE | 2024-01-13 10:06 | MHC.OFFVIS ---
Vital Signs 01/13/24 09:59 Height 5 ft 4 in BP 140/78 H Blood Pressure Location Lt brachial Position Sitting Pulse 89 Pulse Source Pulse Oximeter Pulse Oximetry (%) 100 Oxygen Delivery Method Room Air Intake Visit Reasons: Pulm Nodule Allergies erythromycin base Allergy (Intermediate, Verified 01/13/24 10:00) Shortness of Breath quetiapine [From Seroquel] Allergy (Intermediate, Verified 01/13/24 10:00) Tremors, issue with eye pressure, Increased SI trazodone [TRAZODONE] Allergy (Intermediate, Verified 01/13/24 10:00) Difficulty breathing, shortness of breath Medication List - Last Reconciled 01/13/24 by Dory Wise LPN aspirin (Adult Aspirin Regimen) 81 mg PO QAM clonazepam 0.5 mg PO BID PRN duloxetine 30 mg PO QAM fluocinolone acetonide oil 0.01% (DermOtic Oil) 5 drps otic (ear) left BID 7 days fluticasone propionate 50 mcg/actuation 2 sprays intranasal Q2D gabapentin 800 mg PO TID gabapentin 100 mg PO TID lisinopril 10 mg PO QAM rosuvastatin 5 mg PO BEDTIME 90 days triamcinolone acetonide 0.1% 1 appl topical DAILY 30 days valacyclovir 1,000 mg PO Q8H 7 days Ventolin HFA 90 mcg/actuation (albuterol sulfate) 2 inhalations inhalation Q6H PRN 30 days NS ON LICENSE OF [facility] Medical History Schatzki's ring of distal esophagus TIA (transient ischemic attack) PTSD (post-traumatic stress disorder) HTN (hypertension) Internal carotid aneurysm Gait disorder Tobacco dependence Emphysema lung Leg weakness Loss of balance Left ear pain Mild recurrent major depression Polyarthralgia Daytime sleepiness Leukopenia De Quervain's disease (tenosynovitis) Anxiety Weight gain Dyslipidemia WILL (obstructive sleep apnea) Postlaminectomy syndrome, cervical Chronic pain syndrome Disc degeneration, lumbar Spondylosis without myelopathy or radiculopathy, lumbar region Surgical History History of esophagogastroduodenoscopy (EGD) H/O colonoscopy Status post lumbar spine surgery for decompression of spinal cord History of fusion of cervical spine History of carpal tunnel release Family History (Updated 10/07/23 @ 09:45 by Radha Gee MD) Father Emphysema of lung Mother Stroke Hypertension Diabetes Dementia Brother Bladder cancer Son No problems noted. Daughter No problems noted. Sister Breast cancer Social History Household Members Other:: mother w/dementia Housing: House Are you a primary palliative care nurse practitioner to a significant other at home: Yes (mother-has dementia) Do you presently have visiting nurse or other home services: No Alcohol intake: never Patient Tobacco Use Status: Former Tobacco user Tobacco use type: Cigarette Cigarettes Per Day: 4 Years Smoked: 6 e-Cigarette/Vaping Use: Never Used Second Hand Smoke Exposure: Yes service: No Current occupational status: unemployed 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 Cognitive needs: Yes Hearing needs: No Vision needs: Yes Physical Exam Vital Signs: Last Vital Signs Pulse 89 01/13/24 09:59 BP 140/78 H 01/13/24 09:59 Pulse Ox 100 01/13/24 09:59 Oxygen Delivery Method Room Air 01/13/24 09:59 Quality Reporting (2019) Adult ([facility] 138/04/17/68) Smoking risk assessment performed?: Yes Patient Tobacco Use Status: Former Tobacco user Coding
== END 2024-01-13 10:24 | disposition home or self-care (01) ==
PROVIDERS: PCP Internal Medicine; Visit Provider Hospitalist
DX: R91.8 Other nonspecific abnormal finding of lung field (principal); J43.2 Centrilobular emphysema; F17.200 Nicotine dependence, unspecified, uncomplicated; M54.2 Cervicalgia
CPT/HCPCS: 99214

== ENCOUNTER → 2024-01-13 09:54 | Outpatient (BNVA) | payer MEDICARE, MEDICAID, SELFPAY | PROVIDERS: PCP Internal Medicine; Visit Provider Hospitalist | DX: R91.8 Other nonspecific abnormal finding of lung field (principal); J43.2 Centrilobular emphysema; M54.2 Cervicalgia; F17.210 Nicotine dependence, cigarettes, uncomplicated | CPT/HCPCS: 99212 ==

== ENCOUNTER 2024-01-29 14:09 | Outpatient (AMB) | payer MEDICARE, MEDICAID, SELFPAY ==
--- NOTE | 2024-01-29 14:23 | HO.SPINEOV ---
Intake Visit Reasons: Mri F/u Intake Note: Ms. Arguelles is here today to F/u on the results to her MRI. Ad Copy Writer Required: No Allergies erythromycin base Allergy (Intermediate, Verified 01/29/24 14:23) Shortness of Breath quetiapine [From Seroquel] Allergy (Intermediate, Verified 01/29/24 14:23) Tremors, issue with eye pressure, Increased SI trazodone [TRAZODONE] Allergy (Intermediate, Verified 01/29/24 14:23) Difficulty breathing, shortness of breath Assessment & Plan Assessment & Plan (1) Carpal tunnel syndrome: Code(s): G56.00 - Carpal tunnel syndrome, unspecified upper limb Category: Medical Plan MRs Arguelles is here in follow-up. 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 She has not noticed a significant improvement in her symptoms of gait imbalance, diffuse weakness and hand numbness postoperatively so we obtained an MRI and had her come back to review. The MRI done here at [place] shows widely patent spinal canal at the surgical area. There are 3 noticeable T2 hyperintensities along the areas where she has had previous compression. I explained to her that the long-term implication of this is that she is going to have some degree of myelopathic symptoms likely for the rest of her life. The ultimate goal of surgery is to stop the progression of symptoms and not necessarily reverse them. She understands this as she has been through the process of recovery before for similar problems. She also wanted to talk today about her hand numbness. She does complain of some carpal tunnel like symptoms with increased numbness at night. She had a right carpal tunnel release done a number of years ago and did see some improvement there. Although she describes her whole hand is being numb, on my sensory exam, the left hand does seem to demarcate somewhere around the ring finger and the palm going over to the thumb so with a positive Tinel sign, I think we might have a diagnosis of carpal tunnel on that side. She also has positive Tinel's in the left hand in hand weakness as well. On the right side, she has a borderline Tinel and the numbness in her right hand is diffuse to sensory testing across all peripheral nerve distributions. Therefore I think it less likely that this is carpal tunnel, but I will double check with a bilateral upper extremity EMG. I will see her back after the EMG is completed. She is interested in having a left carpal tunnel release if the diagnosis can be made on that side. Total amount of time spent in this visit was 20 minutes in discussion of symptoms, cervical MRI imaging results and subsequent plan of care Lenin Clayton MD,PhD [facility] Orders: Orders NE electromyogram (EMG) Today R20.0 - Anesthesia of skin Coding Level of Care Code Est Pt Level 3 (42078) Diagnoses Carpal tunnel syndrome G56.00
== END 2024-01-29 16:13 | disposition home or self-care (01) ==
PROVIDERS: PCP Internal Medicine; Visit Provider Physician Assistant
DX: G56.00 Carpal tunnel syndrome, unspecified upper limb (principal)
CPT/HCPCS: 99213

== ENCOUNTER → 2024-01-29 14:09 | Outpatient (BNVA) | payer MEDICARE, MEDICAID, SELFPAY | PROVIDERS: PCP Internal Medicine; Visit Provider Physician Assistant | DX: G56.00 Carpal tunnel syndrome, unspecified upper limb (principal); R20.0 Anesthesia of skin | CPT/HCPCS: 99212 ==

== ENCOUNTER 2024-03-18 14:36 | Outpatient (REF) | payer MEDICARE, MEDICAID, SELFPAY ==
--- NOTE | 2024-03-18 14:41 | EMG_ITS ---
Chief complaint: Bilateral hand numbness, arm weakness, gait dysfunction History of C 4-[address] Velasquez 2014, C3-[address] Clayton 07/09/2023, Right CTR 2009. Reason for referral: Evaluate for Carpal Tunnel Syndrome Referred by: Lenin HERZOG Procedure done: Bilateral upper extremities NCS/EMG Precautions and/or limitations: Previous cervical fusion-For this reason paraspinal EMG examination deferred, not reliable to show accurate diagnostic evidence evidence The limb temperature was monitored continuously and remained between 32-36 degrees C during the performance of the NCS. Nerve Conduction Studies Anti Sensory Summary Table ?Stim Site NR Onset (ms) Norm Onset (ms) Peak (ms) Norm Peak (ms) O-P Amp (?V) Norm O-P Amp Site1 Site2 Delta-0 (ms) Dist (cm) Jasmeet (m/s) Norm Jasmeet (m/s) Left Median Anti Sensory (2nd Digit) Wrist ? 2.9 3.7 <3.6 26.4 >10 Wrist 2nd Digit 2.9 14.0 48 Right Median Anti Sensory (2nd Digit) Wrist ? 2.8 3.8 <3.6 46.4 >10 Wrist 2nd Digit 2.8 14.0 50 Right Radial Anti Sensory (Thumb) Forearm ? 1.9 2.4 <3.1 24.9 Forearm Thumb 1.9 0.0 Left Ulnar Anti Sensory (5th Digit) Wrist ? 2.4 3.0 <3.7 24.0 >15.0 Wrist 5th Digit 2.4 14.0 58 Right Ulnar Anti Sensory (5th Digit) Wrist ? 2.3 3.4 <3.7 29.7 >15.0 Wrist 5th Digit 2.3 14.0 61 Motor Summary Table ?Stim Site NR Onset (ms) Norm Onset (ms) O-P Amp (mV) Norm O-P Amp iAmp (mV) Amp (1st) (%) Site1 Site2 Delta-0 (ms) Dist (cm) Jasmeet (m/s) Norm Jasmeet (m/s) Left Median Motor (Abd Poll Brev) Wrist ? 4.6 <3.9 3.7 >4.5 4.5 100.0 Elbow Wrist 3.6 17.0 47 >45 Elbow ? 8.2 5.2 6.5 140.5 Right Median Motor (Abd Poll Brev) Wrist ? 4.7 <3.9 2.5 >4.5 3.0 100.0 Elbow Wrist 3.8 19.0 50 >45 Elbow ? 8.5 4.0 4.6 160.0 Left Ulnar Motor (Abd Dig Minimi) Wrist ? 2.3 <3.0 6.7 >5 8.5 100.0 B Elbow Wrist 3.3 18.5 56 >45 B Elbow ? 5.6 5.5 7.1 82.1 A Elbow B Elbow 1.4 10.0 71 >45 A Elbow ? 7.0 5.8 7.5 86.6 Right Ulnar Motor (Abd Dig Minimi) Wrist ? 2.7 <3.0 9.4 >5 11.5 100.0 B Elbow Wrist 3.7 20.0 54 >45 B Elbow ? 6.4 8.1 10.0 86.2 A Elbow B Elbow 1.2 10.0 83 >45 A Elbow ? 7.6 7.5 9.3 79.8 EMG ?Side Muscle Nerve Root Ins Act Fibs Psw Amp Dur Poly Recrt Int Pat Comment Right 1stDorInt Ulnar C8-T1 Nml Nml Nml Nml Nml 0 Nml Complete Right FlexCarRad Median C6-7 Nml Nml Nml Nml Nml 0 Nml Complete Right Biceps Musculocut C5-6 Nml Nml Nml Nml Nml 0 Nml Complete Right Triceps Radial C6-7-8 Nml Nml Nml Incr Incr 0 Nml Complete Right Deltoid Axillary C5-6 Nml Nml Nml Nml Nml 0 Nml Complete Left 1stDorInt Ulnar C8-T1 Incr 1+ 1+ Nml Nml 0 Nml Complete Left FlexCarRad Median C6-7 Nml Nml Nml Nml Nml 0 Nml Complete Left Biceps Musculocut C5-6 Nml Nml Nml Nml Nml 0 Nml Complete Left Triceps Radial C6-7-8 Nml Nml Nml Incr Incr 0 Nml Complete Left Deltoid Axillary C5-6 Nml Nml Nml Nml Nml 0 Nml Complete FINDINGS: Bilateral median motor nerves showed prolonged distal latency, normal amplitude and normal conduction velocity. Evidence of possible Harjinder Analia anastomosis was seen on left side, which is a normal anatomic variant. Bilateral median sensory nerves showed prolonged peak latency. All other nerves tested were within normal. Concentric needle EMG was performed in selected muscles of the bilateral upper extremities. Study revealed signs of electric abnormalities as shown in the table above. Bilateral triceps showed increased duration and amplitude. Very small PSWs seen on left FDI. IMPRESSION: 1. This is an abnormal study. 2. There is electrodiagnostic evidence for bilateral moderate-severe median neuropathy at the wrist, consistent with carpal tunnel syndrome. 3. Chronic reinnervation changes seen on C7/8 innervated muscles, suggesting chronic C7/8 radiculopathy. 4. There is no electrodiagnostic evidence for ulnar neuropathy or brachial plexopathy. Thank you for your kind referral. Gabriela Robertson MD, ANT Board Certified, [place] [employer] and Rehabilitation (ABPMR) Board Certified, [place] [employer] Board of Electrodiagnostic Medicine (ABEM) CODIN [phone] MTDD
== END 2024-03-18 14:37 | disposition home or self-care (01) ==
LOC: HO.NEURO 14:36
PROVIDERS: PCP Internal Medicine; Visit Provider Physician Assistant
DX: R20.0 Anesthesia of skin (principal)
CPT/HCPCS: 95886; 95911

== ENCOUNTER → 2024-03-18 14:41 | Outpatient (BNV) | payer MEDICARE, MEDICAID, SELFPAY | PROVIDERS: PCP Internal Medicine; Visit Provider Physical Medicine & Rehabilitation | DX: G56.03 Carpal tunnel syndrome, bilateral upper limbs (principal) | CPT/HCPCS: 95886; 95911 ==

== ENCOUNTER 2024-03-25 13:17 | Outpatient (AMB) | payer MEDICARE, MEDICAID, SELFPAY ==
--- NOTE | 2024-03-25 13:18 | HO.SPINEOV ---
Intake Visit Reasons: EMG f/u Intake Note: Ms. Arguelles is here today to F/u on the results of her EMG. Ordnance Engineer Required: No Allergies erythromycin base Allergy (Intermediate, Verified 03/25/24 13:19) Shortness of Breath quetiapine [From Seroquel] Allergy (Intermediate, Verified 03/25/24 13:19) Tremors, issue with eye pressure, Increased SI trazodone [TRAZODONE] Allergy (Intermediate, Verified 03/25/24 13:19) Difficulty breathing, shortness of breath Assessment & Plan Assessment & Plan (1) Cervicalgia: Code(s): M54.2 - Cervicalgia Category: Medical (2) Carpal tunnel syndrome: Code(s): G56.00 - Carpal tunnel syndrome, unspecified upper limb Category: Medical Plan Mrs arguelles came into the office today to review her EMG. Please refer to my previous note for the specifics of the problem. She has had numbness of her hands for years, previous right carpal tunnel release done with no improvement. My exam demonstrated signs of median nerve compression so I sent her for an EMG. This revealed that she has bilateral moderate to severe carpal tunnel as well as chronic radiculopathy in the left C7/C8. Her last MRI done here at [place] does show that she has foraminal compression at C7-T1 and she has left arm pain so that would fit with the impingement that we see. She already has neck fusion from C3-C7. She also has chronic neck pain and gait instability. Her last MRI also showed cord signal change in the midcervical regions relating to her old spinal cord compression for which her original ACDF was done. She has multiple reasons to have hand numbness and the EMG reporting moderate to severe carpal tunnel syndrome is a pre-existing diagnosis for her. Since that is getting worse and the numbness in the hand is getting worse consistent with the median nerve distribution, I will talk with Dr. Clayton about whether not he be willing to consider a left carpal tunnel release. I tentatively booked her for May 06. She will stop her aspirin a week before surgery. All pertinent risks and benefits of the surgery were discussed. Also, she reports a fall last week and thinks she might hear some cracking in her neck. So I will send her for an x-ray to check the hardware. Total amount of time spent in this visit was 20 minutes in discussion of symptoms, ordering x-ray imaging and EMG results and subsequent plan of care Lenin Clayton MD,PhD [facility] Orders: Orders XR cervical spine 4V Today M54.2 - Cervicalgia Referrals Spine Surgery Notification G56.00 - Carpal tunnel syndrome, unspecified upper limb Coding Level of Care Code Est Pt Level 3 (19683) Diagnoses Cervicalgia M54.2 Carpal tunnel syndrome G56.00
--- OUTSIDE RECORDS SUMMARY | 2024-03-25 17:09 | XMS_ITS | Encounter Summary ---
Author Organization [facility] Address [address] [place] [address] Care Team Providers Care Desktop Publishing Specialist Name Role Phone Radha Schultz Primary Care Provider [phone] Encounter Details Date Type Department Care Team (Late st Contact Info) Description 10/15/2022 Telephone [facility] Neuro Interventional Radiology [address] [place] [address] Jorgito Lopez MD [address] [place] [address] Social History Tobacco Use Types Packs/Day Years Used Date Smoking Tobacco: Former Cigarettes Q uit: 09/02/2018 Smokeless Tobacco: Never Comments Unknown Sex and Gender Information Value Date Recorded Sex Assigned at Female 11/13/2022 4:37 PM EDT Legal Sex Female 8:32 AM EDT Gender Identity Female 11/13/2022 4:37 PM EDT Sexual Orientation Straight 11/13/2022 4: 37 PM EDT documented as of this encounter Plan of Treatment Not on file documented as of this encounter Visit Diagnoses Not on filedocumented in this encounter Care Teams Desktop Publishing Specialist Relationship Specialty Start Date End Date Radha Schultz [address] [place] [address] [place] [id number] PCP - General Internal Medicine 08/23/21 documented as of this encounter
--- OUTSIDE RECORDS SUMMARY | 2024-03-25 17:09 | XMS_ITS | Clinical Summary ---
Author Organization [facility] Address [address] [place] [address] Care Team Providers Care Mining Helper Name Role Phone Radha Schultz Primary Care Provider [phone] Allergies Active Allergy Reactions Criticality Noted Date Comments Erythromycin Unknown Medium 12/28/2016 Quetiapine Unknown 09/20/2021 Trazodone-Dietary Supp No.8 Unknown Medium 12/29/19 17 Medications clonazePAM (KlonoPIN) 1 mg tablet Take 0.5 mg by mouth as needed. Active DULoxetine DR (CYMBALTA) 30 mg capsule Take 30 mg by mouth once a day. 2 Active fluticasone propionate (FLONASE) 50 mcg/actuation nasal spray Administer into each nostril as needed. 1 Active gabapentin (NEURONTIN) 800 mg tablet Take 800 mg by mouth 3 times a day. 2 Active rosuvastatin (CRESTOR) 5 mg tablet Take 5 mg by mouth every night. 2 Active gabapentin (NEURONTIN) 100 mg capsule Take 100 mg by mouth at bed time. Active aspirin 81 mg EC tablet Take 81 mg by mouth once a day. Active Ventolin HFA 90 mcg/actuation inhaler Inhale 2 puffs by mouth every 6 hours as needed. 3 Active DermOtic Oil 0.01 % drops Place into each ear daily. (1-2 drops) 3 Active triamcinolone acetonide (KENALOG) 0.1% cream Apply topically to the affected area daily as needed. 3 Active cholecalciferol , vitamin D3, (Vitamin D3) 5,000 unit tablet Take by mouth once a day. Active cyanocobalamin, vitamin B-12, 5,000 mcg capsule Take by mouth daily. Active Social History Tobacco Use Types Packs/Day Years Used Date Smoking Tobacco: Former Cigarettes Q uit: 09/02/2018 Smokeless Tobacco: Never Comments Unknown Sex and Gender Information Value Date Recorded Sex Assigned at Female 11/13/2022 4:37 PM EDT Legal Sex Female 8:32 AM EDT Gender Identity Female 11/13/2022 4:37 PM EDT Sexual Orientation Straight 11/13/2022 4: 37 PM EDT Last Filed Vital Signs Vital Sign Reading Time Taken Comments Blood Pressure 142/88 11/14/2022 12:22 PM EDT Pulse 77 11/14/2022 12:22 PM EDT Temperature 35.9 ??C (96.6 ??F) 11/14/2022 12:22 PM E DT Respiratory Rate 18 09/20/2021 2:59 PM EDT Oxygen Saturation 99% 11/14/2022 12:22 PM EDT Inhaled Oxygen Concentration - - Weight 72.1 kg (159 lb) 11/14/2022 12:22 PM EDT Height 162.6 cm (5' 4 ) 11/14/2022 12:22 PM EDT Body Mass Index 27.29 11/14/2022 12:22 PM EDT Plan of Treatment Health Maintenance Due Date Last Done Comments Cologuard 1960 Colon Cancer Screening 1960 Colonoscopy 1958 FOBT / Fit Test 1960 Hepatitis C Screening 1960 Sigmoidoscopy [address] Lung Cancer Screening (Baseline) 01/30/2008 Osteoporosis Screening 01/30/2008 Zoster Vaccines (1 of 2) 01/30/2008 RSV Vaccine (60+ years old and patients) (1 - Risk 60-74 years 1-dose series) 2018 DTaP,Tdap,and Td Vaccines (2 - Td or Tdap) 05/24/2020 05/24/2010 COVID-19 Vaccine (3 - season) 2023 03/05/2021, 06/01/2020 Influenza Vaccine (#1) 2023 , 04/13/2019, 10/24/2014, Additional history exists Alcohol/Substance Use Screening 02/25/2024 Depression Screening and Follow-Up 02/25/2024 Health Care Proxy Review 02/25/2024 Social Drivers of Health Annual Screening 02/25/2024 Pneumococcal Vaccine: 65+ Years Completed 03/11/2022, 08/09/2011 Hepatitis B Vaccines Aged Out No long er eligible based on patient's age to complete this topic Insurance [facility] MEDICAID Care Teams Mining Helper Relationship Specialty Start Date End Date Radha Schultz [address] [place] [address] [place] [address] PCP - General Internal Medicine 08/23/21
--- OUTSIDE RECORDS SUMMARY | 2024-03-25 17:09 | XMS_ITS | Clinical Summary ---
Author Organization [facility] Address [address] [place], [place] [id number] Care Team Providers Care Chicken Handler Name Role Phone Radha Schultz MD Primary Care Provid er Social History Tobacco Use Types Packs/Day Years Used Date Smoking Tobacco: Never Assessed Sex and Gender Information Value Date Recorded Sex Assigned at Not on file Gender Identity Not on file Sexual Orientation Not on file Plan of Treatment Health Maintenance Due Date Last Done Comments Hepatitis C Screening 1958 COVID-19 Vaccine (#1) 1958 Depression Screening 1970 Preventative Health Evaluation 01/30/1976 DTap / Tdap / Td (1 - Tdap) 1977 Colon Cancer Screening (Colonoscopy) 2003 Breast Cancer Screening (Mammogram) 01/30/2008 Shingrix-Zoster Vaccine (1 of 2) 01/30/2008 Fall Risk Assessment 2023 Osteoporosis Screening (DEXA Scan) 2023 Pneumococcal Vaccine (1 of 1 - PCV) 2023 Influenza Vaccine (#1) 2023 RSV Adult > 60+ Yrs or Pregn ant (1 - 1-dose 75+ series) 2033 Hepatitis B Vaccines Aged Out No long er eligible based on patient's age to complete this topic RSV Ped < 20 months Aged Out No longe r eligible based on patient's age to complete this topic Care Teams Chicken Handler Relationship Specialty Start Date End Date Radha Schultz MD [address] [place] [address] , [address] [facility] D/B/A: [facility] [place] [address] PCP - General Internal Medicine 01/14/20
--- OUTSIDE RECORDS SUMMARY | 2024-03-25 17:09 | XMS_ITS | Referral Summary ---
Author Organization [facility] Address [address] [place] [address] Care Team Providers Care Historiographer Name Role Phone Radha Schultz Primary Care Provider [phone] Allergies Active Allergy Reactions Criticality Noted Date [...] 11/14/2022 12:22 PM EDT Plan of Treatment Not on file Insurance [employer] Care Teams Historiographer Relationship Specialty Start Date End Date Radha Schultz [address] [place] [address] [place] [address] PCP - General Internal Medicine 08/23/21
== END 2024-03-25 14:01 | disposition home or self-care (01) ==
PROVIDERS: PCP Internal Medicine; Visit Provider Physician Assistant
DX: M54.2 Cervicalgia (principal); G56.00 Carpal tunnel syndrome, unspecified upper limb
CPT/HCPCS: 99213

== ENCOUNTER 2024-03-25 13:17 | Outpatient (REF) | payer MEDICARE, MEDICAID, SELFPAY ==
--- NOTE | ~2024-03-25 | XR_ITS ---
EXAMINATION: XR CERVICAL SPINE 4-5 VIEWS HISTORY: M54.2 - Cervicalgia COMPARISON: Comparison is made with the prior examination dated 11/10/2023. FINDINGS: AP, and neutral, flexion, and extension lateral views of the cervical spine are submitted. The patient is again noted to be status post anterior interbody fusion at C3-4 as well as anterior fusion of C4-C7 with plate and screws. The hardware is intact. There is no abnormal motion with flexion or extension. There is no prevertebral soft tissue swelling. XR/XR cervical spine 4V IMPRESSION: Status post fusion from C3 to C7. No abnormal motion is seen with flexion or extension. Electronically signed by: Dinesh Wheat MD 03/25/2024 02:38 PM KAL
--- OUTSIDE RECORDS SUMMARY | 2024-03-25 17:53 | XMS_ITS | Clinical Summary ---
Author Organization [facility] Address [address] [place] [address] Care Team Providers Care Stitch Marker Name Role Phone Radha Schultz Primary Care Provider [phone] Allergies Active Allergy Reactions Criticality Noted Date [...] patient's age to complete this topic Insurance [facility] MEDICAID Care Teams Stitch Marker Relationship Specialty Start Date End Date Radha Schultz [address] [place] [address] [place] [address] PCP - General Internal Medicine 08/23/21
--- OUTSIDE RECORDS SUMMARY | 2024-03-25 17:53 | XMS_ITS | Encounter Summary ---
Author Organization [facility] Address [address] [place] [address] Care Team Providers Care Machine Binder Stripper Name Role Phone Radha Schultz Primary Care Provider [phone] Encounter Details Date Type Department Care Team (Late st Contact Info) Description 10/15/2022 Telephone [facility] Neuro Interventional Radiology [address] [place] [address] Jorgito Lopez MD [address] [place] [address] Social History Tobacco Use Types Packs/Day Years [...] on filedocumented in this encounter Care Teams Machine Binder Stripper Relationship Specialty Start Date End Date Radha Schultz [address] [place] [address] [place] [address] PCP - General Internal Medicine 08/23/21 documented as of this encounter
--- OUTSIDE RECORDS SUMMARY | 2024-03-25 17:53 | XMS_ITS | Referral Summary ---
Author Organization [facility] Address [address] [place] [address] Care Team Providers Care Hotel Custodian Name Role Phone Radha Schultz Primary Care Provider [phone] Allergies Active Allergy Reactions Criticality Noted Date [...] Treatment Not on file Insurance [place] [address] Care Teams Hotel Custodian Relationship Specialty Start Date End Date Radha Schultz [address] [place] [address] [place] [address] PCP - General Internal Medicine 08/23/21
--- OUTSIDE RECORDS SUMMARY | 2024-03-25 17:53 | XMS_ITS | Clinical Summary ---
Author Organization [facility] Address [address] [place], [place] [id number] Care Team Providers Care Print Line Inspector Name Role Phone Radha Schultz MD Primary [...] age to complete this topic Care Teams Print Line Inspector Relationship Specialty Start Date End Date Radha Schultz MD [address] [place] [address] , [address] [facility] D/B/A: [facility] [place] [address] PCP - General Internal Medicine 01/14/20
== END 2024-03-25 13:18 | disposition home or self-care (01) ==
LOC: HO.HOSX 13:17
PROVIDERS: PCP Internal Medicine; Visit Provider Physician Assistant
DX: M54.12 Radiculopathy, cervical region (principal); G56.03 Carpal tunnel syndrome, bilateral upper limbs; G95.20 Unspecified cord compression; Z98.1 Arthrodesis status
CPT/HCPCS: 72050; 99212

== ENCOUNTER → 2024-03-25 14:07 | Outpatient (BNV) | payer MEDICARE, MEDICAID, SELFPAY | PROVIDERS: PCP Internal Medicine; Visit Provider Radiology Diagnostic Radiology | DX: M54.2 Cervicalgia (principal); Z98.1 Arthrodesis status | CPT/HCPCS: 72050 ==

== ENCOUNTER 2024-03-26 08:39 | Outpatient (REF) | payer MEDICARE, MEDICAID, SELFPAY ==
--- OUTSIDE RECORDS SUMMARY | 2024-03-29 08:51 | XMS_ITS | Clinical Summary ---
Author Organization [facility] Address [address] [place] [address] Care Team Providers Care Clin Nurse Name Role Phone Radha Schultz Primary Care Provider [phone] Allergies Active Allergy Reactions Criticality Noted Date [...] patient's age to complete this topic Insurance [facility] MEDICAID Care Teams Clin Nurse Relationship Specialty Start Date End Date Radha Schultz [address] [place] [address] [place] [address] PCP - General Internal Medicine 08/23/21
--- OUTSIDE RECORDS SUMMARY | 2024-03-29 08:51 | XMS_ITS | Clinical Summary ---
Author Organization [facility] Address [address] [place], [place] [id number] Care Team Providers Care Rugby League Footballer Name Role Phone Radha Schultz MD Primary [...] age to complete this topic Care Teams Rugby League Footballer Relationship Specialty Start Date End Date Radha Schultz MD [address] [place] [address] , [address] [facility] D/B/A: [facility] [place] [address] PCP - General Internal Medicine 01/14/20
--- OUTSIDE RECORDS SUMMARY | 2024-03-29 08:51 | XMS_ITS | Referral Summary ---
Author Organization [facility] Address [address] [place] [address] Care Team Providers Care Clinical Faculty Name Role Phone Radha Schultz Primary Care Provider [phone] Allergies Active Allergy Reactions Criticality Noted Date [...] on file Insurance [employer] Care Teams Clinical Faculty Relationship Specialty Start Date End Date Radha Schultz [address] [place] [address] [place] [address] PCP - General Internal Medicine 08/23/21
--- OUTSIDE RECORDS SUMMARY | 2024-03-29 08:51 | XMS_ITS | Encounter Summary ---
Author Organization [facility] Address [address] [place] [address] Care Team Providers Care Laundry Operator Wash Room Name Role Phone Radha Schultz Primary Care Provider [phone] Encounter Details Date Type Department Care Team (Late st Contact Info) Description 10/15/2022 Telephone [facility] Neuro Interventional Radiology [address] [place], [place] [id number] Jorgito Lopez MD [address] [place], [place] [id number] Social History Tobacco Use Types Packs/Day Years [...] on filedocumented in this encounter Care Teams Laundry Operator Wash Room Relationship Specialty Start Date End Date Radha Schultz [address] [place] [address] [place] [address] PCP - General Internal Medicine 08/23/21 documented as of this encounter
== END 2024-03-26 08:40 | disposition home or self-care (01) ==
LOC: HO.HOSX 08:39
PROVIDERS: Visit Provider Physician Assistant
DX: Z13.89 Encounter for screening for other disorder (principal)

== ENCOUNTER 2024-04-08 09:41 | Outpatient (AMB) | payer MEDICARE, MEDICAID, SELFPAY ==
[2024-04-08 09:53] VITALS: BP 132/80; BMI 27.6
--- NOTE | 2024-04-08 09:53 | MHC.PC.OV ---
Vital Signs 04/08/24 09:53 Height 5 ft 4 in Weight 161 lb BMI 27.6 BP 132/80 Blood Pressure Location Lt brachial Position Sitting Intake Visit Reasons: 6 months F/U Intake Note: Patient here for a 6 month follow up Assistant Golf Coach Required: No Accompanied by: Self / Same As Patient Allergies erythromycin base Allergy (Intermediate, Verified 04/08/24 10:05) Shortness of Breath quetiapine [From Seroquel] Allergy (Intermediate, Verified 04/08/24 10:05) Tremors, issue with eye pressure, Increased SI trazodone [TRAZODONE] Allergy (Intermediate, Verified 04/08/24 10:05) Difficulty breathing, shortness of breath Medication List - Last Reconciled 04/08/24 by Radha Gee MD aspirin (Adult Aspirin Regimen) 81 mg PO QAM clonazepam 0.5 mg PO BID PRN duloxetine 30 mg PO QAM fluocinolone acetonide oil 0.01% (DermOtic Oil) 5 drps otic (ear) left BID 7 days fluticasone propionate 50 mcg/actuation 2 sprays intranasal Q2D gabapentin 800 mg PO TID gabapentin 100 mg PO TID lisinopril 10 mg PO QAM rosuvastatin 5 mg PO BEDTIME 90 days triamcinolone acetonide 0.1% 1 appl topical DAILY 30 days valacyclovir 1,000 mg PO Q8H 7 days Ventolin HFA 90 mcg/actuation (albuterol sulfate) 2 inhalations inhalation Q6H PRN 30 days NS Tobacco use date assessed: 04/08/24 Fall risk assessment: 1 Fall in past year Last assessed Fall Risk: 04/08/24 Dental Screening Dental Screen Date: 04/08/24 Did you have a dental visit in the last 12 months?: No Did you have a dental problem in the last 6 months where you did not have access to dental care?: No Was dental information given to patient?: Patient has dentist HPI HPI Comments History of Present Illness Details The patient is a 64-year-old female presenting with chronic neck pain and symptoms related to cervical myelopathy. She reported a fusion surgery in August for cervical disc herniation, specifically C7-8, which has not alleviated her symptoms. The patient experiences severe pain radiating from her neck to her head and arms, described as burning and tight, with recent MRI confirming persistence of the issue but advised against further surgery due to potential stiffness. She also suffers from bilateral carpal tunnel syndrome, with more pronounced symptoms on the left side, leading to numbness and dropping objects. The patient describes involvement of all fingers and ongoing cervical myelopathy. Turmeric supplements with black pepper are part of her anti-inflammatory regimen. She has hypertension well controlled with medications. Also has mild major depression follow by Psychiatry and counseling. On statins for elevated cholesterol. Has emphysema and use rescue inhaler as needed. [facility] Medical History (Updated 04/08/24 @ 12:16 by Radha Gee MD) Schatzki's ring of distal esophagus TIA (transient ischemic attack) PTSD (post-traumatic stress disorder) HTN (hypertension) Internal carotid aneurysm Gait disorder Tobacco dependence Emphysema lung Leg weakness Loss of balance Left ear pain Mild recurrent major depression Polyarthralgia Daytime sleepiness Leukopenia De Quervain's disease (tenosynovitis) Anxiety Weight gain Dyslipidemia WILL (obstructive sleep apnea) Postlaminectomy syndrome, cervical Chronic pain syndrome Disc degeneration, lumbar Spondylosis without myelopathy or radiculopathy, lumbar region Surgical History History of esophagogastroduodenoscopy (EGD) H/O colonoscopy Status post lumbar spine surgery for decompression of spinal cord History of fusion of cervical spine History of carpal tunnel release Family History Father Emphysema of lung Mother Stroke Hypertension Diabetes Dementia Brother Bladder cancer Son No problems noted. Daughter No problems noted. 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 1. Little interest or pleasure in doing things: several days 2. Feeling down, depressed, or hopeless: more than half the days 3. Trouble falling or staying asleep, or sleeping too much: nearly every day 4. Feeling tired or having little energy: nearly every day 5. Poor appetite or overeating: not at all 6. Feeling bad about yourself - or that you are a failure or have let yourself or your family down: several days 7. Trouble concentrating on things, such as reading the newspaper or watching television: several days 8. Moving or speaking so slowly that other people could have noticed. Or the opposite - being so fidgety or restless that you have been moving around a lot more than usual: not at all 9. Thoughts that you would be better off or of hurting yourself in some way: not at all Total score: 11 Depression Screening Interpretation: Positive Depression Screening Follow-up: Existing condition, In treatment, Community Mental Health Worker F/U and Follow-up Visit Requested Depression Screening Done: Yes 12795 - PHQ-9 Billing: Yes Source: Developed by Drs. Dinesh Dalton, Angy Pickard, Arcadio Luis and colleagues, with an educational tad from [employer]. Thrive Questionnaire Date Thrive assessed: 04/08/24 I am a: Patient What is your living situation today?: I have a steady place to live Within the past 12 months, did the food you bought not last and you didn't have the money to get more?: Never true Within the past 12 months, did you worry whether your food would run out before you got money to buy more?: Never true Do you have trouble paying for medicines?: No Do you have trouble getting transportation to medical appointments?: No Do you have trouble paying your heating and electricity bill?: No Do you have trouble taking care of your child, family member or friend?: No Do you have trouble with day-to-day activities such as bathing, preparing meals, shopping, managing finances, etc.?: No Are you currently unemployed and looking for a job?: No Are you interested in more education?: No Please select the resources that you would like help with: None Currently or been in a relationship where the following occur: No concerns reported THRIVE Score: 0 AUDIT C Alcohol Use Questionnaire (AUDIT-C) 1. How often do you have a drink containing alcohol?: Never Total Score: 0 Score Reviewed/Action Taken: No STEPHANIE-7 AMB Questionnaire STEPHANIE-7 Date STEPHANIE - 7 assessed: 04/08/24 Feeling nervous, anxious, or on edge: 3 = Nearly every day Not being able to stop or control worryin = Several days Worrying too much about different things: 3 = Nearly every day Trouble relaxin = Nearly every day Being so restless that it is hard to sit still: 0 = Not at all Becoming easily annoyed or irritable: 1 = Several days Feeling afraid as if something awful might happen: 3 = Nearly every day Total STEPHANIE-7 score (0-4 normal; 5-9 mild; 10-14 moderate; 15-21 severe): 14 Source: Developed by Drs. Dinesh Dalton, Angy Pickard, Arcadio Luis and colleagues, with an educational tad from [employer]. STEPHANIE-7 Assessment Billing STEPHANIE-7 Assessment Tool: STEPHANIE-7 Assessment 34307 Review of Systems Const All systems reviewed & are unremarkable except as noted in HPI and below Card Denies chest pain at rest, Denies chest pain with activity, Denies edema, Denies irregular heart rhythm, Denies claudication, Denies dyspnea, Denies dyspnea on exertion, Denies orthopnea, Denies paroxysmal nocturnal dyspnea and Denies slow heart rate Resp Denies cough, Denies dyspnea and Denies dyspnea on exertion GI Denies abdominal pain, Denies change in bowel habits, Denies excessive flatus, Denies nausea and Denies vomiting Physical exam (Primary Care) Vital Signs: Last Vital Signs BP 132/80 04/08/24 09:53 BMI result Body Mass Index 27.6 Tobacco/Smoking Status: Tobacco use Status Tobacco use date assessed 04/08/24 04/08/24 10:00 Patient Tobacco Use Status Former Tobacco user 04/08/24 10:00 Tobacco use type Cigarette 04/08/24 10:00 e-Cigarette/Vaping Use Never Used 04/08/24 10:00 PHQ-9: PHQ-9 Score PHQ-9: Total score 11 04/08/24 10:58 Depression Screening Interpretation: Positive Depression Screening Follow-up: Existing condition, In treatment, Community Mental Health Worker F/U and Follow-up Visit Requested Thrive Assessment: Date of Thrive Assessment Date Thrive assessed 04/08/24 04/08/24 10:00 Currently or been in a relationship where the following occur: No concerns reported Const Limitations: ambulation with walker Resp Effort & Inspection: normal respiratory effort Auscultation: clear to auscultation bilaterally Cardio Jugular venous distension: no JVD Rate: regular rate Rhythm: regular rhythm Heart sounds: S1 normal heart sound present and S2 normal heart sound present Extrem General: Yes full ROM Office Procedures Flu Questionnaire Does the patient have a severe egg allergy?: No Immunizations Fluarix Triv [id number] (PF) 45 mcg (15 mcg x 3)/0.5 mL IM syringe Performing Provider: Radha Gee MD [facility] [place] [facility] Documented (not given) by: ARNULFO Grider on 04/08/24 10:58 Reason Not Given: Patient Refused Coding Level of Care Code Est Pt Level 4 (08427) Complex EM visit Add On G2211 Diagnoses Bilateral carpal tunnel syndrome G56.03 Laterality: bilateral Cervical myelopathy G95.9 Essential hypertension I10 Mild recurrent major depression F33.0 Centrilobular emphysema J43.2 Emphysema type: centrilobular Dyslipidemia E78.5 Additional Codes STEPHANIE-7 Assessment Billing - STEPHANIE-7 Assessment Tool: STEPHANIE-7 Assessment 31258 ([id number]) PHQ-9 - 33025 - PHQ-9 Billing: Yes ([id number]) Time Spent (min) 24 Assessment & Plan Assessment & Plan (1) Carpal tunnel syndrome: Code(s): G56.00 - Carpal tunnel syndrome, unspecified upper limb Category: Medical Qualifiers: Laterality: bilateral Qualified Code(s): G56.03 - Carpal tunnel syndrome, bilateral upper limbs (2) Cervical myelopathy: Code(s): G95.9 - Disease of spinal cord, unspecified Category: Medical (3) Essential hypertension: Code(s): I10 - Essential (primary) hypertension Category: Medical (4) Mild recurrent major depression: Code(s): F33.0 - Major depressive disorder, recurrent, mild Category: Medical (5) Emphysema lung: Code(s): J43.9 - Emphysema, unspecified Category: Medical Qualifiers: Emphysema type: centrilobular Qualified Code(s): J43.2 - Centrilobular emphysema (6) Dyslipidemia: Code(s): E78.5 - Hyperlipidemia, unspecified Category: Medical Plan - Continue gabapentin at 900mg three times daily for neuropathic pain management. - Proceed with planned carpal tunnel surgery on the left hand, followed by the right hand. - Schedule knee evaluation with orthopedics in April, with consideration of recurrent falls. - Conduct endoscopic procedure at the month's end for gastrointestinal evaluation. - Arrange fasting blood work at the next visit, scheduled for September. - Continue current medications including duloxetine, clonazepam, lisinopril, and rosuvastatin. - Reinforce use of turmeric with black pepper based on patient's preference for anti-inflammatory benefits. - Monitor depressive and anxiety symptoms with current therapist and psychiatrist involvement. Patient was informed and verbally consented to the use of an ambient scribe for clinic note documentation during this visit. We discussed the patient's chronic neck pain and the limited options for additional surgical intervention due to potential immobility. She acknowledges needing pain management strategies and lifestyle modification to prevent exacerbation of symptoms. I outlined the plan for upcoming carpal tunnel surgery and orthopedic evaluation for her knee issues, given frequent falls and instability. We discussed nutritional strategies for inflammation management, specifically turmeric with black pepper and incorporating dark berries. She was advised on maintaining her current medication regimen. We reviewed her psychological health management plan, noting engagement with both a therapist and psychiatrist. She understands the need for ongoing monitoring and symptom management. Orders: Orders Comprehensive [employer]. Panel Fast 6 Months E78.5 - Hyperlipidemia, unspecified Influenza [id number] Immunization Today Z23 - Encounter for immunization Lipid Panel 6 Months E78.5 - Hyperlipidemia, unspecified Patient Instructions: - Continue taking gabapentin at the prescribed dose. - Follow up with planned surgeries and consultations. - Maintain current nutrition regime and incorporate recommended foods. - Monitor health symptoms and report any significant changes or worsening. - Continue engagement with therapists and follow their recommendations for managing depression and anxiety. - Prepare for the upcoming endoscopy and arrange for transportation if needed.
--- OUTSIDE RECORDS SUMMARY | 2024-04-08 10:12 | XMS_ITS | Clinical Summary ---
Author Organization [facility] Address [address] [place] [address] Care Team Providers Care Radiation Therapy Technician Name Role Phone Radha Schultz Primary Care Provider [phone] Allergies Active Allergy Reactions Criticality Noted Date [...] of Health Annual Screening 02/25/2024 Pneumococcal Vaccine: 50+ Years Completed 03/11/2022, 08/09/2011 Hepatitis B Vaccines Aged Out No long er eligible based on patient's age to complete this topic Insurance [facility] MEDICAID Care Teams Radiation Therapy Technician Relationship Specialty Start Date End Date Radha Schultz [address] [place] [address] [place] [address] PCP - General Internal Medicine 08/23/21
--- OUTSIDE RECORDS SUMMARY | 2024-04-08 10:12 | XMS_ITS | Clinical Summary ---
Author Organization [facility] Address [address] [place], [place] [id number] Care Team Providers Care Marketing Team Lead Name Role Phone Radha Schultz MD Primary [...] age to complete this topic Care Teams Marketing Team Lead Relationship Specialty Start Date End Date Radha Schultz MD [address] [place] [address] , [address] [facility] D/B/A: [facility] [place] [address] PCP - General Internal Medicine 01/14/20
--- OUTSIDE RECORDS SUMMARY | 2024-04-08 10:12 | XMS_ITS | Referral Summary ---
Author Organization [facility] Address [address] [place] [address] Care Team Providers Care Pet Trainer Name Role Phone Radha Schultz Primary Care Provider [phone] Allergies Active Allergy Reactions Criticality Noted Date [...] on file Insurance [employer] Care Teams Pet Trainer Relationship Specialty Start Date End Date Radha Schultz [address] [place] [address] [place] [address] PCP - General Internal Medicine 08/23/21
--- OUTSIDE RECORDS SUMMARY | 2024-04-08 10:12 | XMS_ITS | Encounter Summary ---
Author Organization [facility] Address [address] [place] [address] Care Team Providers Care Substation Supervisor Name Role Phone Radha Schultz Primary Care Provider [phone] Encounter Details Date Type Department Care Team (Late st Contact Info) Description 10/15/2022 Telephone [facility] Neuro Interventional Radiology [address] [place], [place] [id number] Jorgito Lopez MD [address], [place] [id number] Social History Tobacco Use Types Packs/Day Years [...] on filedocumented in this encounter Care Teams Substation Supervisor Relationship Specialty Start Date End Date Radha Schultz [address] [place] [address] [place] [address] PCP - General Internal Medicine 08/23/21 documented as of this encounter
== END 2024-04-08 10:25 | disposition home or self-care (01) ==
PROVIDERS: PCP Internal Medicine; Visit Provider Internal Medicine
DX: G56.03 Carpal tunnel syndrome, bilateral upper limbs (principal); G95.9 Disease of spinal cord, unspecified; F33.0 Major depressive disorder, recurrent, mild; J43.2 Centrilobular emphysema; I10 Essential (primary) hypertension; E78.5 Hyperlipidemia, unspecified; Z23 Encounter for immunization

== ENCOUNTER → 2024-04-08 09:41 | Outpatient (BNVA) | payer MEDICARE, MEDICAID, SELFPAY | PROVIDERS: PCP Internal Medicine; Visit Provider Internal Medicine | DX: G56.03 Carpal tunnel syndrome, bilateral upper limbs (principal); G95.9 Disease of spinal cord, unspecified; I10 Essential (primary) hypertension; F33.0 Major depressive disorder, recurrent, mild; J43.2 Centrilobular emphysema; E78.5 Hyperlipidemia, unspecified | CPT/HCPCS: 96127; 99212 ==

== ENCOUNTER 2024-04-21 10:44 | Day surgery (SDC) | payer MEDICARE, MEDICAID, SELFPAY ==
--- NOTE | 2023-09-02 13:29 | P.CONAN_ITS ---
HPI - Anesthesia Eval Consult details Narrative: 63yo F Upper Endoscopy PMFSH Active Problems Active Problems: All Active Problems S/P cervical spinal fusion (Acute) Pre-op evaluation (Acute) Cervical myelopathy (Acute) Osteoarthritis of lumbar spine (Acute) Essential hypertension (Acute) History of esophageal stricture (Acute) Dysphagia (Acute) Dyspnea (Acute) Left wrist pain (Acute) Lumbar radiculopathy (Acute) Screening for cervical cancer (Acute) Tick bite (Acute) Aneurysm of internal carotid artery (Acute) Pulmonary nodules (Acute) Pulmonary nodule less than 6 cm determined by computed tomography of lung (Acute) UTI (urinary tract infection) (Acute) Physical exam (Acute) Cervicalgia (Acute) Internal carotid aneurysm (Acute) Current smoker (Acute) Pulmonary nodule (Acute) Right wrist pain (Acute) Allergic rhinitis (Acute) Tick bite of back (Acute) Leg cramps, sleep related (Acute) Insomnia (Acute) Encounter for annual physical exam (Acute) Gait disorder (Acute) Tobacco dependence (Acute) Emphysema lung (Acute) Leg weakness (Acute) Loss of balance (Acute) Left ear pain (Acute) Mild recurrent major depression (Acute) Polyarthralgia (Acute) Daytime sleepiness (Acute) Leukopenia (Acute) De Quervain's disease (tenosynovitis) (Acute) Anxiety (Acute) Weight gain (Acute) Dyslipidemia (Acute) WILL (obstructive sleep apnea) (Acute) Postlaminectomy syndrome, cervical (Acute) Chronic pain syndrome (Acute) Disc degeneration, lumbar (Acute) Spondylosis without myelopathy or radiculopathy, lumbar region (Acute) Past Medical History Medical History (Updated 06/26/23 @ 13:56 by Rekha Rossi RN) Schatzki's ring of distal esophagus TIA (transient ischemic attack) PTSD (post-traumatic stress disorder) HTN (hypertension) Internal carotid aneurysm Gait disorder Tobacco dependence Emphysema lung Leg weakness Loss of balance Left ear pain Mild recurrent major depression Polyarthralgia Daytime sleepiness Leukopenia De Quervain's disease (tenosynovitis) Anxiety Weight gain Dyslipidemia WILL (obstructive sleep apnea) Postlaminectomy syndrome, cervical Chronic pain syndrome Disc degeneration, lumbar Spondylosis without myelopathy or radiculopathy, lumbar region Family History Family History Father Emphysema of lung Mother Stroke Hypertension Diabetes Brother Bladder cancer Son No problems noted. Daughter No problems noted. 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 to a significant other at home: Yes (mother-has dementia) Do you presently have visiting nurse or other home services: No Alcohol intake: never Patient Tobacco Use Status: Former Tobacco user Tobacco use type: Cigarette Cigarettes Per Day: 4 Years Smoked: 6 e-Cigarette/Vaping Use: Never Used Second Hand Smoke Exposure: Yes service: No Current occupational status: unemployed 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 Cognitive needs: Yes Hearing needs: No Vision needs: Yes Meds Allergies Allergy/AdvReac Type Severity Reaction Status Date / Time erythromycin base Allergy Intermediate Shortness Verified 06/09/23 12:49 of Breath quetiapine [From Seroquel] Allergy Intermediate Tremors, Verified 06/09/23 12:49 issue with eye pressure, Increased SI trazodone [TRAZODONE] Allergy Intermediate Difficulty Verified 06/26/23 13:56 breathing, shortness of breath Home Medications ?Medication ?Instructions ?Recorded ?Confirmed ?Last Taken ?Type clonazepam 0.5 mg tablet 0.5 mg PO BID PRN Anxiety 01/06/20 06/25/23 07/09/23 06:15 History acetaminophen 325 mg tablet 650 mg PO Q4H PRN Pain 01/17/21 07/09/23 07/02/23 History aspirin 81 mg tablet,delayed 81 mg PO QAM 03/08/21 07/09/23 07/02/23 History release (Adult Aspirin Regimen) gabapentin 800 mg tablet 800 mg PO TID 05/14/22 06/25/23 07/09/23 06:15 History duloxetine 30 mg capsule,delayed 30 mg PO QAM 10/01/22 06/26/23 07/02/23 History release gabapentin 100 mg capsule 100 mg PO TID 05/15/23 06/25/23 07/09/23 06:15 History fluticasone propionate 50 2 spray intranasal Q2D 06/26/23 06/26/23 07/02/23 History mcg/actuation nasal spray,suspension Exam Pertinent Lab Results Pertinent Lab Results: Laboratory Tests 06/11/23 07:10 WBC 6.7 Hgb 13.5 Hct 40.4 Plt Count 258 Sodium 141 Potassium 4.3 Chloride 105 Carbon Dioxide 28 BUN 14 Creatinine 0.70 Narrative Narrative: MR angio head wo con 2022 IMPRESSION: 1. No acute intracranial abnormalities. 2. Mild underlying microangiopathy. 3. 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 4. Otherwise, normal MRA of the head. Assessment and Plan Assessment Anesthesia Assessment: Chart Reviewed Final Anesthetic Review Family History of Problems with Anesthesia: No History of Problems with Anesthesia: No
--- NOTE | 2024-04-20 09:33 | HO.ANESPROP2 ---
Documented by User: Marcia Schroeder NP 04/20/24 09:34 HPI - Anesthesia Eval Consult details Narrative: 63yo F for s/p Ant Cerv Discectomy w/ fusion 06/2023 with [place] PCP and Pulmo cleared prior quit smoking. 05/2023 / COPD. Ventolin ~ 1 x daily. 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 Proposed angiogram for further eval. [facility] Active Problems Active Problems: All Active Problems Carpal tunnel syndrome (Acute) Bilateral hand numbness (Acute) Herpes zoster (Acute) UTI (urinary tract infection) (Acute) Right knee pain (Acute) Left knee pain (Acute) S/P cervical spinal fusion (Acute) Pre-op evaluation (Acute) Cervical myelopathy (Acute) Osteoarthritis of lumbar spine (Acute) Essential hypertension (Acute) History of esophageal stricture (Acute) Dysphagia (Acute) Dyspnea (Acute) Left wrist pain (Acute) Lumbar radiculopathy (Acute) Screening for cervical cancer (Acute) Tick bite (Acute) Aneurysm of internal carotid artery (Acute) Pulmonary nodules (Acute) Pulmonary nodule less than 6 cm determined by computed tomography of lung (Acute) UTI (urinary tract infection) (Acute) Physical exam (Acute) Cervicalgia (Acute) Internal carotid aneurysm (Acute) Current smoker (Acute) Pulmonary nodule (Acute) Right wrist pain (Acute) Allergic rhinitis (Acute) Tick bite of back (Acute) Leg cramps, sleep related (Acute) Insomnia (Acute) Encounter for annual physical exam (Acute) Gait disorder (Acute) Tobacco dependence (Acute) Emphysema lung (Acute) Leg weakness (Acute) Loss of balance (Acute) Left ear pain (Acute) Mild recurrent major depression (Acute) Polyarthralgia (Acute) Daytime sleepiness (Acute) Leukopenia (Acute) De Quervain's disease (tenosynovitis) (Acute) Anxiety (Acute) Weight gain (Acute) Dyslipidemia (Acute) WILL (obstructive sleep apnea) (Acute) Postlaminectomy syndrome, cervical (Acute) Chronic pain syndrome (Acute) Disc degeneration, lumbar (Acute) Spondylosis without myelopathy or radiculopathy, lumbar region (Acute) Past Medical History Medical History Schatzki's ring of distal esophagus TIA (transient ischemic attack) PTSD (post-traumatic stress disorder) HTN (hypertension) Internal carotid aneurysm Gait disorder Tobacco dependence Emphysema lung Leg weakness Loss of balance Left ear pain Mild recurrent major depression Polyarthralgia Daytime sleepiness Leukopenia De Quervain's disease (tenosynovitis) Anxiety Weight gain Dyslipidemia WILL (obstructive sleep apnea) Postlaminectomy syndrome, cervical Chronic pain syndrome Disc degeneration, lumbar Spondylosis without myelopathy or radiculopathy, lumbar region Family History Family History Father Emphysema of lung Mother Stroke Hypertension Diabetes Dementia Brother Bladder cancer Son No problems noted. Daughter No problems noted. Sister Breast cancer Family history of problems with anesthesia: No Surgical History Surgical History History of esophagogastroduodenoscopy (EGD) H/O colonoscopy Status post lumbar spine surgery for decompression of spinal cord History of fusion of cervical spine History of carpal tunnel release History of Problems with Anesthesia: No Social History Social History Household Members Other:: mother w/dementia Housing: House Are you a primary in home caregiver to a significant other at home: Yes Do you presently have visiting nurse or other home services: No Alcohol intake: never Patient Tobacco Use Status: Current someday Tobacco user Tobacco use type: Cigarette Cigarettes Per Day: 2 Years Smoked: 6 e-Cigarette/Vaping Use: Never Used Second Hand Smoke Exposure: Yes Use of substances other than those prescribed or required for medical reasons: No Have you been hit, kicked, punched, or otherwise hurt by someone within the past year? 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 Cognitive needs: Yes Hearing needs: No Vision needs: Yes Meds Allergies Allergy/AdvReac Type Severity Reaction Status Date / Time erythromycin base Allergy Intermediate Shortness Verified 04/21/24 11:19 of Breath quetiapine [From Seroquel] Allergy Intermediate Tremors, Verified 04/21/24 11:19 issue with eye pressure, Increased SI trazodone [TRAZODONE] Allergy Intermediate Difficulty Verified 04/21/24 11:19 breathing, shortness of breath Home Medications ?Medication ?Instructions ?Recorded ?Confirmed ?Last Taken ?Type clonazepam 0.5 mg tablet 0.5 mg PO BID PRN Anxiety 01/06/20 04/21/24 04/21/24 History aspirin 81 mg tablet,delayed 81 mg PO QAM 03/08/21 04/08/24 07/02/23 History release (Adult Aspirin Regimen) gabapentin 800 mg tablet 800 mg PO TID 05/14/22 04/21/24 04/21/24 History duloxetine 30 mg capsule,delayed 30 mg PO QAM 10/01/22 04/21/24 04/21/24 History release gabapentin 100 mg capsule 100 mg PO TID 05/15/23 04/21/24 04/21/24 History fluticasone propionate 50 2 spray intranasal Q2D 06/26/23 04/08/24 07/02/23 History mcg/actuation nasal spray,suspension Exam Pertinent Lab Results Pertinent Lab Results: Laboratory Tests 06/11/23 07:10 WBC 6.7 Hgb 13.5 Hct 40.4 Plt Count 258 Sodium 141 Potassium 4.3 Chloride 105 Carbon Dioxide 28 BUN 14 Creatinine 0.70 Narrative Narrative: EKG 05/2023 Vent. Rate : 068 BPM Atrial Rate : 068 BPM P-R Int : 170 ms QRS Dur : 066 ms QT Int : 398 ms P-R-T Axes : 012 -47 010 degrees QTc Int : 423 ms Normal sinus rhythm Left axis deviation Inferior infarct (cited on or before 05-DEC-2022) Abnormal ECG When compared with ECG of 05-DEC-2022 12:52, Minimal criteria for Anterior infarct are no longer Present ECHO 05/2023 Conclusions: - The left ventricular systolic function is normal. The calculated ejection fraction is 64% by biplane method. - No obvious valvular pathology seen on this study. Head MRA 2022 MR angio head wo con IMPRESSION: 1. No acute intracranial abnormalities. 2. Mild underlying microangiopathy. 3. 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 4. Otherwise, normal MRA of the head. Airway Mallampati Class: II TM Dist: >3cm Neck ROM: Poor Loose/Missing/Broken Teeth: Yes (Loose and broken teeth throughout. Permanent bridge on top) Assessment and Plan Assessment Anesthesia Assessment: Chart Reviewed Final Anesthetic Review Family History of Problems with Anesthesia: No History of Problems with Anesthesia: No Documented by User: Vanessa Atkins MD 04/21/24 13:12 [facility] Past Medical History Medical History Schatzki's ring of distal esophagus TIA (transient ischemic attack) PTSD (post-traumatic stress disorder) HTN (hypertension) Internal carotid aneurysm Gait disorder Tobacco dependence Emphysema lung Leg weakness Loss of balance Left ear pain Mild recurrent major depression Polyarthralgia Daytime sleepiness Leukopenia De Quervain's disease (tenosynovitis) Anxiety Weight gain Dyslipidemia WILL (obstructive sleep apnea) Postlaminectomy syndrome, cervical Chronic pain syndrome Disc degeneration, lumbar Spondylosis without myelopathy or radiculopathy, lumbar region Family History Family History Father Emphysema of lung Mother Stroke Hypertension Diabetes Dementia Brother Bladder cancer Son No problems noted. Daughter No problems noted. Sister Breast cancer Surgical History Surgical History History of esophagogastroduodenoscopy (EGD) H/O colonoscopy Status post lumbar spine surgery for decompression of spinal cord History of fusion of cervical spine History of carpal tunnel release Social History Social History Household Members Other:: mother w/dementia Housing: House Are you a primary in home caregiver to a significant other at home: Yes Do you presently have visiting nurse or other home services: No Alcohol intake: never Patient Tobacco Use Status: Current someday Tobacco user Tobacco use type: Cigarette Cigarettes Per Day: 2 Years Smoked: 6 e-Cigarette/Vaping Use: Never Used Second Hand Smoke Exposure: Yes Use of substances other than those prescribed or required for medical reasons: No Have you been hit, kicked, punched, or otherwise hurt by someone within the past year? 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 Cognitive needs: Yes Hearing needs: No Vision needs: Yes Meds Allergies Allergy/AdvReac Type Severity Reaction Status Date / Time erythromycin base Allergy Intermediate Shortness Verified 04/21/24 11:19 of Breath quetiapine [From Seroquel] Allergy Intermediate Tremors, Verified 04/21/24 11:19 issue with eye pressure, Increased SI trazodone [TRAZODONE] Allergy Intermediate Difficulty Verified 04/21/24 11:19 breathing, shortness of breath Home Medications ?Medication ?Instructions ?Recorded ?Confirmed ?Last Taken ?Type clonazepam 0.5 mg tablet 0.5 mg PO BID PRN Anxiety 01/06/20 04/21/24 04/21/24 History aspirin 81 mg tablet,delayed 81 mg PO QAM 03/08/21 04/08/24 07/02/23 History release (Adult Aspirin Regimen) gabapentin 800 mg tablet 800 mg PO TID 05/14/22 04/21/24 04/21/24 History duloxetine 30 mg capsule,delayed 30 mg PO QAM 10/01/22 04/21/24 04/21/24 History release gabapentin 100 mg capsule 100 mg PO TID 05/15/23 04/21/24 04/21/24 History fluticasone propionate 50 2 spray intranasal Q2D 06/26/23 04/08/24 07/02/23 History mcg/actuation nasal spray,suspension Assessment and Plan Assessment Anesthesia Assessment: Anesthesia Plan Discussed Final Anesthetic Review NPO: Yes ASA Class: III Final Preanesthetic Review: No Changes in Pt Med Stat, Meds/Allgs Chart Reviewed, Consent Obtained/Reviewed, Anes Risks/Benef Reviewed and DNR Form (If Appl.) Patient Risk: Intermediate Procedure Risk: Low Anesthetic Plan Anesthetic Plan: TIVA Disposition: Standard PACU
[2024-04-21 11:22] VITALS: BP 128/67; PULSE 81; RESP 14; TEMP 36.7; O2SAT 99; BMI 27.2
--- NOTE | 2024-04-21 12:08 | MHC.SHP ---
Pre-Procedural Eval Section A - 24 Hr Update-Section A only Date of Service: 04/21/24 Section B - Complete if H&P > 30 days Chief Complaint: Aphagia Relevant Family History (Specify if Yes): No Relevant Social History: None Present Medications: see Short Stay Collaborative assessment Medical History: Significant History (WILL - sleep study negative COPD High cholesterol Hypertension Smoker Allergic rhinitis Carotid aneurysm Depression/insomnia/anxiety Degenerative disc disease of the cervical spine with chronic pain Post-laminectomy syndrome-cervical Lumbar spondylosis De Quervain's tenosynovitis/polyarthralg) History of Previous Operations: Relevant previous surgery/procedure and date(s) (Lumbar spine decompression surgery Cervical spinal fusion Right carpal tunnel release ) Allergies: Allergies Allergy/AdvReac Type Severity Reaction Status Date / Time erythromycin base Allergy Intermediate Shortness Verified 04/21/24 11:19 of Breath quetiapine [From Seroquel] Allergy Intermediate Tremors, Verified 04/21/24 11:19 issue with eye pressure, Increased SI trazodone [TRAZODONE] Allergy Intermediate Difficulty Verified 04/21/24 11:19 breathing, shortness of breath Review of Systems Sugical H&P ROS: Negative: Constitution, Cardiovascular, Respiratory, Neurological, Psychiatric, Hem-Onc, Allergic/Immunologic, Gastrointestinal, Genitourinary, Musculoskeletal, Integumentary, Endocrine and Eyes/Ears/Nose/Throat Exam Surgical H&P Exam: Normal: HEENT, Normal: Heart, Normal: Lungs, Normal: Extremities, Normal: Abdomen, Normal: Skin and Normal: Neurological Plan Diagnosis/Plan: Unchanged I have reviewed the history and physical and performed a pertinent physical examination on my patient. No changes have occurred unless specified. Time Spent With Patient Time: Total time managing care of this patient today ____ minutes.
--- NOTE | 2024-04-21 13:18 | W.PM.OPN ---
Operative Note Operative Note Date of Service: 04/21/24 Narrative: Procedure Description: EGD Indication: dysphagia Anesthesia: MAC FLEXIBLE TRANSORAL UPPER GASTROINTESTINAL ENDOSCOPY UPPER ENDOSCOPY Consent: Indications for the procedure and potential complications of bleeding, perforation, reaction to medications and missed diagnosis were discussed with the patient and informed consent was obtained. Instrument: Olympus GIF H 190 J mid size upper endoscope Monitoring: Vital signs and clinical assessment, continuous EKG monitoring, Pulse oximetry, Carbon Dioxide monitoring and blood pressure monitoring were done throughout the procedure. Procedure: The patient was placed in the left lateral decubitis position and pre-procedure medications were administered and a bite block was placed. The endoscope was inserted into the mouth and advanced under direct vision to the third part of duodenum. A careful inspection was made as the upper endoscope was withdrawn including a retroflexed examination of the proximal stomach; Findings and interventions are described below. Findings: Larynx:normal Esophagus: GE junction at 38 cm, diaphragm hiatus at 38 cm, schatzki ring noted with mild esophagitis, balloon dilation done to 20 mm at UES and LES--no tears seen Stomach: erosive gastritis at the antrum . Biopsies were obtained. Grade 2 flap valve on retroflexed examination of the cardia. Duodenum: mild erythema Intervention: Biopsies as noted above, balloon dilation Impression/Findings: erosive gastritis duodenitis esophagitis schatzki ring PLAN: check if taking PPI or H2B GERD precautions if H pylori pos then treat
[2024-04-21 13:27] VITALS: BP 113/62; PULSE 66; RESP 14; TEMP 36.6; O2SAT 98
[2024-04-21 13:42] VITALS: BP 118/81; PULSE 63; RESP 12; O2SAT 97
[2024-04-21 13:58] VITALS: BP 139/73; PULSE 66; RESP 14; O2SAT 97
== END 2024-04-21 14:29 | disposition home or self-care (01) ==
PROVIDERS: PCP Internal Medicine; Visit Provider Internal Medicine Gastroenterology
PROC: 0DJ08ZZ Inspection of Upper Intestinal Tract, Via Natural or Artificial Opening Endoscopic (ICD-10-PCS; CPT 43235; principal; 2024-04-21 13:00)
DX: R13.10 Dysphagia, unspecified (principal); K29.60 Other gastritis without bleeding; K31.7 Polyp of stomach and duodenum; K29.80 Duodenitis without bleeding; K22.2 Esophageal obstruction; K44.9 Diaphragmatic hernia without obstruction or gangrene; I72.0 Aneurysm of carotid artery; I10 Essential (primary) hypertension; E78.00 Pure hypercholesterolemia, unspecified; J44.9 Chronic obstructive pulmonary disease, unspecified; J30.9 Allergic rhinitis, unspecified; M65.4 Radial styloid tenosynovitis [de Quervain]; M25.50 Pain in unspecified joint; F33.0 Major depressive disorder, recurrent, mild; R26.9 Unspecified abnormalities of gait and mobility; Z86.73 Personal history of transient ischemic attack (TIA), and cerebral infarction without residual deficits; M96.1 Postlaminectomy syndrome, not elsewhere classified; Z79.82 Long term (current) use of aspirin; Z79.51 Long term (current) use of inhaled steroids; Z79.899 Other long term (current) drug therapy; Z98.1 Arthrodesis status; Z98.890 Other specified postprocedural states; Z88.1 Allergy status to other antibiotic agents; Z88.5 Allergy status to narcotic agent; Z88.8 Allergy status to other drugs, medicaments and biological substances; F17.210 Nicotine dependence, cigarettes, uncomplicated; Z56.0 Unemployment, unspecified
CPT/HCPCS: 43249; 43239; 88305; 88313; 88342; C1726; J2003; J2704

== ENCOUNTER → 2024-04-21 10:44 | Outpatient (BNV) | payer MEDICARE, MEDICAID, SELFPAY | PROVIDERS: PCP Internal Medicine; Visit Provider Internal Medicine Gastroenterology | DX: K22.2 Esophageal obstruction (principal); K20.90 Esophagitis, unspecified without bleeding; K29.70 Gastritis, unspecified, without bleeding; K29.80 Duodenitis without bleeding | CPT/HCPCS: 43239; 43249 ==

== ENCOUNTER 2024-04-28 08:19 | Outpatient (REF) | payer MEDICARE, MEDICAID, SELFPAY ==
--- NOTE | ~2024-04-28 | XR_ITS ---
CLINICAL HISTORY: M25.569 - Pain in unspecified knee 1 view right knee Comparison: DX - XR KNEE LT 2V - 04/28/24 13:36 EST Findings: No fracture or malalignment. No significant patellofemoral osteoarthritis. IMPRESSION: No acute findings. This document has been electronically signed by: Mendez Fishman DO on 04/30/2024 12:59:05
--- NOTE | ~2024-04-28 | XR_ITS ---
CLINICAL HISTORY: M25.562 - Pain in left knee AP bilateral knees standing and sunrise view of the left knee Comparison: None Findings: Right knee: No fracture, malalignment, or significant osteoarthritis. Left knee: No fracture, malalignment, or significant osteoarthritis. IMPRESSION: No acute findings. This document has been electronically signed by: Mendez Fishman DO on 04/30/2024 12:59:58
--- OUTSIDE RECORDS SUMMARY | 2024-04-28 08:46 | XMS_ITS | Referral Summary ---
Author Organization [facility] Address [address] [place] [address] Care Team Providers Care Corsetier Name Role Phone Radha Schultz Primary Care Provider [phone] Allergies Active Allergy Reactions Criticality Noted Date [...] on file Insurance [employer] Care Teams Corsetier Relationship Specialty Start Date End Date Radha Schultz [address] [place] [address] [place] [address] PCP - General Internal Medicine 08/23/21
--- OUTSIDE RECORDS SUMMARY | 2024-04-28 08:46 | XMS_ITS | Clinical Summary ---
Author Organization [facility] Address [address] [place] [address] Care Team Providers Care Conference Reservationist Name Role Phone Radha Schultz Primary Care Provider [phone] Allergies Active Allergy Reactions Criticality Noted Date [...] patient's age to complete this topic Insurance [facility] MEDICAID Care Teams Conference Reservationist Relationship Specialty Start Date End Date Radha Schultz [address] [place] [address] [place] [address] PCP - General Internal Medicine 08/23/21
--- OUTSIDE RECORDS SUMMARY | 2024-04-28 08:46 | XMS_ITS | Clinical Summary ---
Author Organization [facility] Address [address] [place], [place] [id number] Care Team Providers Care Supervisor Soldering Name Role Phone Radha Schultz MD Primary [...] age to complete this topic Care Teams Supervisor Soldering Relationship Specialty Start Date End Date Radha Schultz MD [address] [place] [address] , [address] [facility] D/B/A: [facility] [place] [address] PCP - General Internal Medicine 01/14/20
--- OUTSIDE RECORDS SUMMARY | 2024-04-28 08:46 | XMS_ITS | Encounter Summary ---
Author Organization [facility] Address [address] [place] [address] Care Team Providers Care Stencil Typist Name Role Phone Radha Schultz Primary Care Provider [phone] Encounter Details Date Type Department Care Team (Late st Contact Info) Description 10/15/2022 Telephone [facility] Neuro Interventional Radiology [address] [place], [place] [phone] Jorgito Lopez MD [address] [place], [place] [phone] Social History Tobacco Use Types Packs/Day Years [...] on filedocumented in this encounter Care Teams Stencil Typist Relationship Specialty Start Date End Date Radha Schultz [address] [place] [address] [place] [address] PCP - General Internal Medicine 08/23/21 documented as of this encounter
== END 2024-04-28 08:20 | disposition home or self-care (01) ==
LOC: HO.HOSX 08:19
PROVIDERS: Visit Provider Physician Assistant
DX: M25.562 Pain in left knee (principal); M25.561 Pain in right knee; M17.0 Bilateral primary osteoarthritis of knee
CPT/HCPCS: 73560; 99202

== ENCOUNTER 2024-04-28 13:28 | Outpatient (AMB) | payer MEDICARE, MEDICAID, SELFPAY ==
--- NOTE | 2024-04-28 13:46 | A.OFFVIS_ITS ---
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 Patient was seen by her PCP for bilateral knee pain and was referred to orthopedics due to her pain and recurrent falls. Patient reports her right knee is the worse and is also giving out causing her to fall. States her symptoms have been present for over a year and started in her left knee. Her pain is located around her knee cap and radiates to the posterior aspect of knee and down her leg. At times her pain becomes severe and she is unable to move her leg. States prolong standing causes an increase of pain. Hx of neuropathy. No previous tx. 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 She states the right knee gives out and she falls. She does have neuropathy. No h/o DM. She does have a history of cervical fusion with Dr. Harden. She also has spinal stenosis in the lumbar region which does affect her gait pattern. She ambulates with a walker because she feels unsteady on her feet. [facility] Medical History Schatzki's ring of distal esophagus TIA (transient ischemic attack) PTSD (post-traumatic stress disorder) HTN (hypertension) Internal carotid aneurysm Gait disorder Tobacco dependence Emphysema lung Leg weakness Loss of balance Left ear pain Mild recurrent major depression Polyarthralgia Daytime sleepiness Leukopenia De Quervain's disease (tenosynovitis) Anxiety Weight gain Dyslipidemia WILL (obstructive sleep apnea) Postlaminectomy syndrome, cervical Chronic pain syndrome Disc degeneration, lumbar Spondylosis without myelopathy or radiculopathy, lumbar region Surgical History History of esophagogastroduodenoscopy (EGD) H/O colonoscopy Status post lumbar spine surgery for decompression of spinal cord History of fusion of cervical spine History of carpal tunnel release Family History Father Emphysema of lung Mother Stroke Hypertension Diabetes Dementia Brother Bladder cancer Son No problems noted. Daughter No problems noted. 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 She does have full range of motion with crepitus bilaterally. She has medial joint line tenderness right greater than left. Calf supple and nontender neurovascularly intact. Quality Reporting (2020) Adult ([facility] 138/04/17/68) Smoking risk assessment performed?: Yes Patient Tobacco Use Status: Current someday Tobacco user Results Reviewed Results Reviewed: X-rays of both knees obtained in the office today and reviewed by me show lateralization of the patella with arthritic changes. Mild medial compartment OA. Assessment & Plan Assessment & Plan (1) Bilateral primary osteoarthritis of knee: Code(s): M17.0 - Bilateral primary osteoarthritis of knee Category: Medical Plan: We discussed options today which include physical therapy which she is not interested in at this time. I did give her a handout of exercises. She is interested in a knee brace for stability when walking so I did give her a stabilizing knee brace in the office today. If symptoms persist or worsen she will contact our office to discuss cortisone injections otherwise follow up as needed. Orders: Orders XR knee RT 2V Today M25.569 - Pain in unspecified knee XR knee LT 2V Today M25.562 - Pain in left knee Coding Level of Care Code New Pt Level 3 (37628) Complex EM visit Add On G2211 Diagnoses Bilateral primary osteoarthritis of knee M17.0
[2024-04-28 13:54] VITALS: BMI 25.7
--- OUTSIDE RECORDS SUMMARY | 2024-04-28 16:06 | XMS_ITS | Clinical Summary ---
Author Organization [facility] Address [address] [place] [address] Care Team Providers Care Advertisement Compositor Name Role Phone Radha Schultz Primary Care Provider [phone] Allergies Active Allergy Reactions Criticality Noted Date [...] patient's age to complete this topic Insurance [facility] MEDICAID Care Teams Advertisement Compositor Relationship Specialty Start Date End Date aRdha Schultz [address] [place] [address] [place] [address] PCP - General Internal Medicine 08/23/21
--- OUTSIDE RECORDS SUMMARY | 2024-04-28 16:06 | XMS_ITS | Encounter Summary ---
Author Organization [facility] Address [address] [place] [address] Care Team Providers Care Awning Frame Maker Name Role Phone Radha Schultz Primary Care Provider [phone] Encounter Details Date Type Department Care Team (Late st Contact Info) Description 10/15/2022 Telephone [facility] Neuro Interventional Radiology [address] [place], [place] [phone] Jorgito Lopez MD [address] [place], [place] [phone] Social History Tobacco Use Types Packs/Day Years [...] on filedocumented in this encounter Care Teams Awning Frame Maker Relationship Specialty Start Date End Date Radha Schultz [address] [place] [address] [place] [address] PCP - General Internal Medicine 08/23/21 documented as of this encounter
--- OUTSIDE RECORDS SUMMARY | 2024-04-28 16:06 | XMS_ITS | Clinical Summary ---
Author Organization [facility] Address [address] [place], [place] [id number] Care Team Providers Care Ad Copy Writer Name Role Phone Radha Schultz MD Primary [...] age to complete this topic Care Teams Ad Copy Writer Relationship Specialty Start Date End Date Radha Schultz MD [address] [place] [address] , [address] [facility] Physician Associ D/B/A: [facility] [place] [address] PCP - General Internal Medicine 01/14/20
--- OUTSIDE RECORDS SUMMARY | 2024-04-28 16:06 | XMS_ITS | Referral Summary ---
Author Organization [facility] Address [address] [place] [address] Care Team Providers Care Application Integration Specialist Name Role Phone Radha Schultz Primary Care Provider [phone] Allergies Active Allergy Reactions Criticality Noted Date [...] on file Insurance [employer] Care Teams Application Integration Specialist Relationship Specialty Start Date End Date Radha Schultz [address] [place] [address] [place] [address] PCP - General Internal Medicine 08/23/21
== END 2024-04-28 14:46 | disposition home or self-care (01) ==
PROVIDERS: PCP Internal Medicine; Visit Provider Physician Assistant
DX: M17.0 Bilateral primary osteoarthritis of knee (principal)
CPT/HCPCS: 99203

== ENCOUNTER → 2024-04-28 13:36 | Outpatient (BNV) | payer MEDICARE, MEDICAID, SELFPAY | PROVIDERS: Visit Provider Radiology Diagnostic Radiology | DX: M25.561 Pain in right knee (principal); M25.562 Pain in left knee | CPT/HCPCS: 73560 ==

== ENCOUNTER 2024-05-06 09:17 | Day surgery (SDC) | payer MEDICARE, MEDICAID, SELFPAY ==
[2024-05-06 09:48] VITALS: BP 108/65; PULSE 61; RESP 18; TEMP 36.8; O2SAT 98; BMI 27.6
--- NOTE | 2024-05-06 09:53 | PC.NURSE ---
Per Dr. Clayton, do not administer PO and/or IV medications for local procedure. MD at bedside w/pt.
--- NOTE | 2024-05-06 09:53 | MHC.SHP ---
Pre-Procedural Eval Section A - 24 Hr Update-Section A only Date of Service: 05/06/24 The patient is an INPATIENT: No Section B - Complete if H&P > 30 days Chief Complaint: Carpal tunnel syndrome, unspecified upper limb Details of Present Illness: Left carpal tunnel release Allergies: Allergies Allergy/AdvReac Type Severity Reaction Status Date / Time erythromycin base Allergy Intermediate Shortness Verified 05/06/24 09:46 of Breath quetiapine [From Seroquel] Allergy Intermediate Tremors, Verified 05/06/24 09:46 issue with eye pressure, Increased SI trazodone [TRAZODONE] Allergy Intermediate Difficulty Verified 05/06/24 09:46 breathing, shortness of breath Review of Systems Sugical H&P ROS: Negative: Constitution, Cardiovascular, Respiratory, Neurological, Psychiatric, Hem-Onc, Allergic/Immunologic, Gastrointestinal, Genitourinary, Musculoskeletal, Integumentary, Endocrine and Eyes/Ears/Nose/Throat Exam Surgical H&P Exam: Normal: HEENT, Normal: Heart, Normal: Lungs, Normal: Extremities, Normal: Abdomen, Normal: Skin and Normal: Neurological (Wake, alert) Plan Diagnosis/Plan: Unchanged I have reviewed the history and physical and performed a pertinent physical examination on my patient. No changes have occurred unless specified. Left carpal tunnel release Time Spent With Patient Time: Total time managing care of this patient today ___5_ minutes.
--- NOTE | 2024-05-06 10:36 | W.PM.OPN ---
Operative Note Operative Note Date of Service: 05/06/24 Narrative: Diagnosis: Left carpal tunnel syndrome Procedure: Left median nerve release Surgeon: Aguila Clayton MD PhD Description procedure: This bilateral carpal tunnel syndrome with the left side more affected than the right side. She was offered a decompression of the left median nerve first. The procedure and complications were explained. The patient was consented. She was brought to the operating room, where moderate sedation was applied. Prepping and draping was done followed by time-out. Marcaine was injected into the mid volar region. A midvolar incision was made. The ligamentum carpi transversum was opened sharply until the median nerve became visible. A Metzenbaum scissor was used to decompress the median nerve proximally and distally over its trajectory. Significant compression was present. Hemostasis was done. The incision was closed with 3 interrupted sutures. A compressive GOPI wrap was used for hemostasis. All sponge and needle counts were correct. Patient was transported to the recovery room. Anesthesia: Moderate sedation and local anesthetic Blood loss: Minimal Complications: None Disposition: Discharge home
--- NOTE | 2024-05-06 10:45 | P.DS_ITS ---
DS: Providers Provider Date of Service: 05/06/24 Date of discharge: 05/06/24 Primary care physician: Radha Gee MD Admitting clinician: Aguila Clayton DS: Diagnosis Discharge Diagnosis (1) Carpal tunnel syndrome: Status: Acute DS: Summary Time Attestation Discharge Coordination Time (in mins): 4 Quality: Safe Use of Opioids Does Pt have an Active Cancer Diagnosis on the Problem List?: No Quality: Stroke Does the patient have a stroke diagnosis?: No Physical Exam Vital Signs: Vital Signs: Last Vital Signs Temp 98.2 F 05/06/24 09:48 Pulse 61 05/06/24 09:48 Resp 18 05/06/24 09:48 BP 108/65 05/06/24 09:48 Pulse Ox 98 05/06/24 09:48 O2 Del Method Room Air 05/06/24 09:48 BMI result Body Mass Index 27.6 Discharge Plan Discharge Patient Disposition: Home, Self-Care Referrals: Radha Schultz MD [Primary Care Provider] - 1 Week Discharge Medications: New tramadol 50 mg tablet 50 mg PO BID PRN (Reason: pain) Qty: 10 0RF Continued triamcinolone acetonide 0.1 % cream 1 appl topical DAILY 30 Days Qty: 30 0RF fluocinolone acetonide oil [DermOtic Oil] 0.01 % drops 5 drp otic (ear) left BID 7 Days Qty: 20 0RF albuterol sulfate [Ventolin HFA] 90 mcg/actuation HFA aerosol inhaler 2 inh inhalation Q6H PRN (Reason: shortness of breath or wheezing) 30 Days Qty: 18 12RF lisinopril 10 mg tablet 10 mg PO QAM Qty: 90 2RF rosuvastatin 5 mg tablet 5 mg PO BEDTIME 90 Days Qty: 90 1RF esomeprazole magnesium 20 mg capsule,delayed release(DR/EC) 20 mg PO DAILY Qty: 90 1RF gabapentin 100 mg capsule 100 mg PO TID fluticasone propionate 50 mcg/actuation spray,suspension 2 spray intranasal Q2D clonazepam 0.5 mg tablet 0.5 mg PO BID PRN (Reason: Anxiety) gabapentin 800 mg tablet 800 mg PO TID duloxetine 60 mg capsule,delayed release(DR/EC) PO DAILY Held aspirin [Adult Aspirin Regimen] 81 mg tablet,delayed release (DR/EC) 81 mg PO QAM Hold Instructions: Resume on 05/13/24. you may resume one week after surgery Discharge Orders: Discharge Order (Routine); Ordered 05/06/24 Ordered By: Lenin Oseguera Diet: Advance to usual diet Activity on Discharge: As tolerated Activity Restrictions/Additional Instructions: After your carpal tunnel we ask that you observe the following guidelines. You may remove your stephanie wrap on post op day 3, as well as the dressing underneath it There are sutures in your wound, and you will need these removed 10-14 days after surgery. Please call the office to arrange this visit, You can use your hand as much as you like, however, please avoid straining or heavy lifting It will help swelling in your hand to keep it elevated when you are not using it. You can shower on post op day 1, but please keep wound dry You can drive when you feel comfortable and are off narcotics If you experience any signs of infection such as fever, chills or redness/discharge from your wound,please call office right away Print Language: Mongolian
[2024-05-06 11:08] VITALS: BP 157/91; PULSE 60; RESP 18
== END 2024-05-06 11:39 | disposition home or self-care (01) ==
PROVIDERS: PCP Internal Medicine; Visit Provider Neurological Surgery
PROC: (CPT 64721; principal; 2024-05-06 12:40)
DX: G56.02 Carpal tunnel syndrome, left upper limb (principal); R20.0 Anesthesia of skin; G89.4 Chronic pain syndrome; M79.602 Pain in left arm; M54.2 Cervicalgia; R26.89 Other abnormalities of gait and mobility; Z91.81 History of falling; Z98.1 Arthrodesis status; Z98.890 Other specified postprocedural states; Z79.891 Long term (current) use of opiate analgesic; Z79.82 Long term (current) use of aspirin; Z88.1 Allergy status to other antibiotic agents; Z88.8 Allergy status to other drugs, medicaments and biological substances
CPT/HCPCS: 64721; J2003

== ENCOUNTER → 2024-05-06 09:17 | Outpatient (BNV) | payer MEDICARE, MEDICAID, SELFPAY | PROVIDERS: PCP Internal Medicine; Visit Provider Physician Assistant | DX: G56.02 Carpal tunnel syndrome, left upper limb (principal) | CPT/HCPCS: 64721; 99499 ==

== ENCOUNTER 2024-05-27 14:55 | Outpatient (AMB) | payer MEDICARE, MEDICAID, SELFPAY ==
--- NOTE | 2024-05-27 15:44 | HO.SPINEOV ---
Intake Visit Reasons: 1st post op Intake Note: Ms. Arguelles is here today for her 1st post op. Dive Superintendent Required: No Allergies erythromycin base Allergy (Intermediate, Verified 05/06/24 09:46) Shortness of Breath quetiapine [From Seroquel] Allergy (Intermediate, Verified 05/06/24 09:46) Tremors, issue with eye pressure, Increased SI trazodone [TRAZODONE] Allergy (Intermediate, Verified 05/06/24 09:46) Difficulty breathing, shortness of breath Assessment & Plan Assessment & Plan (1) Carpal tunnel syndrome: Code(s): G56.00 - Carpal tunnel syndrome, unspecified upper limb Category: Medical Qualifiers: Laterality: bilateral Qualified Code(s): G56.03 - Carpal tunnel syndrome, bilateral upper limbs Plan Mrs arguelles came in today to have her sutures removed from her left carpal tunnel. She is noticing some improvement in the strength of the left hand as well as the numbness. I removed her sutures without incident. She is enquiring about getting the right side done as her EMG confirmed she had bilateral carpal tunnel. She still continues to have symptoms in the right hand with numbness and weakness. I have tentatively planned for July 01. All pertinent risks and benefits were discussed. Lenin Clayton MD, PhD [facility] Coding Level of Care Code Global (02568) Diagnoses Bilateral carpal tunnel syndrome G56.03 Laterality: bilateral
--- OUTSIDE RECORDS SUMMARY | 2024-05-27 16:27 | XMS_ITS | Encounter Summary ---
Author Organization [facility] Address [address] [place] [address] Care Team Providers Care Data Entry Specialist Name Role Phone Radha Schultz Primary Care Provider [phone] Encounter Details Date Type Department Care Team (Late st Contact Info) Description 10/15/2022 Telephone [facility] Neuro Interventional Radiology [address] [place], [place] [id number] Jorgito Lopez MD [address] [place], [place] [id number] Social History Tobacco Use Types Packs/Day Years [...] on filedocumented in this encounter Care Teams Data Entry Specialist Relationship Specialty Start Date End Date Radha Schultz [address] [place] [address] [place] [address] PCP - General Internal Medicine 08/23/21 documented as of this encounter
--- OUTSIDE RECORDS SUMMARY | 2024-05-27 16:27 | XMS_ITS | Clinical Summary ---
Author Organization [facility] Address [address] [place] [address] Care Team Providers Care Compounder [employer] Name Role Phone Radha Schultz Primary Care Provider [phone] Allergies Active Allergy Reactions Criticality Noted Date [...] Td or Tdap) 05/24/2020 05/24/2010 COVID-19 Vaccine ( season) 2023 03/05/2021, 06/01/2020 Alcohol/Substance Use Screening 02/25/2024 Depression Screening and Follow-Up 02/25/2024 Health Care Proxy Review 02/25/2024 Social Drivers of Health Annual Screening 02/25/2024 Influenza Vaccine (Season Ended) 2024 01/17/2021, 04/13/2019, 10/24/2014, Additional history exists Pneumococcal Vaccine: 50+ Years Completed 03/11/2022, 08/09/2011 Hepatitis B Vaccines Aged Out No long er eligible based on patient's age to complete this topic Insurance [facility] MEDICAID Care Teams Compounder [employer] Products Relationship Specialty Start Date End Date Radha Schultz [address] [place] [address] dr Koby Whalen, [place] [address] PCP - General Internal Medicine 08/23/21
--- OUTSIDE RECORDS SUMMARY | 2024-05-27 16:27 | XMS_ITS | Referral Summary ---
Author Organization [facility] Address [address] [place] [address] Care Team Providers Care Mosaic Tiler Name Role Phone Radha Schultz Primary Care Provider [phone] Allergies Active Allergy Reactions Criticality Noted Date [...] Treatment Not on file Insurance [place] [address] Care Teams Mosaic Tiler Relationship Specialty Start Date End Date Radha Schultz [address] [place] [address] [place] [address] PCP - General Internal Medicine 08/23/21
--- OUTSIDE RECORDS SUMMARY | 2024-05-27 16:27 | XMS_ITS | Clinical Summary ---
Author Organization [facility] Address [address] [place], [place] [id number] Care Team Providers Care Signal Circuit Designer Name Role Phone Radha Schultz MD Primary [...] age to complete this topic Care Teams Signal Circuit Designer Relationship Specialty Start Date End Date Radha Schultz MD [address] [place] [address] , [address] [facility] D/B/A: [facility] [place] [address] PCP - General Internal Medicine 01/14/20
== END 2024-05-27 16:39 | disposition home or self-care (01) ==
LOC: HO.HNS 14:56
PROVIDERS: PCP Internal Medicine; Visit Provider Physician Assistant
DX: G56.03 Carpal tunnel syndrome, bilateral upper limbs (principal)
CPT/HCPCS: 99024

== ENCOUNTER → 2024-05-27 14:55 | Outpatient (BNVA) | payer MEDICARE, MEDICAID, SELFPAY | PROVIDERS: PCP Internal Medicine; Visit Provider Physician Assistant | DX: G56.01 Carpal tunnel syndrome, right upper limb (principal); Z48.811 Encounter for surgical aftercare following surgery on the nervous system; Z98.890 Other specified postprocedural states | CPT/HCPCS: 99212 ==

== ENCOUNTER 2024-07-01 10:11 | Day surgery (SDC) | payer MEDICARE, MEDICAID, SELFPAY ==
--- OUTSIDE RECORDS SUMMARY | 2024-05-31 10:36 | XMS_ITS | Clinical Summary ---
Author Organization [facility] Address [address] [place] [address] Care Team Providers Care Human Service Worker Name Role Phone Radha Schultz Primary Care Provider [phone] Allergies Active Allergy Reactions Criticality Noted Date [...] patient's age to complete this topic Insurance [facility] [place] [address] Care Teams Human Service Worker Relationship Specialty Start Date End Date Radha Schultz [address] [place] [address] dr Koby [place], [place] [address] PCP - General Internal Medicine 08/23/21
--- OUTSIDE RECORDS SUMMARY | 2024-05-31 10:36 | XMS_ITS | Clinical Summary ---
Author Organization [facility] Address [address] [place], [place] [id number] Care Team Providers Care Manager Creative Services Name Role Phone Radha Schultz MD Primary [...] age to complete this topic Care Teams Manager Creative Services Relationship Specialty Start Date End Date Radha Schultz MD [address] [place] [address] , [address] [facility] Physician Associ D/B/A: [facility] [place] [address] PCP - General Internal Medicine 01/14/20
--- OUTSIDE RECORDS SUMMARY | 2024-05-31 10:36 | XMS_ITS | Referral Summary ---
Author Organization [facility] Address [address] [place] [address] Care Team Providers Care Director [employer] Name Role Phone Radha Schultz Primary Care Provider [phone] Allergies Active Allergy Reactions Criticality Noted Date [...] on file Insurance [employer] Care Teams Director [employer] Relationship Specialty Start Date End Date Radha Schultz [address] [place] [address] [place] [address] PCP - General Internal Medicine 08/23/21
--- OUTSIDE RECORDS SUMMARY | 2024-05-31 10:36 | XMS_ITS | Encounter Summary ---
Author Organization [facility] Address [address] [place] [address] Care Team Providers Care Event Attendant Name Role Phone Radha Schultz Primary Care Provider [phone] Encounter Details Date Type Department Care Team (Late st Contact Info) Description 10/15/2022 Telephone [facility] Neuro Interventional Radiology [address] [place], [place] [phone] Jorgito Lopez MD [address] [place] [address] Social History Tobacco Use Types Packs/Day Years [...] on filedocumented in this encounter Care Teams Event Attendant Relationship Specialty Start Date End Date Radha Schultz [address] [place] [address] [place] [address] PCP - General Internal Medicine 08/23/21 documented as of this encounter
[2024-07-01 11:53] VITALS: BMI 25.7
--- NOTE | 2024-07-01 11:54 | MHC.SHP ---
Pre-Procedural Eval Section A - 24 Hr Update-Section A only Date of Service: 07/01/24 The patient is an INPATIENT: No Section B - Complete if H&P > 30 days Chief Complaint: Carpal tunnel syndrome, unspecified upper limb Details of Present Illness: Right carpal tunnel syndrome Allergies: Allergies Allergy/AdvReac Type Severity Reaction Status Date / Time erythromycin base Allergy Intermediate Shortness Verified 05/06/24 09:46 of Breath quetiapine [From Seroquel] Allergy Intermediate Tremors, Verified 05/06/24 09:46 issue with eye pressure, Increased SI trazodone [TRAZODONE] Allergy Intermediate Difficulty Verified 05/06/24 09:46 breathing, shortness of breath Review of Systems Sugical H&P ROS: Negative: Constitution, Cardiovascular, Respiratory, Neurological, Psychiatric, Hem-Onc, Allergic/Immunologic, Gastrointestinal, Genitourinary, Musculoskeletal, Integumentary, Endocrine and Eyes/Ears/Nose/Throat Exam Surgical H&P Exam: Normal: HEENT, Normal: Heart, Normal: Lungs, Normal: Extremities, Normal: Abdomen, Normal: Skin and Normal: Neurological (Awake, alert) Plan Diagnosis/Plan: Unchanged I have reviewed the history and physical and performed a pertinent physical examination on my patient. No changes have occurred unless specified. Right carpal tunnel release Time Spent With Patient Time: Total time managing care of this patient today _5___ minutes.
[2024-07-01 12:06] VITALS: BP 135/71; PULSE 66; RESP 16; TEMP 36.5; O2SAT 100
--- NOTE | 2024-07-01 13:12 | PM.DS ---
DS: Providers Provider Date of Service: 07/01/24 Date of discharge: 07/01/24 Primary care physician: Radha Gee MD Admitting clinician: Aguila Clayton DS: Diagnosis Discharge Diagnosis (1) Carpal tunnel syndrome: Status: Acute DS: Summary Time Attestation Discharge Coordination Time (in mins): 4 Quality: Safe Use of Opioids Does Pt have an Active Cancer Diagnosis on the Problem List?: No Quality: Stroke Does the patient have a stroke diagnosis?: No Physical Exam Vital Signs: Vital Signs: Last Vital Signs Temp 97.7 F 07/01/24 12:06 Pulse 66 07/01/24 12:06 Resp 16 07/01/24 12:06 BP 135/71 07/01/24 12:06 Pulse Ox 100 07/01/24 12:06 O2 Del Method Room Air 07/01/24 12:06 BMI result Body Mass Index 25.7 Discharge Plan Discharge Patient Disposition: Home, Self-Care Referrals: Radha Schultz MD [Primary Care Provider] - 1 Week Discharge Medications: New tramadol 50 mg tablet 50 mg PO Q6H PRN (Reason: pain) Qty: 10 0RF Continued triamcinolone acetonide 0.1 % cream 1 appl topical DAILY 30 Days Qty: 30 0RF fluocinolone acetonide oil [DermOtic Oil] 0.01 % drops 5 drp otic (ear) left BID 7 Days Qty: 20 0RF albuterol sulfate [Ventolin HFA] 90 mcg/actuation HFA aerosol inhaler 2 inh inhalation Q6H PRN (Reason: shortness of breath or wheezing) 30 Days Qty: 18 12RF lisinopril 10 mg tablet 10 mg PO QAM Qty: 90 2RF rosuvastatin 5 mg tablet 5 mg PO BEDTIME 90 Days Qty: 90 1RF esomeprazole magnesium 20 mg capsule,delayed release(DR/EC) 20 mg PO DAILY Qty: 90 1RF gabapentin 100 mg capsule 100 mg PO TID fluticasone propionate 50 mcg/actuation spray,suspension 2 spray intranasal Q2D tramadol 50 mg tablet 50 mg PO BID PRN (Reason: pain) Qty: 10 0RF clonazepam 0.5 mg tablet 0.5 mg PO BID PRN (Reason: Anxiety) gabapentin 800 mg tablet 800 mg PO TID duloxetine 60 mg capsule,delayed release(DR/EC) PO DAILY Held aspirin [Adult Aspirin Regimen] 81 mg tablet,delayed release (DR/EC) 81 mg PO QAM Hold Instructions: Resume on 07/04/24. You may resume aspirin 3 days after surgery Discharge Orders: Discharge Order (Routine); Ordered 07/01/24 Ordered By: Lenin Oseguera Diet: Advance to usual diet Activity on Discharge: As tolerated Activity Restrictions/Additional Instructions: After your carpal tunnel surgery we ask that you follow these guidelines: You may remove your stephanie wrap on post op day 3, as well as the dressing underneath it There are sutures in your wound, and you will need these removed 10-14 days after surgery. Please call the office to arrange this visit, You can use your hand as much as you like, however, please avoid straining or heavy lifting It will help swelling in your hand to keep it elevated when you are not using it. You can shower on post op day 1, but please keep wound dry You can drive when you feel comfortable and are off narcotics If you experience any signs of infection such as fever, chills or redness/discharge from your wound,please call office right away Print Language: Colombian
--- NOTE | 2024-07-01 13:24 | W.PM.OPN ---
Operative Note Operative Note Date of Service: 07/01/24 Narrative: Diagnosis: Right carpal tunnel syndrome Procedure: Right median nerve release Surgeon: Aguila Clayton MD PhD Description procedure: This patient is suffering from a bilateral carpal tunnel syndrome. She underwent a left carpal tunnel release 3 weeks ago. She now comes for a right carpal tunnel release. This is a recurrent carpal tunnel syndrome on the right side and the release was previously done in another institution. The patient was offered a decompression of the median nerve. The procedure complications were explained. The patient was consented. The patient was brought to the operating room. Prepping and draping was done followed by time-out. Marcaine was injected into the mid volar region. A midvolar incision was made. The ligamentum carpi transversum was opened sharply until the median nerve became visible. A Metzenbaum scissor was used to decompress the median nerve proximally and distally over its trajectory. Significant compression was present. Hemostasis was done. The incision was closed with 3 interrupted sutures. A compressive GOPI wrap was used for hemostasis. All sponge and needle counts were correct. Patient was transported to the recovery room. Anesthesia: Moderate sedation and local anesthetic Blood loss: Minimal Complications: None Disposition: Discharge home
[2024-07-01 14:39] VITALS: BP 154/82; PULSE 61; RESP 18; O2SAT 100
== END 2024-07-01 14:59 | disposition home or self-care (01) ==
PROVIDERS: PCP Internal Medicine; Visit Provider Neurological Surgery
PROC: (CPT 64721; principal; 2024-07-01 14:20)
DX: G56.01 Carpal tunnel syndrome, right upper limb (principal); Z98.890 Other specified postprocedural states; Z88.1 Allergy status to other antibiotic agents; Z88.8 Allergy status to other drugs, medicaments and biological substances
CPT/HCPCS: 64721; J2003

== ENCOUNTER → 2024-07-01 10:11 | Outpatient (BNV) | payer MEDICARE, MEDICAID, SELFPAY | PROVIDERS: PCP Internal Medicine; Visit Provider Physician Assistant | DX: G56.03 Carpal tunnel syndrome, bilateral upper limbs (principal) | CPT/HCPCS: 99499 ==

== ENCOUNTER 2024-07-07 10:30 | Outpatient (AMB) | payer MEDICARE, MEDICAID, SELFPAY ==
--- NOTE | 2024-07-07 10:34 | A.OFFVIS_ITS ---
Vital Signs 07/07/24 10:35 Height 5 ft 4 in BP 120/78 Blood Pressure Location Rt brachial Position Sitting Pulse 71 Pulse Source Pulse Oximeter Pulse Oximetry (%) 100 Oxygen Delivery Method Room Air Intake Visit Reasons: s/p EGD Intake Note: Patient presents for follow up EGD Allergies erythromycin base Allergy (Intermediate, Verified 07/07/24 10:37) Shortness of Breath quetiapine [From Seroquel] Allergy (Intermediate, Verified 07/07/24 10:37) Tremors, issue with eye pressure, Increased SI trazodone [TRAZODONE] Allergy (Intermediate, Verified 07/07/24 10:37) Difficulty breathing, shortness of breath HPI HPI s/p EGD: Details: Assessment & Plan (1) Dysphagia: Code(s): R13.10 - Dysphagia, unspecified Plan She HAD AN EGD at [facility] in [place] and they found Schatskis ring and it was dilated. She did have dysphagia as the indication for the procedure, and this was successful. She now has odynophagia of pills and they feel like they get stuck at the GE jxn. She also has trouble swallowing things like rice that will stick higher in the throat that near chokes her. She was told she would need stretching again every 3 years. And she found that the dilation lasted about this time. She has never been on any consistent acid reducing medication. She does not experience any subjective consistent HB except occasionally. She does burp alot. She will have GERD when she bends over. ROV after EGD Orders: Orders EGD with Hernandez - GI Use Only Today R13.10 - Dysphagia, unspecified Comprehensive Met. Panel Today R13.10 - Dysphagia, unspecified Complete Blood Count Auto Diff Today R13.10 - Dysphagia, unspecified Labs: Laboratory Tests 06/11/23 07:10 WBC 6.7 Hgb 13.5 Hct 40.4 Plt Count 258 Estimated GFR > 60 Total Bilirubin 0.3 AST 17 ALT 11 Alkaline Phosphatase 106 EGD 04/21/24 Findings: Larynx:normal Esophagus: GE junction at 38 cm, diaphragm hiatus at 38 cm, schatzki ring noted with mild esophagitis, balloon dilation done to 20 mm at UES and LES--no tears seen Stomach: erosive gastritis at the antrum . Biopsies were obtained. Grade 2 flap valve on retroflexed examination of the cardia. Duodenum: mild erythema Intervention: Biopsies as noted above, balloon dilation Impression/Findings: erosive gastritis duodenitis esophagitis schatzki ring PLAN: check if taking PPI or H2B GERD precautions if H pylori pos then treat Biopsy Received: 04/21/24 Diagnosis A. Stomach, biopsy: Antral-type mucosa within normal limits; no Helicobacter organisms seen. B. Stomach, polypectomy: Clinically polypoid oxyntic mucosa within normal limits; no Helicobacter organisms seen. C. GE junction, biopsy: - Cardiofundic-type mucosa with moderate chronic inactive inflammation; no intestinal metaplasia seen. - Squamous epithelium within normal limits. D. Esophagus, distal, biopsy: Squamous epithelium within normal limits; no inflammation seen. TODAY'S VISIT Her swallowing did improve with the dilation. She has not been on any consistent acid reducing therapy in the past which is surprising given the level of gastritis we saw on exam. It is entirely possible as well that chronic acid splashing is causing repeated the esophageal strictures and therefore it is entirely possible she will need lifelong acid suppression therapy. Fortunately at this point there is no sign of Barretts esophagus. Time was spent educating her about possible causes for her gastritis she does not seem to be taking any offending medications except for aspirin, so it is entirely possible that this is genetic in that she does not make the mucus layered to protect her stomach well. She did receive in his taking the esomeprazole at this time. She notes that it seems to make her stomach hurt when she takes it but also she takes all of her meds at the same time. I did tell her she could try waiting and taking it after she eats or even moving it to later in the day dosing. If this is successful then will try moving her to a different PPI to see if she tolerates it better. Return office visit in 8 weeks [facility] Medical History (Updated 07/07/24 @ 15:43 by MARANDA Nix) Screening for cervical cancer Bilateral hand numbness UTI (urinary tract infection) Right knee pain Left knee pain Pre-op evaluation Osteoarthritis of lumbar spine Left wrist pain Tick bite Aneurysm of internal carotid artery Pulmonary nodules Pulmonary nodule UTI (urinary tract infection) Physical exam Current smoker Right wrist pain Tick bite of back Leg weakness Left ear pain Encounter for annual physical exam Schatzki's ring of distal esophagus TIA (transient ischemic attack) PTSD (post-traumatic stress disorder) HTN (hypertension) Internal carotid aneurysm Gait disorder Tobacco dependence Emphysema lung Loss of balance Mild recurrent major depression Polyarthralgia Daytime sleepiness Leukopenia De Quervain's disease (tenosynovitis) Anxiety Weight gain Dyslipidemia WILL (obstructive sleep apnea) Postlaminectomy syndrome, cervical Chronic pain syndrome Disc degeneration, lumbar Spondylosis without myelopathy or radiculopathy, lumbar region Surgical History (Updated 07/07/24 @ 10:55 by MARANDA Nix) S/P cervical spinal fusion History of esophagogastroduodenoscopy (EGD) H/O colonoscopy Status post lumbar spine surgery for decompression of spinal cord History of fusion of cervical spine History of carpal tunnel release Family History Father Emphysema of lung Mother Stroke Hypertension Diabetes Dementia Brother Bladder cancer Son No problems noted. Daughter No problems noted. 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 Cognitive needs: Yes Hearing needs: No Vision needs: Yes Review of Systems Const Denies fatigue, Denies fever(s), Denies night sweats, Denies poor appetite and Denies weight loss Eyes Details: glasses Reports requires corrective lenses ENT Reports Normal hearing present, Reports dysphagia, Denies odynophagia, Denies throat swelling and Denies tongue swelling Card Reports no additional complaints Resp Reports no additional complaints GI Details: Reports abdominal pain, Denies melena, Denies bloating, Denies hematochezia, Denies constipation, Denies GI cramping, Reports dysphagia, Denies excessive flatus, Denies early satiety, Denies heartburn, Denies diarrhea, Denies nausea, Denies odynophagia, Denies vomiting and Denies hematemesis Musc Reports abnormal gait and Reports myalgias Skin/Breast Denies pruritus, Denies lesions, Denies rash and Denies jaundice Neuro Reports Normal hearing present, Denies Abnormal speech present and Reports abnormal gait Endo Denies fatigue Aller/Immun Denies throat swelling and Denies tongue swelling Physical Exam Vital Signs: Last Vital Signs Pulse 71 07/07/24 10:35 BP 120/78 07/07/24 10:35 Pulse Ox 100 07/07/24 10:35 Oxygen Delivery Method Room Air 07/07/24 10:35 Const General: cooperative, no acute distress, well developed and well groomed Nutritional Appearance: well nourished and overweight Orientation/consciousness: oriented to person, oriented to place and oriented to time Limitations: No language barrier and ambulation with walker HEENT Head: Yes normocephalic and Yes atraumatic Eyes General: appearance normal, both eyes and all related structures Pupils: Equal, round and reactive pupils present Neck Neck: Yes normal visual inspection and Yes no lymphadenopathy Thyroid: Thyroid normal Resp Effort & Inspection: normal respiratory effort and able to speak in complete sentences Auscultation: clear to auscultation bilaterally Cardio Rate: regular rate Rhythm: regular rhythm Heart sounds: Normal, physiologic split S2 sound present Peripheral pulses: radial pulses present and posterior tibial pulses present GI Inspection: No distended and No Abdominal panniculus present Palpation (GI): Soft to palpation, nontender, no guarding, not rigid and No hepatosplenomegaly present Percussion: Yes normal to percussion Auscultation: normal bowel sounds Rectal Exam - Female: deferred Skin General skin exam: no rashes or lesions noted, turgor normal, skin not dry, no jaundice, No spider nevi and no striae Rashes: no rashes Nails: normal Neuro General: oriented to person, oriented to place and oriented to time Cranial nerves: Yes Equal, round and reactive pupils present and Yes Normal h earing present Speech: No Abnormal speech present Extrem General: Yes normal to inspection, No clubbing, No cyanosis and No edema Psych Appearance: grossly normal and well kempt Mental Status: mental status grossly normal Speech and movement: Normal speech and movement present Affect: normal affect Attitude: cooperative Thought process: Normal thought process present and not confabulating Thought content: Normal thought content present Insight: Fair insight present (Psych) and Limited insight present (Psych) Judgement: Fair judgement present (Psych) and Limited judgement present (Psych) Assessment & Plan Assessment & Plan (1) History of esophageal stricture: Code(s): Z87.19 - Personal history of other diseases of the digestive system Category: Medical (2) Dysphagia: Code(s): R13.10 - Dysphagia, unspecified Category: Medical (3) Erosive gastritis: Comment: Of the antrum on 2024 EGD, negative for H pylori Code(s): K29.60 - Other gastritis without bleeding Category: Medical Plan Her swallowing did improve with the dilation. She has not been on any consistent acid reducing therapy in the past which is surprising given the level of gastritis we saw on exam. It is entirely possible as well that chronic acid splashing is causing repeated the esophageal strictures and therefore it is entirely possible she will need lifelong acid suppression therapy. Fortunately at this point there is no sign of Barretts esophagus. Time was spent educating her about possible causes for her gastritis she does not seem to be taking any offending medications except for aspirin, so it is entirely possible that this is genetic in that she does not make the mucus layered to protect her stomach well. She did receive in his taking the esomeprazole at this time. She notes that it seems to make her stomach hurt when she takes it but also she takes all of her meds at the same time. I did tell her she could try waiting and taking it after she eats or even moving it to later in the day dosing. If this is successful then will try moving her to a different PPI to see if she tolerates it better. Return office visit in 8 weeks Coding Level of Care Code Est Pt Level 3 (63583) Diagnoses History of esophageal stricture Z87.19 Dysphagia R13.10 Erosive gastritis K29.60
[2024-07-07 10:35] VITALS: BP 120/78; PULSE 71; O2SAT 100
--- OUTSIDE RECORDS SUMMARY | 2024-07-07 11:32 | XMS_ITS | Referral Summary ---
Author Organization [facility] Address [address] [place] [address] Care Team Providers Care Rn Transitional Name Role Phone Radha Schultz Primary Care Provider [phone] Allergies Active Allergy Reactions Criticality Noted Date [...] Treatment Not on file Insurance [place] [address] Care Teams Rn Transitional Relationship Specialty Start Date End Date Radha Schultz [address] [place] [address] [place] [address] PCP - General Internal Medicine 08/23/21
--- OUTSIDE RECORDS SUMMARY | 2024-07-07 11:32 | XMS_ITS | Continuity of Care Document ---
Author Organization [facility] Address [address] [place] [address] Phone Care Team Providers Care Dip Dyer Name Role Phone Enabling UDS, Provider UDS Unavailable Unava ilable Allergies, Adverse Reactions, Alerts Substance Reaction Status Criticality TRAZODONE HCL Active No Information erythromycin base Unknown Active No Informa tion Medications Medication Instructions Dosage Effective Dates (start - stop) Status Comments clonazepam 1 mg tablet take 1 tablet by oral route every day as needed for anxiety 1 MG - Active DermOtic Oil 0.01 % ear drops instill 5 drop by otic route 2 times every day into affected ear(s) 5.00 drop - Active FLONASE ALLERGY RELIEF (unknown strength) spray 1 - 2 spray by intranasal route every day in each nostril as needed Not Available - Active Procedures Procedure Date Clin depres scrn Positive no f/u doc May OFFICE/OUTPATIENT VISIT, [facility] Advance Directives Directive Yes / No Effective Date File Name No Information Encounters Encounter Description Practice Location Reason(s) For Visit Diagnoses Date Provider Providers Copied on Encounter [facility], [address], [place], [id number], [place] tel:[phone] [facility] [address] [facility] No Information 9 Enabling Provider UDS. [address] [place], [address], [place]. tel:[phone] OFFICE/OUTPA TIENT VISIT, [facility], [address], [place], [id number], [place] tel:[phone] Follow Up of ER (chief complaint) Body mass index (BMI) 24.0-24.9, adultEncounter for screening for other disorderEustachia n tube disorder of right earSeborrheic dermatitisAnxiety disorder, unspecifiedDyspha aisha, unspecified No Information [facility], [address], [place], [id number], tel:[phone] Medical No Information No Information Family History Family Member Type Diagnosis Age At Onset Mother Problem (finding) stroke Mother Problem (finding) Diabetes mellitus Brother Problem (finding) Cancer, unknown Payers Payer name Insurance type Covered alliance party ID Authoriza tion(s) No Information Social History Type Description Quantity Date Captured Comments Alcohol Use Details Unknown Caffeine Use Details Unknown Tobacco Use Status No Information Smoking Status No Information Sex Female Chief Complaint And Reason For Visit No Information Reason For Referral Reason For Referral No Information Plan Of Treatment Date Type Action Status Goal Influenza vaccine. Due on Oc due Goal Colorectal cance r screen, stool DNA QuARTS with hemoglobin ANDI. Due on due Goal FOBT. Due on due Goal HIV. Due on due Goal Colonoscopy. Due on due Goal PAP. Due on due Goal Pap/HPV testing. Due on due Goal Zoster vaccine. Due on due Goal Depression screening. Due on due Goal Mammogram. Due on due Goal Colonoscopy. Due on due Goal HIV. Due on due Goal Influenza vaccine. Due on due Goal Mammogram. Due on 9 due Goal Colorectal cance r screen, stool DNA QuARTS with hemoglobin ANDI. Due on due Goal FOBT. Due on due Goal PAP. Due on due Goal Lifestyle education regardin g diet completed History Of Present Illness Encounter Date Complaint History Of Lucero nt Illness Follow Up of ER Recently in the ER treated for sinus infection, finished antibiotics but still having trouble hearing out of her right ear from what she reports as a punctured ear drum. Using Flonase and Cipro eardrops. No history of seasonal allergies.She says that she will be returning to [place] this Friday to care for her mom who is suspected to have colon cancer, the patient is anxious about these changes, she reports a history of PTSD and anxiety/depression. Says that she uses clonazepam, and only has 1 tablet left. Follow Up of ER Functional Status Date Functional Assessmen t No Information Instructions Date Instruction Additional Infor mation She reports a histor y of having a Schatzki ring that was dilated back in 2016 via endoscopy, she is reporting symptoms of dysphagia again, as she is returning to [place] this Friday I recommend she establish care with a provider there so that this can be further evaluated Related to Dysphagia, unspecified Derm-otic oil to apply to ear ca nals Related to Seborrheic dermatitis Discussed with alberto saenz that I cannot prescribe long-term clonazepam, however I did provide her with 2 tablets to use during her travels back to [place], she gets anxiety on airplanes. Related to Anxiety disorder, unspecified Recommended patient use [id number] Sudafed, and continue Flonase Related to Eustachian tube disorder of right ear Giving encouragement to exercise Related to BMI of 24.0 - 24.9 (Normal) Lifestyle education regarding di et Related to BMI of 24.0 - 24.9 (Normal) Assessments Type Assessment Date No Information Patient Care Teams Name Effective Dates (start - stop) Status Members No Information
--- OUTSIDE RECORDS SUMMARY | 2024-07-07 11:32 | XMS_ITS | Clinical Summary ---
Author Organization [facility] Address [address] [place], [place] [id number] Care Team Providers Care Audio Video Tech Name Role Phone Radha Schultz MD Primary [...] age to complete this topic Care Teams Audio Video Tech Relationship Specialty Start Date End Date Radha Schultz MD [address] [place] [address] , [address] [facility] D/B/A: [facility] [place] [address] PCP - General Internal Medicine 01/14/20
--- OUTSIDE RECORDS SUMMARY | 2024-07-07 11:32 | XMS_ITS | Clinical Summary ---
Author Organization [facility] Address [address] [place] [address] Care Team Providers Care Hospice Volunteer Name Role Phone Radha Schultz Primary Care Provider [phone] Allergies Active Allergy Reactions Criticality Noted Date [...] patient's age to complete this topic Insurance [employer] MEDICAID Care Teams Hospice Volunteer Relationship Specialty Start Date End Date Radha Schultz [address] [place] [address] dr Koby [place]alen, [place] [address] PCP - General Internal Medicine 08/23/21
--- OUTSIDE RECORDS SUMMARY | 2024-07-07 11:32 | XMS_ITS | Encounter Summary ---
Author Organization [facility] Address [address] [place] [address] Care Team Providers Care Product Safety Professional Name Role Phone Radha Schultz Primary Care Provider [phone] Encounter Details Date Type Department Care Team (Late st Contact Info) Description 10/15/2022 Telephone [facility] Neuro Interventional Radiology [address], [place] [id number] Jorgito Lopez MD [address] [place], [place] [id number] Social History Tobacco Use Types Packs/Day Years [...] on filedocumented in this encounter Care Teams Product Safety Professional Relationship Specialty Start Date End Date Radha Schultz [address] [place] [address] [place] [address] PCP - General Internal Medicine 08/23/21 documented as of this encounter
== END 2024-07-07 11:20 | disposition home or self-care (01) ==
LOC: HO.HGI 10:31
PROVIDERS: PCP Internal Medicine; Visit Provider Nurse Practitioner
DX: Z87.19 Personal history of other diseases of the digestive system (principal); R13.10 Dysphagia, unspecified; K29.60 Other gastritis without bleeding
CPT/HCPCS: 99213

== ENCOUNTER → 2024-07-07 10:30 | Outpatient (BNVA) | payer MEDICARE, MEDICAID, SELFPAY | PROVIDERS: PCP Internal Medicine; Visit Provider Nurse Practitioner | DX: R13.10 Dysphagia, unspecified (principal); K29.60 Other gastritis without bleeding; Z87.19 Personal history of other diseases of the digestive system | CPT/HCPCS: 99212 ==

== ENCOUNTER 2024-07-20 15:13 | Outpatient (AMB) | payer MEDICARE, MEDICAID, SELFPAY ==
--- OUTSIDE RECORDS SUMMARY | 2024-07-20 15:16 | XMS_ITS | Clinical Summary ---
Author Organization [facility] Address [address] [place], [place] [id number] Care Team Providers Care Cementing Machine Operator Name Role Phone Radha Schultz MD Primary [...] age to complete this topic Care Teams Cementing Machine Operator Relationship Specialty Start Date End Date Radha Schultz MD [address] [place] [address] , [address] [facility] D/B/A: [facility] [place] [address] PCP - General Internal Medicine 01/14/20
--- NOTE | 2024-07-20 15:24 | A.SPINEOV_ITS ---
Intake Visit Reasons: suture removal Intake Note: Ms. Arguelles is here today to have her suture removal. Condemnation Engineer Required: No Allergies erythromycin base Allergy (Intermediate, Verified 07/07/24 10:37) Shortness of Breath quetiapine [From Seroquel] Allergy (Intermediate, Verified 07/07/24 10:37) Tremors, issue with eye pressure, Increased SI trazodone [TRAZODONE] Allergy (Intermediate, Verified 07/07/24 10:37) Difficulty breathing, shortness of breath Assessment & Plan Assessment & Plan (1) Carpal tunnel syndrome: Code(s): G56.00 - Carpal tunnel syndrome, unspecified upper limb Category: Medical Qualifiers: Laterality: bilateral Qualified Code(s): G56.03 - Carpal tunnel syndrome, bilateral upper limbs Dimas Harris is a pleasant 64 year old female who comes in today for suture removal after having a left sided carpal tunnel release completed by Dr. Clayton on 07/01/24. She reports that overall she has been feeling much better than she did prior to surgery, but does still have some numbness in her left hand, especially on her fingertips. She additionally reports today that her sutures popped out a few days ago without any known inciting incident. On examination, the patient has a well-approximated surgical incision that is almost completely healed on the ventral surface of her wrist. There are no sutures left in place. She is able to curl her fingertips to the distal palmar crease without much issue. I would like her to follow up with us again in 6 weeks for her 2nd postoperative visit. Carlos Clayton MD,PhD [facility] Coding Level of Care Code Global (13589) Diagnoses Bilateral carpal tunnel syndrome G56.03 Laterality: bilateral
== END 2024-07-20 15:42 | disposition home or self-care (01) ==
LOC: HO.HNS 15:14
PROVIDERS: PCP Internal Medicine; Visit Provider Physician Assistant
DX: G56.03 Carpal tunnel syndrome, bilateral upper limbs (principal)
CPT/HCPCS: 99024

== ENCOUNTER → 2024-07-20 15:13 | Outpatient (BNVA) | payer MEDICARE, MEDICAID, SELFPAY | PROVIDERS: PCP Internal Medicine; Visit Provider Physician Assistant | DX: Z48.02 Encounter for removal of sutures (principal); G56.01 Carpal tunnel syndrome, right upper limb; Z98.890 Other specified postprocedural states | CPT/HCPCS: 99212 ==